=== PATIENT | male | born 1945 | race Caucasian/White ===

== ENCOUNTER 2018-06-29 11:27 | Emergency (ER) | payer MEDICARE, BC ==
[2018-06-29 11:53] VITALS: BP 125/76
[2018-06-29] MEDS ORDERED: methylPREDNISolone Sodium Succinate 125 MG/2 ML SDV IVPUSH ONE (12:10)
[2018-06-29] MEDS ORDERED: Albuterol/Ipratropium 3.0-0.5 MG/3 ML Neb Soln NEB ONE (12:10)
[2018-06-29] MEDS ORDERED: Sodium Chloride 0.9% 10 ML Syringe FLUSH PRN (12:10)
--- NOTE | 2018-06-29 12:11 | EDM.PDOC ---
ED HPI GENERAL MEDICAL PROBLEM - General Chief Complaint: Respiratory Problem Stated Complaint: DIFFICULTY BREATHING Time Seen by Provider: 06/29/18 11:58 Source of Information: Reports: Patient, RN Notes Reviewed - History of Present Illness INITIAL COMMENTS - FREE TEXT/NARRATIVE: 73-year-old male comes in with severe shortness of breath. Have history of COPD. He states he was a heavy smoker for many years, quit about 15 years ago. He does have oxygen at home, uses it as needed but apparently not all the time. He has become much more short of breath than usual the past 4-5 days. He's now he can only walk 5 or 10 feet does get extremely short of breath. He has occasional chronic cough but states it is not any worse than usual. He is not aware of any recent fever or chills although he does have very low-grade fever on arrival to ED. He denies current sore throat. He denies chest or abdominal pain. No nausea or vomiting. - Related Data Allergies Allergy/AdvReac Type Severity Reaction Status Date / Time No Known Allergies Allergy Verified 06/29/18 11:40 Home Meds: Home Meds Albuterol [Proventil HFA] 1 puff INH Q4H PRN 01/11/15 [History] Brinzolamide [Azopt 1% Ophth Susp] 1 drop EYEBOTH BID 01/11/15 [History] Travoprost [Travatan Z 0.004% Ophth Soln] 1 drop EYEBOTH BEDTIME 01/11/15 [ History] Brimonidine Tartrate [Brimonidine Tartrate 0.2% Ophth Soln] 1 drop EYEBOTH BID 09/01/15 [History] Umeclidinium Brm/Vilanterol Tr [Anoro Ellipta 62.5-25 Mcg INH] 1 each IH DAILY 09/01/15 [History] Budesonide/Formoterol [Symbicort 160-4.5 MCG] 2 puff INH BID 06/29/18 [History] Past Medical History HEENT History: Reports: Impaired Vision Other HEENT History: detatched retina to R) eye, wears reading glasses Cardiovascular History: Reports: High Cholesterol Respiratory History: Reports: COPD Other Respiratory History: emphysema - Infectious Disease History Infectious Disease History: Reports: Measles Social & Family History - Tobacco Use Smoking Status *Q: Former Smoker Years of Tobacco use: 62 Used Tobacco, but Quit: No Second Hand Smoke Exposure: No - Caffeine Use Caffeine Use: Reports: Coffee - Alcohol Use Days Per Week of Alcohol Use: 7 Number of Drinks Per Day: 2 Total Drinks Per Week: 14 - Recreational Drug Use Recreational Drug Use: No ED ROS GENERAL - Review of Systems Review Of Systems: See Below Constitutional: Denies: Fever, Chills, Diaphoresis HEENT: Denies: Sinus Problem, Throat Pain Respiratory: Reports: Shortness of Breath, Wheezing (Severe), Cough. Denies: Pleuritic Chest Pain ( worse than usual), Sputum (Scant) Cardiovascular: Reports: Lightheadedness. Denies: Chest Pain GI/Abdominal: Denies: Abdominal Pain, Nausea, Vomiting Musculoskeletal: Denies: Shoulder Pain, Arm Pain Skin: Denies: Rash Neurological: Denies: Numbness, Tingling ED EXAM, GENERAL - Physical Exam Exam: See Below General Appearance: Alert, Moderate Distress Eye Exam: Bilateral Eye: PERRL Nose: Normal Inspection Throat/Mouth: Normal Inspection, Normal Oropharynx Head: Atraumatic. No: Facial Swelling Neck: Supple, Other (No JVD) Respiratory/Chest: Respiratory Distress (Moderate), Wheezing (Moderate), Accessory Muscle Use. No: Rhonchi Cardiovascular: Tachycardia GI/Abdominal: Soft, Non-Tender Back Exam: No: CVA Tenderness (L), CVA Tenderness (R) Extremities: Normal Inspection. No: Pedal Edema, Leg Pain Neurological: Alert, Oriented, No Motor/Sensory Deficits Skin Exam: Warm, Dry, Normal Color EKG INTERPRETATION EKG Date: 06/29/18 Rhythm: Other (Sinus tachycardia) Rate (Beats/Min): 108 [place]: Normal P-Wave: Present QRS: Other (Q waves V2) ST-T: Normal Course - Vital Signs Last Recorded V/S: Last Vital Signs Temp 99.3 F 06/29/18 11:35 Pulse 132 H 06/29/18 11:35 Resp 20 06/29/18 11:35 BP 125/76 06/29/18 11:35 Pulse Ox 96 06/29/18 13:26 - Orders/Labs/Meds Orders: Active Orders 24 hr Category Date Time Status EKG 12 Lead [EKG Documentation Completion] [RC] STAT Care 06/29/18 12:09 Active Oxygen Therapy [RC] ASDIRECTED Care 06/29/18 12:10 Active Peripheral IV Care [RC] . DIRECTED Care 06/29/18 12:10 Active RT Aerosol Therapy [RC] ASDIRECTED Care 06/29/18 12:10 Active RT Aerosol Therapy [RC] ASDIRECTED Care 06/29/18 13:13 Active Chest 1V Frontal [CR] Stat Exams 06/29/18 12:08 Taken Sodium Chloride 0.9% [Saline Flush] Med 06/29/18 12:10 Active 10 ml FLUSH ASDIRECTED PRN Peripheral IV Insertion Pediatric [OM.PC] Routine Oth 06/29/18 12:10 Ordered Medication Orders Sodium Chloride (Saline Flush) 10 ml FLUSH ASDIRECTED PRN PRN Reason: Keep Vein Open Last Admin: 06/29/18 12:20 Dose: 10 ml Labs: Laboratory Tests 06/29/18 06/29/18 06/29/18 Range/Units 12:40 12:40 12:40 WBC 7.37 (4.23-9.07) K/mm3 RBC 5.00 (4.63-6.08) M/mm3 Hgb 15.3 (13.7-17.5) gm/L Hct 46.8 (40.1-51.0) % MCV 93.6 H (79.0-92.2) fl MCH 30.6 (25.7-32.2) pg MCHC 32.7 (32.2-35.5) g/dl RDW Std Deviation 45.7 H (35.1-43.9) fL Plt Count 229 (163-337) K/mm3 MPV 9.6 (9.4-12.3) fl Neutrophils % (Manual) 78 H (40-60) % Band Neutrophils % 0 (0-10) % Lymphocytes % (Manual) 7 L (20-40) % Atypical Lymphs % 0 % Monocytes % (Manual) 10 (2-10) % Eosinophils % (Manual) 5 (0.8-7.0) % Basophils % (Manual) 0 L (0.2-1.2) Platelet Estimate Adequate RBC Morph Comment Normal D-Dimer, Quantitative (0.19-0.50) mg/L Sodium 142 (136-145) mEq/L Potassium 4.7 (3.5-5.1) mEq/L Chloride 103 (98-107) mEq/L Carbon Dioxide 27 (21-32) mEq/L Anion Gap 16.7 H (5-15) BUN 9 (7-18) mg/dL Creatinine 0.9 (0.7-1.3) mg/dL Est Cr Clr Drug Dosing 65.21 mL/min Estimated GFR (MDRD) > 60 (>60) mL/min BUN/Creatinine Ratio 10.0 L (14-18) Glucose 92 (83-115) mg/dL Calcium 9.2 (8.5-10.1) mg/dL Total Bilirubin 0.7 (0.2-1.0) mg/dL AST 30 (15-37) U/L ALT 34 (16-63) U/L Alkaline Phosphatase 76 (46-116) U/L Troponin I 0.202 H* (0.00-0.056) ng/mL C-Reactive Protein 0.7 (<1.0) mg/dL Total Protein 7.0 (6.4-8.2) g/dl Albumin 3.6 (3.4-5.0) g/dl Globulin 3.4 gm/dL Albumin/Globulin Ratio 1.1 (1-2) TSH 3rd Generation (0.358-3.74) uIU/mL 06/29/18 06/29/18 Range/Units 12:40 12:40 WBC (4.23-9.07) K/mm3 RBC (4.63-6.08) M/mm3 Hgb (13.7-17.5) gm/L Hct (40.1-51.0) % MCV (79.0-92.2) fl MCH (25.7-32.2) pg MCHC (32.2-35.5) g/dl RDW Std Deviation (35.1-43.9) fL Plt Count (163-337) K/mm3 MPV (9.4-12.3) fl Neutrophils % (Manual) (40-60) % Band Neutrophils % (0-10) % Lymphocytes % (Manual) (20-40) % Atypical Lymphs % % Monocytes % (Manual) (2-10) % Eosinophils % (Manual) (0.8-7.0) % Basophils % (Manual) (0.2-1.2) Platelet Estimate RBC Morph Comment D-Dimer, Quantitative 0.27 (0.19-0.50) mg/L Sodium (136-145) mEq/L Potassium (3.5-5.1) mEq/L Chloride (98-107) mEq/L Carbon Dioxide (21-32) mEq/L Anion Gap (5-15) BUN (7-18) mg/dL Creatinine (0.7-1.3) mg/dL Est Cr Clr Drug Dosing mL/min Estimated GFR (MDRD) (>60) mL/min BUN/Creatinine Ratio (14-18) Glucose (83-115) mg/dL Calcium (8.5-10.1) mg/dL Total Bilirubin (0.2-1.0) mg/dL AST (15-37) U/L ALT (16-63) U/L Alkaline Phosphatase (46-116) U/L Troponin I (0.00-0.056) ng/mL C-Reactive Protein (<1.0) mg/dL Total Protein (6.4-8.2) g/dl Albumin (3.4-5.0) g/dl Globulin gm/dL Albumin/Globulin Ratio (1-2) TSH 3rd Generation 1.221 (0.358-3.74) uIU/mL Meds: Medications Generic Name Dose Route Start Last Admin Trade Name Freq PRN Reason Stop Dose Admin Sodium Chloride 10 ml 06/29/18 12:10 06/29/18 12:20 Saline Flush FLUSH 10 ml ASDIRECTED PRN Administration Keep Vein Open Discontinued Medications Generic Name Dose Route Start Last Admin Trade Name Freq PRN Reason Stop Dose Admin Albuterol 2.5 mg 06/29/18 13:13 06/29/18 13:24 Proventil Neb Soln NEB 06/29/18 13:14 2.5 mg ONETIME ONE Administration Albuterol/Ipratropium 3 ml 06/29/18 12:10 06/29/18 12:26 Duoneb 3.0-0.5 Mg/3 Ml NEB 06/29/18 12:11 3 ml ONETIME ONE Administration Sodium Chloride 250 mls @ 999 mls/hr 06/29/18 13:59 06/29/18 14:10 Normal Saline IV 06/29/18 14:14 999 mls/hr .BOLUS ONE Administration Methylprednisolone Sodium Succinate 125 mg 06/29/18 12:10 06/29/18 12:20 Solu-Medrol IVPUSH 06/29/18 12:11 125 mg ONETIME ONE Administration - Re-Assessments/Exams Free Text/Narrative Re-Assessment/Exam: 06/29/18 13:52 Chest x-ray shows very marked hyperinflation compatible with advanced COPD, no visible infiltrates no visible pulmonary congestion, effusion or other apparent abnormality other than the extreme hyperinflation. White blood count has come back normal, d-dimer normal. Troponin did come back elevated at 0.2. I suspect this is some demand ischemia, cannot rule out recent OH. He presented with heart rate in the 120s and has continued to run from about 105-115. We did give him a dual neb treatment initially along with Solu-Medrol 125 mg IV. We did follow-up with an albuterol neb treatment about a half hour ago. O2 sats are running about 95% with 2 L nasal cannula. 06/29/18 14:32. I did visit with family about need for admission severe exacerbation COPD and with a troponin elevated. They would prefer that he be transferred to [facility] where higher level of care, Pulmonology, Cardiology would be available if needed. I have discussed this with hospitalist information coordinator Dr. Snider, Hospitalist who does accept patient in transfer. He will be transferred by ground ambulance 06/29/18 15:03 Departure - Departure Time of Disposition: 14:45 Disposition: DC/Tfer to Acute Hospital 02 Condition: Serious Clinical Impression: COPD exacerbation, Elevated troponin - Discharge Information Referrals: Sarahy Grey MD [Primary Care Provider] - Forms: ED Department Discharge - My Orders Last 24 Hours: My Active Orders 06/29/18 12:08 Chest 1V Frontal [CR] Stat 06/29/18 12:09 EKG 12 Lead [EKG Documentation Completion] [RC] STAT 06/29/18 12:10 Oxygen Therapy [RC] ASDIRECTED Peripheral IV Care [RC] . DIRECTED RT Aerosol Therapy [RC] ASDIRECTED Sodium Chloride 0.9% [Saline Flush] 10 ml FLUSH ASDIRECTED PRN Peripheral IV Insertion Pediatric [OM.PC] Routine 06/29/18 13:13 RT Aerosol Therapy [RC] ASDIRECTED - Assessment/Plan Last 24 Hours: My Active Orders 06/29/18 12:08 Chest 1V Frontal [CR] Stat 06/29/18 12:09 EKG 12 Lead [EKG Documentation Completion] [RC] STAT 06/29/18 12:10 Oxygen Therapy [RC] ASDIRECTED Peripheral IV Care [RC] . DIRECTED RT Aerosol Therapy [RC] ASDIRECTED Sodium Chloride 0.9% [Saline Flush] 10 ml FLUSH ASDIRECTED PRN Peripheral IV Insertion Pediatric [OM.PC] Routine 06/29/18 13:13 RT Aerosol Therapy [RC] ASDIRECTED
[2018-06-29] MEDS ORDERED: Albuterol 0.083% 2.5 MG/3 ML Neb Soln NEB ONE (13:13)
[2018-06-29] MEDS ORDERED: Sodium Chloride 0.9% 250 ML IV ONE (13:59)
--- NOTE | 2018-06-30 18:27 | CR ---
Chest: Portable view of the chest was obtained. Comparison: Prior chest x-ray of 01/11/15. Heart size and mediastinum are within normal limits. Parenchymal scarring is noted within both upper lungs. Lungs show no acute parenchymal change. Lungs are hyperinflated. Bony structures are grossly intact. Impression: 1. Emphysematous change. Other chronic findings. 2. Nothing acute is appreciated. Diagnostic code #2
== END 2018-06-29 14:55 ==
LOC: SUPCPDRO 11:27 → JD.ED 11:27
DX: J44.1 Chronic obstructive pulmonary disease with (acute) exacerbation (principal); R79.89 Other specified abnormal findings of blood chemistry; E78.00 Pure hypercholesterolemia, unspecified; Z87.891 Personal history of nicotine dependence; Z79.899 Other long term (current) drug therapy
CPT/HCPCS: 36415; 71045; 80053; 84443; 84484; 85007; 85027; 85379; 86140; 87804; 93005; 94640; 96374; 99285; J2930; J7040; 93010; J7620-GY

== ENCOUNTER 2019-04-26 15:17 | Inpatient (IN) | payer OTHER, MEDICARE, BC ==
[2019-04-26] MEDS ORDERED: Diltiazem 50 MG/10 ML SDV IVPUSH ONE (15:45)
[2019-04-26] MEDS ORDERED: Sodium Chloride 0.9% 1,000 ML IV SCH (15:45)
--- NOTE | 2019-04-26 15:48 | EDM.PDOC ---
ED HPI GENERAL MEDICAL PROBLEM - General Chief Complaint: Respiratory Problem Stated Complaint: DIFFICULTY BREATHING Time Seen by Provider: 04/26/19 15:46 Source of Information: Reports: Patient History Limitations: Reports: No Limitations - History of Present Illness INITIAL COMMENTS - FREE TEXT/NARRATIVE: 73-year-old man with terminal COPD presents to the ED with exacerbation of a narrow he presents in severe respiratory distress. He is in the tripod position leaning over the table to get his air. Mild peripheral cyanosis. Noted complex tachycardia that on the monitor appeared to be represent atrial fibrillation but later on the ECG revealed sinus tachycardia with biatrial hypertrophy pattern after he was slow down with the dose of diltiazem 10 mg IV. Patient is on oxygen at all 4 L/m during the day and usually 2 L by nasal cannula at bedtime. Onset: Gradual (Gradually getting worse over the last 2 days.) Onset Date: 04/24/19 Duration: Day(s):, Getting Worse Location: Reports: Chest (Increased shortness of breath even at rest.) Quality: Reports: Other (Dear dyspnea.) Severity: Severe Improves with: Reports: Rest Worsens with: Reports: Movement (Even at rest he is short of breath but exertion makes it much worse.) Context: Denies: Activity, Exercise, Lifting, Sick Contact, Trauma, Other Associated Symptoms: Reports: Cough, Loss of Appetite, Malaise, Shortness of Breath. Denies: No Other Symptoms, Confusion, Chest Pain, cough w sputum, Diaphoresis, Fever/Chills, Headaches Treatments DOBIE MAN: Reports: Other (see below) (Only his prescribed medications) - Related Data Allergies Allergy/AdvReac Type Severity Reaction Status Date / Time No Known Allergies Allergy Verified 06/29/18 11:40 Home Meds: Home Meds Albuterol [Proventil HFA] 1 puff INH Q4H PRN 01/11/15 [History] Brinzolamide [Azopt 1% Ophth Susp] 1 drop EYEBOTH BID 01/11/15 [History] Travoprost [Travatan Z 0.004% Ophth Soln] 1 drop EYEBOTH BEDTIME 01/11/15 [ History] Brimonidine Tartrate [Brimonidine Tartrate 0.2% Ophth Soln] 1 drop EYEBOTH BID 09/01/15 [History] Umeclidinium Brm/Vilanterol Tr [Anoro Ellipta 62.5-25 Mcg INH] 1 each IH DAILY 09/01/15 [History] Budesonide/Formoterol [Symbicort 160-4.5 MCG] 2 puff INH BID 06/29/18 [History] Past Medical History HEENT History: Reports: Cataract, Glaucoma, Impaired Vision Other HEENT History: detatched retina to R) eye, wears reading glasses.. One of his eye medications or drops were just recently discontinued because of persistent redness of the eye bleeding that he is likely developed an allergy to it. Cardiovascular History: Reports: Afib, High Cholesterol Respiratory History: Reports: COPD Other Respiratory History: emphysema - Infectious Disease History Infectious Disease History: Reports: Measles - Past Surgical History HEENT Surgical History: Reports: Cataract Surgery Other HEENT Surgeries/Procedures: sugery to bilateral eyes. Social & Family History - Tobacco Use Smoking Status *Q: Former Smoker Used Tobacco, but Quit: Yes Month/Year Tobacco Last Used: 2005 - Caffeine Use Caffeine Use: Reports: Coffee - Recreational Drug Use Recreational Drug Use: No - Living Situation & Occupation Living situation: Reports: Occupation: Retired ED ROS GENERAL - Review of Systems Review Of Systems: See Below Constitutional: Reports: Malaise, Weakness, Fatigue, Decreased Appetite, Weight Loss. Denies: Fever, Chills HEENT: Reports: Glasses. Denies: Contact Lenses Respiratory: Reports: Shortness of Breath, Wheezing Cardiovascular: Reports: Dyspnea on Exertion, Lightheadedness. Denies: Chest Pain, Claudication, Edema, Orthopnea Endocrine: Reports: Fatigue GI/Abdominal: Reports: Constipation : Reports: Frequency, Other (Nocturia usually 3.) Musculoskeletal: Reports: Neck Pain, Shoulder Pain, Back Pain, Joint Pain ( Knees and hips at times) Skin: Reports: No Symptoms Neurological: Reports: No Symptoms Psychiatric: Reports: No Symptoms Hematologic/Lymphatic: Reports: No Symptoms Immunologic: Reports: No Symptoms ED EXAM, GENERAL - Physical Exam Exam: See Below Exam Limited By: No Limitations General Appearance: Alert, WD/WN, No Apparent Distress, Anxious, Severe Distress (Respiratory distress) Eye Exam: Right Eye: Conjunctival Injection (Quite marked but apparently a little bit better than it was yesterday. Instructed to stop his eye drops for a week and see if the eye inflammation doesn't settle down. His pressure in the right eye is higher than the left. He had trabecular trabeculectomy on the left eye and is scheduled for trabeculectomy on the right eye due to persistent intraocular hypertension), Bilateral Eye: Vision Changes (Loss of peripheral vision bilaterally.) Throat/Mouth: Other Head: Atraumatic, Normocephalic (Tongue is dry and coated.) Neck: Limited Range of Motion, Other. No: Full Range of Motion, Lymphadenopathy (L), Lymphadenopathy (R) Respiratory/Chest: Respiratory Distress (Severe. In the tripod position due to severe dyspnea.), Decreased Breath Sounds (Decreased breath sounds to the lower 70% of lungs bilaterally. Only air entry that I can hear his to the upper lobes anteriorly.), Wheezing (Old very occasional expiratory wheeze.). No: Lungs Clear, Normal Breath Sounds, Rhonchi Cardiovascular: No Edema, No Gallop, No JVD, Tachycardia (A complex tachycardia initially with the appearance of atrial fibrillation in the 140s. So down with Cardizem I'm 10 mg IV bolus it revealed that this was then packed a sinus tachycardia.), Other (Heart sounds are very difficult to hear over the adventitial sounds and his rapid rate of breathing.). No: Normal Peripheral Pulses Peripheral Pulses: 1+: Posterior Tibial (L), Posterior Tibial (R), Dorsalis Pedis (L), Dorsalis Pedis (R) GI/Abdominal: Soft, Non-Tender, No Organomegaly, Distended (He is distended upper abdomen and tympanitic to percussion compatible with aerophagia.) Back Exam: Decreased Range of Motion, Other. No: CVA Tenderness (L) (Kyphosis thoracic spine. Does have a restrictive lung disease component to his chronic obstructive pulmonary component.), CVA Tenderness (R) Extremities: Normal Inspection, Normal Range of Motion, No Pedal Edema Neurological: Alert, Oriented, CN II-XII Intact, Normal Cognition, Other (Can only talk in one or 2 word sentences due to severe dyspnea.) Psychiatric: Anxious, Other (In severe respiratory distress) Skin Exam: Warm, Dry, Intact, Other EKG INTERPRETATION EKG Date: 04/26/19 Time: 16:00 Rhythm: Other (Sinus tachycardia at 127/m. Note this was after he was given Cardizem 10 mg IV bolus because the right and biatrial hypertrophy appear to look like atrial fibrillation but in fact is sinus tachycardia.) Rate (Beats/Min): 128 Holly: Normal P-Wave: Enlarged (Biatrial hypertrophies) QRS: Other (There are Q waves V1 and V2 and near Q-wave V3 suggesting old anteroseptal myocardial infarction. Decreased voltage in the limb leads. Q waves in leads aVL nonspecific finding) ST-T: Other (T-wave flattening in lead 1.) QT: Prolonged (Mildly prolonged) EKG Interpretation Comments: Abnormal ECG Course - Vital Signs Last Recorded V/S: Last Vital Signs Temp 37.1 C 04/27/19 01:05 Pulse 88 04/27/19 02:00 Resp 12 04/27/19 01:05 BP 89/66 L 04/27/19 02:00 Pulse Ox 97 04/27/19 01:07 - Orders/Labs/Meds Labs: Laboratory Tests 04/26/19 04/26/19 04/26/19 Range/Units 16:35 16:35 16:35 WBC 16.07 H (4.23-9.07) K/mm3 RBC 4.89 (4.63-6.08) M/mm3 Hgb 15.2 (13.7-17.5) gm/dl Hct 45.9 (40.1-51.0) % MCV 93.9 H (79.0-92.2) fl MCH 31.1 (25.7-32.2) pg MCHC 33.1 (32.2-35.5) g/dl RDW Std Deviation 46.4 H (35.1-43.9) fL Plt Count 206 (163-337) K/mm3 MPV 9.8 (9.4-12.3) fl Neutrophils % (Manual) 94 H (40-60) % Band Neutrophils % 1 (0-10) % Lymphocytes % (Manual) 4 L (20-40) % Atypical Lymphs % 0 % Monocytes % (Manual) 1 L (2-10) % Eosinophils % (Manual) 0 L (0.8-7.0) % Basophils % (Manual) 0 L (0.2-1.2) Platelet Estimate Adequate RBC Morph Comment Normal PT (9.7-12.0) SECONDS INR APTT (22-31) SECONDS D-Dimer, Quantitative (0.19-0.50) mg/L Puncture Site ABG pH (7.35-7.45) ABG pCO2 (35.0-45.0) mmHg ABG pO2 (80.0-100.0) mmHg ABG HCO3 (22.0-26.0) meq/L ABG O2 Saturation (96.0-97.0) % ABG Base Excess (-2-2.0) Ramirez Test O2 Delivery Device Oxygen Flow Rate FiO2 (21.00-100.00) % Sodium 137 (136-145) mEq/L Potassium 4.9 (3.5-5.1) mEq/L Chloride 100 (98-107) mEq/L Carbon Dioxide 29 (21-32) mEq/L Anion Gap 12.9 (5-15) BUN 12 (7-18) mg/dL Creatinine 0.8 (0.7-1.3) mg/dL Est Cr Clr Drug Dosing 70.15 mL/min Estimated GFR (MDRD) > 60 (>60) mL/min BUN/Creatinine Ratio 15.0 (14-18) Glucose 100 (83-115) mg/dL Hemoglobin A1c (4.50-6.20) % Lactic Acid (0.4-2.0) mmol/L Calcium 9.4 (8.5-10.1) mg/dL Magnesium 2.0 (1.8-2.4) mg/dl Total Bilirubin 0.5 (0.2-1.0) mg/dL AST 29 (15-37) U/L ALT 33 (16-63) U/L Alkaline Phosphatase 78 (46-116) U/L CK-MB (CK-2) 9.2 H (0-3.6) ng/ml Troponin I 1.338 H* (0.00-0.056) ng/mL C-Reactive Protein < 0.2 (<1.0) mg/dL NT-Pro-B Natriuret Pep 206 H (0-125) pg/mL Total Protein 7.5 (6.4-8.2) g/dl Albumin 4.1 (3.4-5.0) g/dl Globulin 3.4 gm/dL Albumin/Globulin Ratio 1.2 (1-2) Triglycerides (<150) mg/dL Cholesterol (<200) mg/dL LDL Cholesterol Direct (<100) mg/dL HDL Cholesterol (40-59) mg/dL Procalcitonin (<0.10) ng/mL Ethyl Alcohol 0.00 (0.00) gm% Mycoplasma pneumon IgM (NEGATIVE) 04/26/19 04/26/19 04/26/19 Range/Units 16:35 16:35 17:02 WBC (4.23-9.07) K/mm3 RBC (4.63-6.08) M/mm3 Hgb (13.7-17.5) gm/dl Hct (40.1-51.0) % MCV (79.0-92.2) fl MCH (25.7-32.2) pg MCHC (32.2-35.5) g/dl RDW Std Deviation (35.1-43.9) fL Plt Count (163-337) K/mm3 MPV (9.4-12.3) fl Neutrophils % (Manual) (40-60) % Band Neutrophils % (0-10) % Lymphocytes % (Manual) (20-40) % Atypical Lymphs % % Monocytes % (Manual) (2-10) % Eosinophils % (Manual) (0.8-7.0) % Basophils % (Manual) (0.2-1.2) Platelet Estimate RBC Morph Comment PT 10.1 (9.7-12.0) SECONDS INR < 0.93 APTT 24 (22-31) SECONDS D-Dimer, Quantitative 1.64 H (0.19-0.50) mg/L Puncture Site Lt radial ABG pH 7.34 L (7.35-7.45) ABG pCO2 46.2 H (35.0-45.0) mmHg ABG pO2 121.0 H (80.0-100.0) mmHg ABG HCO3 24.4 (22.0-26.0) meq/L ABG O2 Saturation 98.4 H (96.0-97.0) % ABG Base Excess -1.1 (-2-2.0) Ramirez Test Positive O2 Delivery Device Nasal cannula Oxygen Flow Rate 4.0 FiO2 36.00 (21.00-100.00) % Sodium (136-145) mEq/L Potassium (3.5-5.1) mEq/L Chloride (98-107) mEq/L Carbon Dioxide (21-32) mEq/L Anion Gap (5-15) BUN (7-18) mg/dL Creatinine (0.7-1.3) mg/dL Est Cr Clr Drug Dosing mL/min Estimated GFR (MDRD) (>60) mL/min BUN/Creatinine Ratio (14-18) Glucose (83-115) mg/dL Hemoglobin A1c 5.60 (4.50-6.20) % Lactic Acid (0.4-2.0) mmol/L Calcium (8.5-10.1) mg/dL Magnesium (1.8-2.4) mg/dl Total Bilirubin (0.2-1.0) mg/dL AST (15-37) U/L ALT (16-63) U/L Alkaline Phosphatase (46-116) U/L CK-MB (CK-2) (0-3.6) ng/ml Troponin I (0.00-0.056) ng/mL C-Reactive Protein (<1.0) mg/dL NT-Pro-B Natriuret Pep (0-125) pg/mL Total Protein (6.4-8.2) g/dl Albumin (3.4-5.0) g/dl Globulin gm/dL Albumin/Globulin Ratio (1-2) Triglycerides (<150) mg/dL Cholesterol (<200) mg/dL LDL Cholesterol Direct (<100) mg/dL HDL Cholesterol (40-59) mg/dL Procalcitonin (<0.10) ng/mL Ethyl Alcohol (0.00) gm% Mycoplasma pneumon IgM (NEGATIVE) 04/26/19 04/26/19 04/26/19 Range/Units 20:50 20:50 20:50 WBC (4.23-9.07) K/mm3 RBC (4.63-6.08) M/mm3 Hgb (13.7-17.5) gm/dl Hct (40.1-51.0) % MCV (79.0-92.2) fl MCH (25.7-32.2) pg MCHC (32.2-35.5) g/dl RDW Std Deviation (35.1-43.9) fL Plt Count (163-337) K/mm3 MPV (9.4-12.3) fl Neutrophils % (Manual) (40-60) % Band Neutrophils % (0-10) % Lymphocytes % (Manual) (20-40) % Atypical Lymphs % % Monocytes % (Manual) (2-10) % Eosinophils % (Manual) (0.8-7.0) % Basophils % (Manual) (0.2-1.2) Platelet Estimate RBC Morph Comment PT (9.7-12.0) SECONDS INR APTT (22-31) SECONDS D-Dimer, Quantitative (0.19-0.50) mg/L Puncture Site ABG pH (7.35-7.45) ABG pCO2 (35.0-45.0) mmHg ABG pO2 (80.0-100.0) mmHg ABG HCO3 (22.0-26.0) meq/L ABG O2 Saturation (96.0-97.0) % ABG Base Excess (-2-2.0) Ramirez Test O2 Delivery Device Oxygen Flow Rate FiO2 (21.00-100.00) % Sodium (136-145) mEq/L Potassium (3.5-5.1) mEq/L Chloride (98-107) mEq/L Carbon Dioxide (21-32) mEq/L Anion Gap (5-15) BUN (7-18) mg/dL Creatinine (0.7-1.3) mg/dL Est Cr Clr Drug Dosing mL/min Estimated GFR (MDRD) (>60) mL/min BUN/Creatinine Ratio (14-18) Glucose (83-115) mg/dL Hemoglobin A1c (4.50-6.20) % Lactic Acid 2.8 H* (0.4-2.0) mmol/L Calcium (8.5-10.1) mg/dL Magnesium (1.8-2.4) mg/dl Total Bilirubin (0.2-1.0) mg/dL AST (15-37) U/L ALT (16-63) U/L Alkaline Phosphatase (46-116) U/L CK-MB (CK-2) (0-3.6) ng/ml Troponin I 1.908 H* (0.00-0.056) ng/mL C-Reactive Protein (<1.0) mg/dL NT-Pro-B Natriuret Pep (0-125) pg/mL Total Protein (6.4-8.2) g/dl Albumin (3.4-5.0) g/dl Globulin gm/dL Albumin/Globulin Ratio (1-2) Triglycerides (<150) mg/dL Cholesterol (<200) mg/dL LDL Cholesterol Direct (<100) mg/dL HDL Cholesterol (40-59) mg/dL Procalcitonin 0.36 H (<0.10) ng/mL Ethyl Alcohol (0.00) gm% Mycoplasma pneumon IgM Negative (NEGATIVE) 04/26/19 Range/Units 20:50 WBC (4.23-9.07) K/mm3 RBC (4.63-6.08) M/mm3 Hgb (13.7-17.5) gm/dl Hct (40.1-51.0) % MCV (79.0-92.2) fl MCH (25.7-32.2) pg MCHC (32.2-35.5) g/dl RDW Std Deviation (35.1-43.9) fL Plt Count (163-337) K/mm3 MPV (9.4-12.3) fl Neutrophils % (Manual) (40-60) % Band Neutrophils % (0-10) % Lymphocytes % (Manual) (20-40) % Atypical Lymphs % % Monocytes % (Manual) (2-10) % Eosinophils % (Manual) (0.8-7.0) % Basophils % (Manual) (0.2-1.2) Platelet Estimate RBC Morph Comment PT (9.7-12.0) SECONDS INR APTT (22-31) SECONDS D-Dimer, Quantitative (0.19-0.50) mg/L Puncture Site ABG pH (7.35-7.45) ABG pCO2 (35.0-45.0) mmHg ABG pO2 (80.0-100.0) mmHg ABG HCO3 (22.0-26.0) meq/L ABG O2 Saturation (96.0-97.0) % ABG Base Excess (-2-2.0) Ramirez Test O2 Delivery Device Oxygen Flow Rate FiO2 (21.00-100.00) % Sodium (136-145) mEq/L Potassium (3.5-5.1) mEq/L Chloride (98-107) mEq/L Carbon Dioxide (21-32) mEq/L Anion Gap (5-15) BUN (7-18) mg/dL Creatinine (0.7-1.3) mg/dL Est Cr Clr Drug Dosing mL/min Estimated GFR (MDRD) (>60) mL/min BUN/Creatinine Ratio (14-18) Glucose (83-115) mg/dL Hemoglobin A1c (4.50-6.20) % Lactic Acid (0.4-2.0) mmol/L Calcium (8.5-10.1) mg/dL Magnesium (1.8-2.4) mg/dl Total Bilirubin (0.2-1.0) mg/dL AST (15-37) U/L ALT (16-63) U/L Alkaline Phosphatase (46-116) U/L CK-MB (CK-2) (0-3.6) ng/ml Troponin I (0.00-0.056) ng/mL C-Reactive Protein (<1.0) mg/dL NT-Pro-B Natriuret Pep (0-125) pg/mL Total Protein (6.4-8.2) g/dl Albumin (3.4-5.0) g/dl Globulin gm/dL Albumin/Globulin Ratio (1-2) Triglycerides 31 (<150) mg/dL Cholesterol 146 (<200) mg/dL LDL Cholesterol Direct 57 (<100) mg/dL HDL Cholesterol 72.0 H (40-59) mg/dL Procalcitonin (<0.10) ng/mL Ethyl Alcohol (0.00) gm% Mycoplasma pneumon IgM (NEGATIVE) Meds: Medications Discontinued Medications Generic Name Dose Route Start Last Admin Trade Name Freq PRN Reason Stop Dose Admin Albuterol/Ipratropium 3 ml 04/26/19 16:32 04/26/19 16:49 Duoneb 3.0-0.5 Mg/3 Ml NEB 04/26/19 16:33 3 ml ONETIME ONE Administration Albuterol/Ipratropium 3 ml 04/26/19 17:10 04/26/19 17:16 Duoneb 3.0-0.5 Mg/3 Ml NEB 04/26/19 17:11 3 ml ONETIME ONE Administration Aspirin 81 mg 04/27/19 09:00 Aspirin PO DAILY ALKA Aspirin 325 mg 04/27/19 03:00 04/27/19 02:21 Ecotrin PO 04/27/19 03:01 325 mg ONETIME ONE Administration Benzonatate 100 mg 04/27/19 09:00 Tessalon Perles PO TID [facility] Budesonide 0.5 mg 04/27/19 06:00 Pulmicort NEB BIDRT [facility] Clopidogrel Bisulfate 75 mg 04/27/19 09:00 Plavix PO DAILY [facility] Clopidogrel Bisulfate 300 mg 04/27/19 03:00 04/27/19 02:32 Plavix PO 04/27/19 03:01 300 mg ONETIME ONE Administration Diltiazem HCl 10 mg 04/26/19 15:45 04/26/19 16:18 Cardizem IVPUSH 04/26/19 15:46 10 mg ONETIME ONE Administration Esmolol HCl 12 mg 04/26/19 19:37 04/26/19 19:51 Esmolol IVPUSH 04/26/19 19:38 12 mg ONETIME ONE Administration Fentanyl 25 mcg 04/26/19 18:45 04/26/19 19:12 Sublimaze IVPUSH 04/26/19 18:46 25 mcg ONETIME ONE Administration Guaifenesin 600 mg 04/27/19 09:00 Mucinex PO BID [facility] Heparin Sodium (Porcine) 3,600 units 04/26/19 18:41 04/26/19 19:12 Heparin Sodium IVPUSH 04/26/19 18:42 3,600 units .BOLUS ONE Administration Diltiazem HCl 125 mg/ Sodium 125 mls @ 10 mls/hr 04/26/19 16:00 04/26/19 16: 22 Chloride IV 10 mg/hr TITRATE ALKA 10 mls/hr Administration 10 MG/HR Sodium Chloride 1,000 mls @ 100 mls/hr 04/26/19 15:45 04/26/19 16:20 Normal Saline IV 100 mls/hr ASDIRECTED ALKA Administration Heparin Sodium/Dextrose 25,000 units in 500 mls @ 18 mls/hr 04/26/19 18:45 19:13 Heparin 25,000 Units In D5w 500 Ml IV 900 units/hr TITRATE ALKA 18 mls/hr Administration 900 UNITS/HR Esmolol HCl 2.5 gm in 250 mls @ 17.826 mls/hr 04/26/19 19:45 Brevibloc In Ns Premix IV TITRATE ALKA 50 MCG/KG/MIN Esmolol HCl Confirm 04/26/19 19:46 04/26/19 19:51 Esmolol Hcl In Sterile Water 2,500 Mg/250 Ml Administered 04/26/19 19:47 Not Given Dose 250 mls @ as directed .ROUTE .STK-MED ONE Esmolol HCl 250 mls @ 17.826 mls/hr 04/26/19 20:00 04/26/19 19:51 Esmolol Hcl In Sterile Water 2,500 Mg/250 Ml IV 50 mcg/kg/min TITRATE ALKA 17.826 mls/hr Administration 50 MCG/KG/MIN Sodium Chloride 100 mls @ 5 mls/sec 04/26/19 20:15 04/26/19 20:36 Normal Saline IV 5 mls/sec ASDIRECTED ALKA Administration Azithromycin 500 mg/ Sodium 250 mls @ 250 mls/hr 04/27/19 00:00 04/27/19 01: 34 Chloride IV 250 mls/hr Q24H ALKA Administration Lactated Ringer's 1,000 mls @ 75 mls/hr 04/26/19 23:45 04/27/19 01:32 Ringers, Lactated IV 75 mls/hr ASDIRECTED ALKA Administration Iopamidol 100 ml 04/26/19 20:05 04/26/19 20:36 Isovue-370 (76%) IVPUSH 04/26/19 20:06 100 ml ONETIME ONE Administration Iopamidol 40 ml 04/26/19 20:05 04/26/19 20:36 Isovue-370 (76%) IVPUSH 04/26/19 20:06 40 ml ONETIME ONE Administration Ipratropium [place] 0.5 mg 04/27/19 06:00 Atrovent NEB Q8HRRT [facility] Methylprednisolone 4 mg 04/27/19 09:00 Medrol PO DAILY [facility] Methylprednisolone Sodium Succinate 125 mg 04/26/19 16:34 04/26/19 16:43 Solu-Medrol IVPUSH 04/26/19 16:35 125 mg ONETIME ONE Administration Nitroglycerin 0.4 mg 04/26/19 22:35 Nitrostat SL Q5M PRN Chest Pain Ondansetron HCl 4 mg 04/26/19 21:21 Zofran IV Q6H PRN Nausea/Vomiting Rosuvastatin Calcium 40 mg 04/27/19 21:00 Crestor PO BEDTIME [facility] - Radiology Interpretation Free Text/Narrative:: 73-year-old male presents to the ED in severe respiratory distress. He can talk only in one or 2 word sentences and is in the tripod position because of severe dyspnea. He states it gradually became worse since yesterday. He was down in the basement working on a compressor and perhaps some Freon gas alexys have gotten into the air he was breathing about 0830this am. which he feels may have exacerbated his symptoms. He denies much in the way of sputum production. He is on oxygen 4 L/m of all times at 2 L at bedtime. He presents with a tachycardia cardia which appeared initially to be atrial fibrillation at 147/m. However after he was given 10 mg of Cardizem the rate improved and it proved to be sinus tachycardia at 128/m. Placed on oxygen at 5 L/m by nasal cannula. Plan will be to do ABGs routine labs including a septic workup. One view chest x -ray portable. Solu-Medrol 125 mg IV. - Re-Assessments/Exams Free Text/Narrative Re-Assessment/Exam: 04/26/19 16:53 Chest x-ray done portably reveals hyperinflated lung ho bilaterally with no pneumothorax or infiltrates to suggest pneumonia. There is scarring in both bases compatible with perhaps mild pulmonary fibrosis component to his illness. 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 04/26/19 18:30 Labs reveal an elevated white count at 16.07. Pharyngeal shows 94 % neutrophils and 1% band cells. Hemoglobin is 15.2 with hematocrit of 45.9. Platelet count 206,000. PT is 10.1 with an INR of less than 0.93. PTT is 24. D- dimer is elevated at 1.64. His reveal a pH of 7.34. PCO2 is 46.2. PO2 is 121. Bicarbonate is 24 base excess is -1.1. This was carried out on nasal cannula at 4 L/m. Sodium 137 with potassium of 4.9. Chloride is 100 with bicarbonate of 29. Anion gap is 12.9. BUN is 12 with a creatinine of 0.8. GFR is greater than 60. Glucose is 100 with a calcium of 9.4. Magnesium is 2.0. Liver function is normal. CK-MB fraction is elevated at 9.2. Troponin is elevated at 1.338. C- reactive protein is less than 0.2. BNP is 26. Blood alcohol is 0.00. Total protein 7.5 with an albumin fraction of 4.1. Influenza screen is negative. Therefore patient has or is having a myocardial infarction. On further history taking when he is not so short of breath no he indicates that he is indeed having central chest pressure discomfort which he describes as a heaviness. He states this started around 0830 hrs. this morning while he was working on the compressor downstairs but he thought it was due to the Freon gas causing this discomfort. She still has the central chest pressure discomfort. He has been told that he had a myocardial infarction in the past and was sent to [place] but he doesn't remember if he had an angiogram and certainly doesn't believe he ever had any stents placed. His ECG does indeed show evidence of an old anteroseptal myocardial infarction but it does not show any signs of ST segment elevation or depression. His blood pressures only 105 systolic or he will not tolerate a nitroglycerin drip. He will be heparinized with a bolus of 60 units per kilogram which will work up to about 3600 units IV bolus and then started on a heparin drip at 15 units per kilogram per hour which will work out to 900 units an hour. Will give him fentanyl 25 g IV for pain relief. The weather is bad at present due to blowing snow and icy roads and there is no travel advised and ambulances are not transferring patients to [place] and the airport is completely closed . We have no way of transporting him to cardiac care. He understands this. Intensive care is already full because of inability transfer patients out and therefore he will be kept in the ED overnight for monitoring purposes. I will monitor is blood pressure to see if he can tolerate low-dose beta destiny. This would help reduce his heart rate which remains sinus tachycardia and reduce the workload on his heart. 04/26/19 19:10 blood pressure is 112/80. Therefore going to give him Lopressor 5 mg IV. He remains sinus tachycardia at 113. Mildly contraindicated and COPD. repeat ECG is essentially unchanged from the first one is tachycardic 113/m. There are Q waves V1 and V2 and near Q-wave in V3 consistent with an old anteroseptal myocardial infarction. He has biatrial hypertrophy. Decreased voltage limb leads . Borderline mild right axis deviation of 90 . He does show some multifocal PVCs at this time. QTC is minimally prolonged at 467. Decision made to place the patient on an Esmolol drip.Will give 200mcg/kg bolus the drip at 50mcg/kg/min. patient will be remaining in the emergency room tentatively overnight for care since the intensive care unit is full at this point time. Our resources are maximized elsewhere. The plan will be to transfer him to [place] tomorrow for definitive cardiology management and treatment. 04/26/19 21:01 blood pressure is down to 98/73. Heart rate is 99 and sinus. His had his CT pulmonary angiogram on my assessment has no evidence of pulmonary embolism. 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 Patient has been seen and assessed and is currently under the care of hospitalist Dr. Lawrence and will be monitored in the ED by Dr. Greene overnight. The plan will be to transfer him to [place] as soon as possible tomorrow per cardiology consultation and management of non-STEMI. Free Text/Narrative Re-Assessment/Exam: 04/29/19 08:14 due to weather conditions the patient was transferred out at about 1525 hrs. on April 28 by air balance I believe to [place]. His enzymes continue to elevate while he was in the ED. Departure - Departure Time of Disposition: 03:20 Disposition: DC/Tfer to Acute Hospital 02 Condition: Serious Clinical Impression: COPD exacerbation Acute myocardial infarction Qualifiers: Myocardial infarction type: non-ST elevation myocardial infarction Qualified Code(s): I21.4 - Non-ST elevation (NSTEMI) myocardial infarction - Discharge Information *PRESCRIPTION DRUG MONITORING PROGRAM REVIEWED*: Not Applicable *COPY OF PRESCRIPTION DRUG MONITORING REPORT IN PATIENT DARCIE: Not Applicable
[2019-04-26] MEDS ORDERED: Diltiazem 125 MG in Sodium Chloride 0.9% 100 ML IV SCH (16:00)
[2019-04-26] MEDS ORDERED: Albuterol/Ipratropium 3.0-0.5 MG/3 ML Neb Soln NEB ONE ×2 (16:32→17:10)
[2019-04-26] MEDS ORDERED: methylPREDNISolone Sodium Succinate 125 MG/2 ML SDV IVPUSH ONE (16:34)
[2019-04-26] MEDS ORDERED: Heparin Sodium 5,000 Units/ML Vial IVPUSH ONE (18:41)
[2019-04-26] MEDS ORDERED: Heparin Sodium/D5W 25,000 UNITS/500 ML BAG IV SCH (18:45)
[2019-04-26] MEDS ORDERED: fentaNYL 100 MCG/2 ML SDV IVPUSH ONE (18:45)
[2019-04-26] MEDS ORDERED: Esmolol 100 MG/10 ML SDV IVPUSH ONE (19:37)
[2019-04-26] MEDS ORDERED: Esmolol/Normal Saline 2.5 GM/250 ML BAG IV SCH (19:45)
[2019-04-26] MEDS ORDERED: Iopamidol 755 Mg/ML 100 ML Bottle IVPUSH ONE (20:05)
[2019-04-26] MEDS ORDERED: Iopamidol 755 MG/ML 50 ML Bottle IVPUSH ONE (20:05)
[2019-04-26] MEDS ORDERED: Sodium Chloride 0.9% 100 ML IV SCH (20:15)
[2019-04-26] MEDS ORDERED: Ondansetron 4 MG/2 ML SDV IV PRN (21:21)
--- NOTE | 2019-04-26 21:45 | PCM.HP.2 ---
H&P History of Present Illness - General Date of Service: 04/26/19 - History of Present Illness Initial Comments - Free Text/Narative: This is a 73 year old male with past medical history of chronic hypoxemic respiratory failure and advanced COPD who comes to the ED complaining of worsening shortness of breath for the past couple of days. As per patient last night he started having shortness of breath when he was in the basement, this resolved mildly when he sat down so he went to bed around 9PM , he slept ok. This morning, he woke up at 7:30 and he was very fatigued, it took him double the time he normally takes to get dressed. He called some friends over to help him change a compressor in his basement, while doing this he started having worsening shortness of breath and was unable to catch his breath. He went to the restroom and had a small BM, after which it took him almost 2 hours to be able to get up from the restroom, when friends brought over a wheelchair to get him in the car and bring him to the ED. He does state he has been requiring more rescue inhaler use than usual. He denies any fevers, chills, changes in sputum production, chest pain, palpitations, edema, PND, orthopnea. - Related Data Allergies/Adverse Reactions: Allergies Allergy/AdvReac Type Severity Reaction Status Date / Time No Known Allergies Allergy Verified 06/29/18 11:40 Home Medications: Home Meds Albuterol [Proventil HFA] 1 puff INH Q4H PRN 01/11/15 [History] Brinzolamide [Azopt 1% Ophth Susp] 1 drop EYEBOTH BID 01/11/15 [History] Travoprost [Travatan Z 0.004% Ophth Soln] 1 drop EYEBOTH BEDTIME 01/11/15 [ History] Brimonidine Tartrate [Brimonidine Tartrate 0.2% Ophth Soln] 1 drop EYEBOTH BID 09/01/15 [History] Umeclidinium Brm/Vilanterol Tr [Anoro Ellipta 62.5-25 Mcg INH] 1 each IH DAILY 09/01/15 [History] Budesonide/Formoterol [Symbicort 160-4.5 MCG] 2 puff INH BID 06/29/18 [History] Past Medical History HEENT History: Reports: Cataract, Glaucoma, Impaired Vision Other HEENT History: detatched retina to R) eye, wears reading glasses.. One of his eye medications or drops were just recently discontinued because of persistent redness of the eye bleeding that he is likely developed an allergy to it. Cardiovascular History: Reports: Afib, High Cholesterol Respiratory History: Reports: COPD Other Respiratory History: emphysema - Infectious Disease History Infectious Disease History: Reports: Measles - Past Surgical History HEENT Surgical History: Reports: Cataract Surgery Other HEENT Surgeries/Procedures: sugery to bilateral eyes. Social & Family History - Tobacco Use Smoking Status *Q: Former Smoker Used Tobacco, but Quit: Yes Month/Year Tobacco Last Used: 2005 - Caffeine Use Caffeine Use: Reports: Coffee - Recreational Drug Use Recreational Drug Use: No - Living Situation & Occupation Living situation: Reports: Occupation: Retired H&P Review of Systems - Review of Systems: Review Of Systems: See Below General: Reports: Malaise, Weakness, Fatigue, Weight Gain. Denies: Fever, Chills, Night Sweats, Diaphoresis, Decreased Appetite, Weight Loss HEENT: Denies: Headaches, Hearing Changes, Rhinitis, Post Nasal Drip, Sinus Congestion, Sore Throat, Vertigo, Visual Changes Pulmonary: Reports: Shortness of Breath, Cough, Sputum. Denies: Wheezing, Pleuritic Chest Pain, Hemoptysis Cardiovascular: Reports: Dyspnea on Exertion. Denies: Chest Pain, Palpitations , Orthopnea, PND, Edema, Lightheadedness, Syncope Gastrointestinal: Denies: Abdominal Pain, Anorexia, Constipation, Diarrhea, Decreased Appetite, Difficulty Swallowing, Distension, Flatus, Nausea, Vomiting Genitourinary: Reports: Incontinence (nocturia x 2, chronic). Denies: Dysuria, Frequency, Burning, Pain, Urgency Musculoskeletal: Denies: Joint Pain, Joint Swelling, Muscle Pain, Muscle Stiffness Skin: Denies: Cyanosis, Jaundice, Mottled, Pallor, Diaphoresis Psychiatric: Denies: Confusion, Depression, Mood Lability, Anxiety, Agitation Neurological: Denies: Confusion, Dizziness, Headache, Numbness Hematologic/Lymphatic: Denies: Anemia, Easy Bleeding, Easy Bruising Exam - Exam Exam: See Below - Vital Signs Vital Signs: Last Vital Signs Temp 97.5 F 04/26/19 15:30 Pulse 100 04/26/19 20:45 Resp 16 04/26/19 20:45 BP 103/79 04/26/19 20:45 Pulse Ox 100 04/26/19 20:45 Weight: 59.421 kg - Exam Quality Assessment: Supplemental Oxygen. No: Central Line/PICC, Urinary Catheter General: Alert, Oriented, Cooperative, Moderate Distress HEENT: Conjunctiva Clear, EACs Clear, Hearing Intact, Mucosa Moist & [place], Nares Patent, Normal Nasal Septum, Other (Bi-temporal wasting) Neck: Supple, Trachea Midline. No: +2 Carotid Pulse wo Bruit, Full Range of Motion, Lymphadenopathy, Carotid Bruit Lungs: Decreased Breath Sounds. No: Crackles, Rales, Rhonchi, Wheezing Cardiovascular: Regular Rhythm, Tachycardia. No: Systolic Murmur, Diastolic Murmur, Rubs, Gallop/S3, Gallop/S4 GI/Abdominal Exam: Normal Bowel Sounds, Soft, Non-Tender, No Distention, No Mass. No: Guarding, Rigid, Rebound Back Exam: Normal Inspection Extremities: Normal Inspection, Non-Tender, No Pedal Edema, Other (significant muscle wasting) Neuro Extensive - Mental Status: Alert Psychiatric: Alert - Patient Data Result Diagrams: 04/26/19 16:35 04/26/19 16:35 - Problem List (1) Non-ST elevation (NSTEMI) myocardial infarction SNOMED Code(s): 40939831 ICD Code: I21.4 - NON-ST ELEVATION (NSTEMI) MYOCARDIAL INFARCTION Status: Acute Current Visit: No (2) Tachycardia SNOMED Code(s): 3502791 ICD Code: R00.0 - TACHYCARDIA, UNSPECIFIED Status: Acute Current Visit: Yes (3) COPD (chronic obstructive pulmonary disease) SNOMED Code(s): 29774641 ICD Code: J44.9 - CHRONIC OBSTRUCTIVE PULMONARY DISEASE, UNSPECIFIED Status : Acute Current Visit: Yes (4) COPD exacerbation SNOMED Code(s): 703417082 ICD Code: J44.1 - CHRONIC OBSTRUCTIVE PULMONARY DISEASE W (ACUTE) EXACERBATION Status: Acute Current Visit: Yes (5) Acute on chronic respiratory failure with hypoxia SNOMED Code(s): 24273091, 753709759 ICD Code: J96.21 - ACUTE AND CHRONIC RESPIRATORY FAILURE WITH HYPOXIA Status: Acute Current Visit: Yes (6) Ex-smoker SNOMED Code(s): 3836727 ICD Code: Z87.891 - PERSONAL HISTORY OF NICOTINE DEPENDENCE Status: Acute Current Visit: Yes (7) Alcohol drinking problem SNOMED Code(s): 526594515 ICD Code: Z72.89 - OTHER PROBLEMS RELATED TO LIFESTYLE Status: Acute Current Visit: Yes (8) Leukocytosis SNOMED Code(s): 369478514, 765441898 ICD Code: D72.829 - ELEVATED WHITE BLOOD CELL COUNT, UNSPECIFIED Status: Acute Current Visit: Yes (9) Urinary incontinence SNOMED Code(s): 698102875 ICD Code: R32 - UNSPECIFIED URINARY INCONTINENCE Status: Acute Current Visit: Yes (10) Acute myocardial infarction SNOMED Code(s): 44224690 ICD Code: I21.9 - ACUTE MYOCARDIAL INFARCTION, UNSPECIFIED Status: Acute Current Visit: Yes Qualifiers: Myocardial infarction type: non-ST elevation myocardial infarction Qualified Code(s): I21.4 - Non-ST elevation (NSTEMI) myocardial infarction (11) Elevated troponin SNOMED Code(s): 337385323, 141754266, 301142404 ICD Code: R74.8 - ABNORMAL LEVELS OF OTHER SERUM ENZYMES Status: Acute Current Visit: No (12) Severe malnutrition SNOMED Code(s): 07688879 ICD Code: E43 - UNSPECIFIED SEVERE PROTEIN-CALORIE MALNUTRITION Status: Acute Current Visit: Yes (13) Cachectic SNOMED Code(s): 715967169 ICD Code: R64 - CACHEXIA Status: Acute Current Visit: Yes Problem List Initiated/Reviewed/Updated: Yes Assessment/Plan Comment:: Non-ST elevation (NSTEMI) myocardial infarction Denies previous atherosclerotic history Elevated troponin + CKMB on admission --> suggestive of new ischemic process No changes on repeat EKG Likely type II MN due to hypoxemia ELVER 3, 5% 2 week risk of PLAN - Full dose heparin - Trend troponin q 4h - Telemetry - Lipid panel - PRN NTG - Aspirin + Clopidogrel loading dose and daily dose - Rosuvastatin 40mg QD - HbA1c - Repeat EKG in AM - Lever of care needs to be escalated for angiogram Tachycardia Acute worsening shortness of breath Tachycardic on admission to the ED, 128x' Given diltiazem with minimal change Concern for PE due to sudden onset SOB + tachycardia PLAN - Esmolol load and drip - CTA chest COPD exacerbation COPD, unknown stage Acute on chronic hypoxemic 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 pneumoniae serology - Start Azithromycin x 5 days - PRN BiPAP Alcohol drinking problem Drinks 1-6 beers every day since age 11 Last drink was 4 beers on , approx. 48 hours ago LFTs normal Negative ethanol level in ED PLAN - Thiamine - Folic acid - CIWA protocol Ex-smoker Smoked 2-4ppd from age 11 to 61y/o Quit 12 years ago No outpatient screening has been done No need for Nicotine patch PLAN - Will recommend PCP to perform abdominal US for AAA screen as well as HRCT chest Urinary incontinence No previous work up PLAN - Will recommend PCP to f/u as an outpatient Moderate to Severe malnutrition Pulmonary cachexia BMI 18 Has been hungrier and gaining weight as per patient Albumin normal PLAN - Dietary consult - Nutritional supplements with every meal once PO PROPHYLAXIS DVT- Heparin drip GI- not indicated CODE STATUS: FULL CODE DISPOSITION: Patient will be admitted to ICU for Esmolol drip as well as respiratory monitorization, he will need to be transferred as soon as possible to [place] for Coronary angiogram. Lives alone in house, no pets. Has a family friend come over and help him once a week ( Lety Shipman), and now will be coming more often. Signed up for meals on wheels this week. - Mortality Measure Prognosis:: Poor (baseline performance is very poor)
[2019-04-26] MEDS ORDERED: Azithromycin 500 MG in Sodium Chloride 0.9% 250 ML IV SCH (22:00)
[2019-04-26] MEDS ORDERED: Nitroglycerin 0.4 MG Tab.SL SL PRN (22:35)
[2019-04-26] MEDS ORDERED: Clopidogrel 75 MG Tab PO ONE (22:35)
[2019-04-26] MEDS ORDERED: Aspirin 325 MG Tab.EC PO STA (22:35)
[2019-04-26 22:55] LABS: HEMOGLOBIN A1C 5.6 % (4.50-6.20)
[2019-04-26] MEDS ORDERED: Lactated Ringers 1,000 ML IV SCH (23:45)
[2019-04-27] MEDS ORDERED: Azithromycin 500 MG in Sodium Chloride 0.9% 250 ML IV SCH ×2
[2019-04-27 02:46] VITALS: BP 89/66; PULSE 88
[2019-04-27] MEDS ORDERED: Clopidogrel 75 MG Tab PO ONE (03:00)
[2019-04-27] MEDS ORDERED: Aspirin 325 MG Tab.EC PO ONE (03:00)
[2019-04-27] MEDS ORDERED: Ipratropium 0.02% 0.5 MG/2.5 ML Neb Soln NEB SCH (06:00)
[2019-04-27] MEDS ORDERED: Budesonide 0.5 MG/2 ML Neb Susp NEB SCH (06:00)
[2019-04-27] MEDS ORDERED: Benzonatate 100 MG Cap PO SCH (09:00)
[2019-04-27] MEDS ORDERED: Clopidogrel 75 MG Tab PO SCH (09:00)
[2019-04-27] MEDS ORDERED: guaiFENesin 600 MG Tab.ER PO SCH (09:00)
[2019-04-27] MEDS ORDERED: Aspirin 81 MG Tab.Chew PO SCH (09:00)
[2019-04-27] MEDS ORDERED: Rosuvastatin 10 MG Tab PO SCH (21:00)
--- NOTE | 2019-04-28 09:12 | CR ---
Chest: Portable view of the chest was obtained. Comparison: Prior chest x-ray of 12/17/18. Heart size is normal. Tortuous thoracic aorta is seen. Mild scarring is noted within the right upper chest. Lungs are diffusely hyperinflated compatible with emphysematous change. No acute bony abnormality is seen. Impression: 1. Severe emphysematous change with mild right upper lobe scarring which is stable. 2. Nothing acute is appreciated. Diagnostic code #2 This report was dictated in [place] Standard Time
--- NOTE | 2019-04-28 09:12 | CT ---
CT chest Technique: Multiple axial sections were obtained from above the lung apices inferiorly through the lung bases. Intravenous contrast was utilized. Study has been performed as a pulmonary angiogram protocol. Comparison: Previous chest x-ray performed earlier on the same day. Findings: Pulmonary arteries are well opacified. No filling defects are seen to indicate pulmonary embolism. Aorta shows atherosclerotic calcifications without aneurysm. Mediastinal and hilar regions show no adenopathy or mass. Coronary artery calcification is noted. No pericardial thickening is seen. Diffuse emphysematous change is noted within both lungs. No acute parenchymal change is seen. Slight parenchymal scarring is noted within the right upper lung. No discrete nodule is seen. Slight disc space narrowing is noted within the spine. Minimal anterior wedging is seen within the midthoracic spine which is likely old. Scattered endplate osteophytes are seen within the spine. Impression: 1. Emphysematous change. 2. No findings of pulmonary embolism. 3. Nothing acute is identified. Diagnostic code #3 This report was dictated in [place] Standard Time I agree with preliminary report issued by [facility] ([facility] report finalized on 04/26/19, 9:46 PM Central Time)
--- NOTE | 2019-04-30 09:08 | PCM.DCSUM1 ---
Discharge Summary - Hospital Course HPI Initial Comments: This is a 73 year old male with past medical history of chronic hypoxemic respiratory failure and advanced COPD who comes to the ED complaining of worsening shortness of breath for the past couple of days. As per patient last night he started having shortness of breath when he was in the basement, this resolved mildly when he sat down so he went to bed around 9PM , he slept ok. This morning, he woke up at 7:30 and he was very fatigued, it took him double the time he normally takes to get dressed. He called some friends over to help him change a compressor in his basement, while doing this he started having worsening shortness of breath and was unable to catch his breath. He went to the restroom and had a small BM, after which it took him almost 2 hours to be able to get up from the restroom, when friends brought over a wheelchair to get him in the car and bring him to the ED. He does state he has been requiring more rescue inhaler use than usual. He denies any fevers, chills, changes in sputum production, chest pain, palpitations, edema, PND, orthopnea. - Discharge Data Discharge Date: 04/27/19 Discharge Disposition: DC/Tfer to Acute Hospital 02 Condition: Stable - Referral to Home Health Primary Care Physician: Sarahy Grey MD - Discharge Diagnosis/Problem(s) (1) Non-ST elevation (NSTEMI) myocardial infarction SNOMED Code(s): 07594975 ICD Code: I21.4 - NON-ST ELEVATION (NSTEMI) MYOCARDIAL INFARCTION Status: Acute (2) Tachycardia SNOMED Code(s): 1345022 ICD Code: R00.0 - TACHYCARDIA, UNSPECIFIED Status: Acute (3) COPD (chronic obstructive pulmonary disease) SNOMED Code(s): 50156192 ICD Code: J44.9 - CHRONIC OBSTRUCTIVE PULMONARY DISEASE, UNSPECIFIED Status : Acute (4) COPD exacerbation SNOMED Code(s): 824338807 ICD Code: J44.1 - CHRONIC OBSTRUCTIVE PULMONARY DISEASE W (ACUTE) EXACERBATION Status: Acute (5) Acute on chronic respiratory failure with hypoxia SNOMED Code(s): 03814977, 348897370 ICD Code: J96.21 - ACUTE AND CHRONIC RESPIRATORY FAILURE WITH HYPOXIA Status: Acute (6) Ex-smoker SNOMED Code(s): 7308239 ICD Code: Z87.891 - PERSONAL HISTORY OF NICOTINE DEPENDENCE Status: Acute (7) Alcohol drinking problem SNOMED Code(s): 140107009 ICD Code: Z72.89 - OTHER PROBLEMS RELATED TO LIFESTYLE Status: Acute (8) Leukocytosis SNOMED Code(s): 608804560, 284271858 ICD Code: D72.829 - ELEVATED WHITE BLOOD CELL COUNT, UNSPECIFIED Status: Acute (9) Urinary incontinence SNOMED Code(s): 822945174 ICD Code: R32 - UNSPECIFIED URINARY INCONTINENCE Status: Acute (10) Acute myocardial infarction SNOMED Code(s): 08212489 ICD Code: I21.9 - ACUTE MYOCARDIAL INFARCTION, UNSPECIFIED Status: Acute Qualifiers: Myocardial infarction type: non-ST elevation myocardial infarction Qualified Code(s): I21.4 - Non-ST elevation (NSTEMI) myocardial infarction (11) Elevated troponin SNOMED Code(s): 716412035, 412364486, 024225721 ICD Code: R74.8 - ABNORMAL LEVELS OF OTHER SERUM ENZYMES Status: Acute (12) Severe malnutrition SNOMED Code(s): 59024454 ICD Code: E43 - UNSPECIFIED SEVERE PROTEIN-CALORIE MALNUTRITION Status: Acute (13) Cachectic SNOMED Code(s): 574554583 ICD Code: R64 - CACHEXIA Status: Acute - Discharge Plan *PRESCRIPTION DRUG MONITORING PROGRAM REVIEWED*: Not Applicable *COPY OF PRESCRIPTION DRUG MONITORING REPORT IN PATIENT DARCIE: Not Applicable Home Medications: Home Meds Albuterol [Proventil HFA] 1 puff INH Q4H PRN 01/11/15 [History] Brinzolamide [Azopt 1% Ophth Susp] 1 drop EYEBOTH BID 01/11/15 [History] Travoprost [Travatan Z 0.004% Ophth Soln] 1 drop EYEBOTH BEDTIME 01/11/15 [ History] Brimonidine Tartrate [Brimonidine Tartrate 0.2% Ophth Soln] 1 drop EYEBOTH BID 09/01/15 [History] Umeclidinium Brm/Vilanterol Tr [Anoro Ellipta 62.5-25 Mcg INH] 1 each IH DAILY 09/01/15 [History] Budesonide/Formoterol [Symbicort 160-4.5 MCG] 2 puff INH BID 06/29/18 [History] Forms: ED Department Discharge Referrals: PCP,Unknown [Ordering Only Provider] - - Discharge Summary/Plan Comment DC Time >30 min.: Yes (Coordination of care transfer to [place]) - General Info Date of Service: 04/27/19 Subjective Update: No pain SOB improved - Patient Data Vitals - Most Recent: Last Vital Signs Temp 98.7 F 04/27/19 01:05 Pulse 88 04/27/19 02:00 Resp 12 04/27/19 01:05 BP 89/66 L 04/27/19 02:00 Pulse Ox 97 04/27/19 01:07 Weight - Most Recent: 59.421 kg - Exam Physical Findings Comments:: General: Alert, Oriented, Cooperative, Moderate Distress HEENT: Conjunctiva Clear, EACs Clear, Hearing Intact, Mucosa Moist & [place], Nares Patent, Normal Nasal Septum, Other (Bi-temporal wasting) Neck: Supple, Trachea Midline. No: +2 Carotid Pulse wo Bruit, Full Range of Motion, Lymphadenopathy, Carotid Bruit Lungs: Decreased Breath Sounds. No: Crackles, Rales, Rhonchi, Wheezing Cardiovascular: Regular Rhythm, Tachycardia. No: Systolic Murmur, Diastolic Murmur, Rubs, Gallop/S3, Gallop/S4 GI/Abdominal Exam: Normal Bowel Sounds, Soft, Non-Tender, No Distention, No Mass. No: Guarding, Rigid, Rebound Back Exam: Normal Inspection Extremities: Normal Inspection, Non-Tender, No Pedal Edema, Other (significant muscle wasting) Neuro Extensive - Mental Status: Alert Psychiatric: Alert
== END 2019-04-27 03:40 | DRG 280 ==
LOC: JD.ED 15:17 → JD.ICU 21:21
PROVIDERS: ADMIT Internal Medicine; ATTEND Internal Medicine
DX: I21.4 Non-ST elevation (NSTEMI) myocardial infarction (principal); J43.9 Emphysema, unspecified; J96.21 Acute and chronic respiratory failure with hypoxia; E43 Unspecified severe protein-calorie malnutrition; J44.1 Chronic obstructive pulmonary disease with (acute) exacerbation; Z68.1 Body mass index [BMI] 19.9 or less, adult; H54.7 Unspecified visual loss; H40.9 Unspecified glaucoma; I48.91 Unspecified atrial fibrillation; E78.00 Pure hypercholesterolemia, unspecified; D72.829 Elevated white blood cell count, unspecified; R32 Unspecified urinary incontinence; R79.89 Other specified abnormal findings of blood chemistry; Z79.51 Long term (current) use of inhaled steroids; Z79.899 Other long term (current) drug therapy; Z98.49 Cataract extraction status, unspecified eye; Z87.891 Personal history of nicotine dependence; Z99.81 Dependence on supplemental oxygen
CPT/HCPCS: 36415; 36600; 71045; 71275; 80053; 80061; 80320; 82553; 82803; 83036; 83605; 83735; 83880; 84145; 84484 ×2; 85007; 85027; 85379; 85610; 85730; 86140; 86738; 87804 ×4; 93005 ×2; 94640 ×2; J1644 ×2; J2930; J3010; J3490 ×4; J7030 ×2; J7040; Q9967 ×2; 93010; 94660; 96361; 96365; 96366; 96367; 96375; 96376; 99285; 99285-25; A9270-GY; G0480; J0456; J7050; J7120; J7620-GY

== ENCOUNTER 2019-08-03 00:58 | Inpatient (IN) | payer OTHER, MEDICARE, BC ==
[2019-08-03] MEDS ORDERED: methylPREDNISolone Sodium Succinate 125 MG/2 ML SDV IVPUSH ONE (01:41)
[2019-08-03] MEDS ORDERED: Albuterol/Ipratropium 3.0-0.5 MG/3 ML Neb Soln NEB ONE ×2 (01:42→07:05)
[2019-08-03] MEDS ORDERED: Sodium Chloride 0.9% 1,000 ML IV SCH (01:45)
--- NOTE | 2019-08-03 01:59 | EDM.PDOC ---
ED HPI GENERAL MEDICAL PROBLEM - General Chief Complaint: Respiratory Problem Stated Complaint: SOB Time Seen by Provider: 08/03/19 01:19 Source of Information: Reports: Patient History Limitations: Reports: No Limitations - History of Present Illness INITIAL COMMENTS - FREE TEXT/NARRATIVE: This is a 74-year-old male. He has a history of severe COPD and is O2 dependent. He says on he started having a worsening shortness of breath and difficulty in breathing and he had increase his oxygen to 3 L/min during the day instead of 2 to feel like he was getting enough oxygen. Then yesterday he increased it to 4 L/min in the evening but he still does not feel like he is getting enough air. The patient does not drink fluids and he knows he needs to drink more water and he is very thirsty. He comes to the ER because he is short of breath with a little more effort in breathing and his pulse ox is not as high as it normally is. He denies any cough he denies any congestion. He has had no fever no chills and no nausea or vomiting. - Related Data Allergies Allergy/AdvReac Type Severity Reaction Status Date / Time No Known Allergies Allergy Verified 08/03/19 01:13 Home Meds: Home Meds Albuterol [Proventil HFA] 1 puff INH Q4H PRN 01/11/15 [History] Brinzolamide [Azopt 1% Ophth Susp] 1 drop EYEBOTH BID 01/11/15 [History] Travoprost [Travatan Z 0.004% Ophth Soln] 1 drop EYEBOTH BEDTIME 01/11/15 [ History] Brimonidine Tartrate [Brimonidine Tartrate 0.2% Ophth Soln] 1 drop EYEBOTH BID 09/01/15 [History] Umeclidinium Brm/Vilanterol Tr [Anoro Ellipta 62.5-25 Mcg INH] 1 each IH DAILY 09/01/15 [History] Budesonide/Formoterol [Symbicort 160-4.5 MCG] 2 puff INH BID 06/29/18 [History] Tiotropium Br/Olodaterol HCl [Stiolto Respimat Inhal [place]] 2 spray INH DAILY [History] atorvaSTATin Calcium [Atorvastatin Calcium] 20 mg PO BEDTIME 08/03/19 [History] predniSONE 40 mg PO WITHBREAKFAST #5 tab 08/03/19 [Rx] Past Medical History HEENT History: Reports: Cataract, Glaucoma, Impaired Vision Other HEENT History: detatched retina to R) eye, wears reading glasses.. One of his eye medications or drops were just recently discontinued because of persistent redness of the eye bleeding that he is likely developed an allergy to it. Cardiovascular History: Reports: Afib, High Cholesterol Respiratory History: Reports: COPD Other Respiratory History: emphysema Gastrointestinal History: Reports: Other (See Below) Other Gastrointestinal History: mass on testicle removed - Infectious Disease History Infectious Disease History: Reports: Measles - Past Surgical History HEENT Surgical History: Reports: Cataract Surgery Other HEENT Surgeries/Procedures: sugery to bilateral eyes. Social & Family History - Family History Family Medical History: Noncontributory - Tobacco Use Smoking Status *Q: Former Smoker Used Tobacco, but Quit: Yes Month/Year Tobacco Last Used: 30 years - Caffeine Use Caffeine Use: Reports: None - Recreational Drug Use Recreational Drug Use: Yes - Living Situation & Occupation Living situation: Reports: Occupation: Retired ED ROS GENERAL - Review of Systems Review Of Systems: See Below Constitutional: Denies: Fever, Chills HEENT: Reports: No Symptoms Respiratory: Reports: Shortness of Breath, Other (Severe COPD). Denies: Wheezing, Cough Cardiovascular: Reports: No Symptoms Endocrine: Reports: No Symptoms GI/Abdominal: Reports: No Symptoms : Reports: No Symptoms Musculoskeletal: Reports: Other (The patient is cachectic) Skin: Reports: Other (Very poor skin turgor) Neurological: Reports: No Symptoms Psychiatric: Reports: No Symptoms Hematologic/Lymphatic: Reports: No Symptoms ED EXAM, GENERAL - Physical Exam Exam: See Below Exam Limited By: No Limitations General Appearance: Alert, WD/WN, Anxious, Cachetic Eye Exam: Bilateral Eye: Normal Inspection Ears: Normal External Exam Nose: Normal Inspection Throat/Mouth: Normal Voice, No Airway Compromise, Other (His lips are very dry and scaling, his mucous membranes are tacky) Head: Normocephalic Neck: Supple Respiratory/Chest: Decreased Breath Sounds, Accessory Muscle Use, Prolonged Expiration, Other (Is moving very little air and he has a large barrel chest though he is cachectic, he is a not in acute respiratory distress but he is working at breathing.) Cardiovascular: Regular Rate, Rhythm, No Murmur, Tachycardia GI/Abdominal: Soft Back Exam: Decreased Range of Motion Extremities: Normal Inspection, Normal Range of Motion Neurological: Alert, Oriented Psychiatric: Normal Affect, Normal Mood Skin Exam: Warm, Dry, Other (Poor skin turgor) Course - Vital Signs Last Recorded V/S: Last Vital Signs Temp 97.1 F 08/03/19 01:06 Pulse 116 H 08/03/19 01:06 Resp 19 08/03/19 01:06 BP 144/80 H 08/03/19 01:06 Pulse Ox 94 L 08/03/19 07:17 - Orders/Labs/Meds Orders: Active Orders 24 hr Category Date Time Status Patient Status [ADT] Routine ADT 08/03/19 07:32 Active RT Aerosol Therapy [RC] ASDIRECTED Care 08/03/19 01:42 Active RT Aerosol Therapy [RC] ASDIRECTED Care 08/03/19 07:06 Active CXR [Chest 1V Frontal] [CR] Stat Exams 08/03/19 03:20 Taken Sodium Chloride 0.9% [Normal Saline] 1,000 ml Med 08/03/19 01:45 Active IV ASDIRECTED Medication Orders Sodium Chloride (Normal Saline) 1,000 mls @ 1,000 mls/hr IV ASDIRECTED ALKA Last Admin: 08/03/19 01:49 Dose: 1,000 mls/hr Labs: Laboratory Tests 08/03/19 08/03/19 Range/Units 03:03 03:03 WBC 12.09 H (4.23-9.07) K/mm3 RBC 5.17 (4.63-6.08) M/mm3 Hgb 16.1 (13.7-17.5) gm/dl Hct 46.9 (40.1-51.0) % MCV 90.7 D (79.0-92.2) fl MCH 31.1 (25.7-32.2) pg MCHC 34.3 (32.2-35.5) g/dl RDW Std Deviation 43.8 (35.1-43.9) fL Plt Count 210 (163-337) K/mm3 MPV 10.2 (9.4-12.3) fl Neut % (Auto) 83.2 H (34.0-67.9) % Lymph % (Auto) 7.9 L (21.8-53.1) % [place] % (Auto) 8.6 (5.3-12.2) % Eos % (Auto) 0.2 L (0.8-7.0) Baso % (Auto) 0.1 (0.1-1.2) % Neut # (Auto) 10.07 H (1.78-5.38) K/mm3 Lymph # (Auto) 0.95 L (1.32-3.57) K/mm3 [place] # (Auto) 1.04 H (0.30-0.82) K/mm3 Eos # (Auto) 0.02 L (0.04-0.54) K/mm3 Baso # (Auto) 0.01 (0.01-0.08) K/mm3 Manual Slide Review Normal smear Sodium 144 (136-145) mEq/L Potassium 5.5 H (3.5-5.1) mEq/L Chloride 103 (98-107) mEq/L Carbon Dioxide 28 (21-32) mEq/L Anion Gap 18.5 H (5-15) BUN 22 H (7-18) mg/dL Creatinine 1.1 (0.7-1.3) mg/dL Est Cr Clr Drug Dosing TNP Estimated GFR (MDRD) > 60 (>60) mL/min BUN/Creatinine Ratio 20.0 H (14-18) Glucose 114 (83-115) mg/dL Calcium 9.6 (8.5-10.1) mg/dL Total Bilirubin 0.5 (0.2-1.0) mg/dL AST 71 H (15-37) U/L ALT 49 (16-63) U/L Alkaline Phosphatase 75 (46-116) U/L Total Protein 7.4 (6.4-8.2) g/dl Albumin 3.9 (3.4-5.0) g/dl Globulin 3.5 gm/dL Albumin/Globulin Ratio 1.1 (1-2) Meds: Medications Generic Name Dose Route Start Last Admin Trade Name Freq PRN Reason Stop Dose Admin Sodium Chloride 1,000 mls @ 1,000 mls/hr 08/03/19 01:45 08/03/19 01:49 Normal Saline IV 1,000 mls/hr ASDIRECTED ALKA Administration Discontinued Medications Generic Name Dose Route Start Last Admin Trade Name [place] PRN Reason Stop Dose Admin Albuterol/Ipratropium 3 ml 08/03/19 01:42 08/03/19 03:02 Duoneb 3.0-0.5 Mg/3 Ml NEB 08/03/19 01:43 3 ml ONETIME ONE Administration Albuterol/Ipratropium 3 ml 08/03/19 07:05 08/03/19 07:17 Duoneb 3.0-0.5 Mg/3 Ml NEB 08/03/19 07:06 3 ml ONETIME ONE Administration Sodium Chloride 1,000 mls @ 1,000 mls/hr 08/03/19 04:12 08/03/19 04:27 Normal Saline IV 08/03/19 05:11 1,000 mls/hr ONETIME ONE Administration Methylprednisolone Sodium Succinate 125 mg 08/03/19 01:41 08/03/19 01:49 Solu-Medrol IVPUSH 08/03/19 01:42 125 mg ONETIME ONE Administration - Radiology Interpretation Free Text/Narrative:: Chest x-ray shows severe COPD changes but no acute infiltrates - Re-Assessments/Exams Free Text/Narrative Re-Assessment/Exam: 08/03/19 06:45 After the 2 L of fluids the patient states he is feeling a much better. His oxygen was able to be cut down to 3 L/min and his pulse ox on his ear showed 98% . He is wanting to go home. He does need to follow-up with his doctor this week for recheck and I have encouraged him to continue to drink lots of fluids. 08/03/19 07:09 When we attempted to get the patient up and dressed he became extremely short of breath and had to sit on the edge of the bed in tripod position in order to breathe appropriately his pulse ox dipped as well and I do not believe he is going to be able to go home. We do have a single bed that he can occupy. I will speak to Dr. Lawrence regarding the patient and his admission. Departure - Departure Time of Disposition: 06:45 Disposition: Refer to Observation Condition: Poor Clinical Impression: Acute exacerbation of chronic obstructive pulmonary disease (COPD), Dehydration , Hypoxemia - Discharge Information *PRESCRIPTION DRUG MONITORING PROGRAM REVIEWED*: Not Applicable *COPY OF PRESCRIPTION DRUG MONITORING REPORT IN PATIENT DARCIE: Not Applicable Sepsis Event Note - Evaluation Sepsis Screening Result: No Definite Risk - Focused Exam Vital Signs: Vital Signs Temp Pulse Resp BP Pulse Ox Pulse Ox 08/03/19 07:17 94 L 08/03/19 03:02 100 08/03/19 01:06 97.1 F 116 H 19 144/80 H 96 Date Exam was Performed: 08/03/19 Time Exam was Performed: 08:09 ED Communication - ED Communication Date/Time Date: 08/03/19 Time Called: 07:35 - Discussed Case With (1) Discussed Case With (1): Admitting Provider Person/s Notified (1): Amanda Hernandez (She agrees to admit the patient for further evaluation and treatment) - My Orders Last 24 Hours: My Active Orders 08/03/19 01:42 RT Aerosol Therapy [RC] ASDIRECTED 08/03/19 01:45 Sodium Chloride 0.9% [Normal Saline] 1,000 ml IV ASDIRECTED 08/03/19 03:20 CXR [Chest 1V Frontal] [CR] Stat 08/03/19 07:06 RT Aerosol Therapy [RC] ASDIRECTED 08/03/19 07:32 Patient Status [ADT] Routine - Assessment/Plan Last 24 Hours: My Active Orders 08/03/19 01:42 RT Aerosol Therapy [RC] ASDIRECTED 08/03/19 01:45 Sodium Chloride 0.9% [Normal Saline] 1,000 ml IV ASDIRECTED 08/03/19 03:20 CXR [Chest 1V Frontal] [CR] Stat 08/03/19 07:06 RT Aerosol Therapy [RC] ASDIRECTED 08/03/19 07:32 Patient Status [ADT] Routine
[2019-08-03] MEDS ORDERED: Sodium Chloride 0.9% 1,000 ML IV ONE (04:12)
[2019-08-03] MEDS ORDERED: Acetaminophen 325 MG Tab PO PRN (08:43)
[2019-08-03] MEDS ORDERED: Ondansetron 4 MG/2 ML SDV IV PRN (08:43)
[2019-08-03] MEDS ORDERED: Ondansetron 4 MG Tab.DIS PO PRN (08:43)
--- NOTE | 2019-08-03 08:50 | PCM.HP.2 ---
H&P History of Present Illness - General Date of Service: 08/03/19 Admit Problem/Dx: Admission Diagnosis/Problem Admission Diagnosis/Problem Chronic obstructive pulmonary disease with acute exacerbation - History of Present Illness Initial Comments - Free Text/Narative: This is a 74 year old male with past medical history of severe COPD who comes to the ED complaining of worsening shortness of breath for 4 days but significantly worsened in the past 2 days. As per patient he gauges his disease activity with how long it takes him to get dressed, normally its 20 minutes and recently has needed up to 1-1:30 hours He states he has needed to increase his home O2 from 2L at rest to 4L Denies any worsening cough, sputum , fever, chills, chest pain, pleuritic chest pain, palpitations, near syncope Endorses 4lb weight loss in the past couple of days due to decreased appetite Once he noticed he wasn't getting better and yesterday was unable to even get out of bed he decided to come in for further evaluation Of note patient states that he checks his O2 sats frequently at home which normally ranges 95-96% however during the night he drops to 82-84% - Related Data Allergies/Adverse Reactions: Allergies Allergy/AdvReac Type Severity Reaction Status Date / Time No Known Allergies Allergy Verified 08/03/19 01:13 Home Medications: Home Meds Albuterol [Proventil HFA] 1 puff INH Q4H PRN 01/11/15 [History] Brimonidine Tartrate [Brimonidine Tartrate 0.2% Ophth Soln] 1 drop EYERT BID 11/10 [History] Budesonide/Formoterol [Symbicort 160-4.5 MCG] 2 puff INH BID 06/29/18 [History] Aspirin [Adult Low Dose Aspirin EC] 1 tab PO BEDTIME 08/03/19 [History] Cholecalciferol (Vitamin D3) [Vitamin D3] 1 cap PO DAILY 08/03/19 [History] Dorzolamide HCl/Pf [Dorzolamide 2% Eye Drop] 1 drop EYERT BID 08/03/19 [History] Latanoprost/Pf [Latanoprost 0.005% Eye Drop] 1 drop EYERT BEDTIME 08/03/19 [ History] Thiamine HCl [Vitamin B-1] 1 tab PO DAILY 08/03/19 [History] Tiotropium Br/Olodaterol HCl [Stiolto Respimat Inhal [place]] 2 spray INH DAILY [History] atorvaSTATin Calcium [Atorvastatin Calcium] 20 mg PO BEDTIME 08/03/19 [History] predniSONE 40 mg PO WITHBREAKFAST #5 tab 08/03/19 [Rx] Past Medical History HEENT History: Reports: Cataract, Glaucoma, Impaired Vision Other HEENT History: detatched retina to R) eye, wears reading glasses.. One of his eye medications or drops were just recently discontinued because of persistent redness of the eye bleeding that he is likely developed an allergy to it. Cardiovascular History: Reports: High Cholesterol Respiratory History: Reports: COPD Other Respiratory History: emphysema Gastrointestinal History: Reports: Other (See Below) Other Gastrointestinal History: mass on testicle removed - Infectious Disease History Infectious Disease History: Reports: Measles - Past Surgical History HEENT Surgical History: Reports: Cataract Surgery Other HEENT Surgeries/Procedures: sugery to bilateral eyes. Social & Family History - Family History Family Medical History: Noncontributory - Tobacco Use Smoking Status *Q: Former Smoker Used Tobacco, but Quit: Yes Month/Year Tobacco Last Used: 30 years - Caffeine Use Caffeine Use: Reports: None - Recreational Drug Use Recreational Drug Use: Yes - Living Situation & Occupation Living situation: Reports: Occupation: Retired H&P Review of Systems - Review of Systems: Review Of Systems: See Below General: Reports: Malaise, Weakness, Fatigue, Decreased Appetite, Weight Loss. Denies: Fever, Chills, Night Sweats, Diaphoresis, Weight Gain HEENT: Reports: Glasses. Denies: Ear Pain, Eye Pain, Headaches, Hearing Changes , Rhinitis, Post Nasal Drip, Sinus Congestion, Sore Throat Pulmonary: Reports: Shortness of Breath, Wheezing, Cough, Sputum. Denies: Pleuritic Chest Pain, Hemoptysis Cardiovascular: Reports: Dyspnea on Exertion, Syncope, Claudication. Denies: Chest Pain, Palpitations, Orthopnea, PND, Edema, Lightheadedness Gastrointestinal: Reports: Anorexia, Decreased Appetite. Denies: Abdominal Pain , Black Stool, Bloody Stool, Constipation, Diarrhea, Nausea, Vomiting Genitourinary: Denies: Dysuria, Frequency, Burning, Pain, Urgency, Incontinence Musculoskeletal: Denies: Joint Pain, Joint Swelling, Muscle Pain, Muscle Stiffness Skin: Reports: Dryness. Denies: Cyanosis, Jaundice, Mottled, Pallor, Diaphoresis Psychiatric: Denies: Confusion, Depression, Mood Lability, Anxiety Neurological: Denies: Confusion, Dizziness, Headache, Numbness, Paresthesia Exam - Exam Exam: See Below - Vital Signs Vital Signs: Last Vital Signs Temp 97.1 F 08/03/19 01:06 Pulse 116 H 08/03/19 01:06 Resp 19 08/03/19 01:06 BP 144/80 H 08/03/19 01:06 Pulse Ox 94 L 08/03/19 07:17 Weight: 59.874 kg - Exam Quality Assessment: Supplemental Oxygen General: Alert, Oriented, Cooperative, Moderate Distress HEENT: Conjunctiva Clear, EACs Clear, Hearing Intact, Nares Patent, Normal Nasal Septum. No: Mucosa Moist & [place] Neck: Supple, Trachea Midline, Full Range of Motion. No: Lymphadenopathy Lungs: Decreased Breath Sounds. No: Crackles, Rales, Rhonchi, Rub, Stridor, Wheezing Cardiovascular: Regular Rate, Regular Rhythm. No: Systolic Murmur, Diastolic Murmur, Rubs, Gallop/S3, Gallop/S4 GI/Abdominal Exam: Normal Bowel Sounds, Soft, No Organomegaly. No: Distended, Guarding, Rigid, Rebound, Tender Back Exam: Normal Inspection. No: CVA Tenderness (L), CVA Tenderness (R), Paraspinal Tenderness, Vertebral Tenderness Extremities: Normal Inspection Skin: Dry, Cool Neuro Extensive - Mental Status: Alert, Oriented x3 Psychiatric: Normal Affect, Normal Mood - Patient Data Result Diagrams: 08/03/19 03:03 08/03/19 03:03 Sepsis Event Note - Evaluation Sepsis Screening Result: No Definite Risk Current Stage of Sepsis: Sepsis Possible Source of Sepsis: Pulmonary - Focused Exam Sepsis Event Note Statement: Focused Sepsis Exam Completed Vital Signs: Vital Signs Temp Pulse Resp BP Pulse Ox Pulse Ox 08/03/19 07:17 94 L 08/03/19 03:02 100 08/03/19 01:06 97.1 F 116 H 19 144/80 H 96 Respiratory Effort Without Exertion: Dyspneic, Hyperpnea, Labored Heart Sounds: Distant Capillary Refill, Detail: Greater than (>) 2 Seconds Pulse Description: 1+ [place] Peripheral Pulse Location: Radial Skin Exam (Focused Sepsis): Pale Date Exam was Performed: 08/03/19 Time Exam was Performed: 09:59 (time of code sepsis- 9:58) - Bedside Monitoring Fluid Bolus Goal: [place] body weight ([place]) = 74.8 Bolus = 2,244 Date Bedside Monitoring was Performed: 08/03/19 Time Bedside Monitoring was Performed: 09:59 - Problem List (1) COPD exacerbation SNOMED Code(s): 807065438 ICD Code: J44.1 - CHRONIC OBSTRUCTIVE PULMONARY DISEASE W (ACUTE) EXACERBATION Status: Acute Current Visit: Yes (2) Pulmonary cachexia due to chronic obstructive pulmonary disease SNOMED Code(s): 003297878 ICD Code: J44.9 - CHRONIC OBSTRUCTIVE PULMONARY DISEASE, UNSPECIFIED; R64 - CACHEXIA Status: Acute Current Visit: Yes (3) Daily consumption of alcohol SNOMED Code(s): 629379762 ICD Code: Z78.9 - OTHER SPECIFIED HEALTH STATUS Status: Acute Current Visit: Yes (4) Volume depletion SNOMED Code(s): 83260494 ICD Code: E86.9 - VOLUME DEPLETION, UNSPECIFIED Status: Acute Current Visit: Yes (5) Hyperkalemia SNOMED Code(s): 54942916 ICD Code: E87.5 - HYPERKALEMIA Status: Acute Current Visit: Yes (6) Ex-smoker SNOMED Code(s): 7367281 ICD Code: Z87.891 - PERSONAL HISTORY OF NICOTINE DEPENDENCE Status: Acute Current Visit: No (7) Leukocytosis SNOMED Code(s): 672230032, 825531369 ICD Code: D72.829 - ELEVATED WHITE BLOOD CELL COUNT, UNSPECIFIED Status: Acute Current Visit: No (8) Severe malnutrition SNOMED Code(s): 94081294 ICD Code: E43 - UNSPECIFIED SEVERE PROTEIN-CALORIE MALNUTRITION Status: Acute Current Visit: No (9) Advanced COPD SNOMED Code(s): 83608436 ICD Code: J44.9 - CHRONIC OBSTRUCTIVE PULMONARY DISEASE, UNSPECIFIED Status : Acute Current Visit: Yes (10) Acute on chronic respiratory failure with hypoxemia SNOMED Code(s): 30254297767095205 ICD Code: J96.21 - ACUTE AND CHRONIC RESPIRATORY FAILURE WITH HYPOXIA Status: Acute Current Visit: Yes Problem List Initiated/Reviewed/Updated: Yes Assessment/Plan Comment:: COPD exacerbation in the setting of advanced COPD Acute on chronic respiratory failure with hypoxemia Pulmonary cachexia due to chronic obstructive pulmonary disease Leukocytosis, neutrophilia Ex-smoker Worsening shortness of breath in the past 2 days Attempted increasing his nasal cannula rate and nebulizations, which he was doing at least twice a day with minimal change Lost 4 lbs since he started feeling sick States he is too weak to ambulate, yesterday was unable to get out of bed Received flu and pneumonia shot x 2 Used to smoke 2-4ppd since age 11 until 16 yrs ago On Symbicort, Anoro Ellipta and Stiolto + as needed albuterol at home PLAN - Solumedrol 60 mg IV BID - DuoNebs Q2h for today - Budesonide BID - Daily Azithromycin - Scheduled guaifenesin and codeine syrup - Nasal cannula to keep O2say >88% - RT assess and treat - Hold home inhalers Daily consumption of alcohol Drinks at least 1 beer/day, but sometimes up to 5 Last drink was 2 days ago PLAN - Alcohol cessation counseling - Monitor closely for withdrawal Volume depletion Hyperkalemia BP on admission 144/80 with HR 116 K 5.5 PLAN - EKG - Orthostatic VS Severe malnutrition Obvious muscle wasting BMI, 17.9 Albumin 3.9 PLAN - Dietary consult - Prealbumin level - B12 level - Vitamin D level - Folic acid level PROPHYLAXIS DVT- Lovenox GI- not indicated CODE STATUS: DNR/DNI DISPOSITION: Patient will be admitted for scheduled nebulizations and O2 supplementation as well as IV steroids and azithromycin. LOS 2-3 days SOCIAL ISSUES: Is a Lives alone in a house in [place] Has 2 friends come in and help him out at home with some ADLs at least 4/week Has a nebulizer at home as well as O2 - Mortality Measure Prognosis:: Poor (Poor performance status + cachexia)
[2019-08-03] MEDS: Lactated Ringers 1,000 ML IV SCH ×2 (09:10→19:02)
[2019-08-03] MEDS ORDERED: Azithromycin 500 MG in Sodium Chloride 0.9% 250 ML IV SCH (10:00)
[2019-08-03] MEDS: guaiFENesin 600 MG Tab.ER PO SCH ×2 (10:03→20:45)
[2019-08-03] MEDS: Enoxaparin 40 MG/0.4 ML Syringe SUBCUT SCH (10:03)
[2019-08-03] MEDS: methylPREDNISolone Sodium Succinate 40 MG/1 ML SDV IV SCH ×2 (10:03→20:45)
[2019-08-03] MEDS: Codeine/guaiFENesin 10-100 MG/5 ML Syrup 5 ML Cup PO SCH ×3 (10:03→20:44)
[2019-08-03] MEDS: Benzonatate 100 MG Cap PO SCH ×3 (10:03→20:45)
[2019-08-03] MEDS: Levofloxacin/Dextrose 5%-Water 750 MG in Premix Bag 1 BAG IV SCH (11:20)
[2019-08-03] MEDS: Albuterol/Ipratropium 3.0-0.5 MG/3 ML Neb Soln NEB SCH ×6 (11:38→21:42)
[2019-08-03] MEDS ORDERED: Albuterol/Ipratropium 3.0-0.5 MG/3 ML Neb Soln ONE (11:44)
[2019-08-03] MEDS ORDERED: Piperacillin/Tazobactam 4.5 GM in Sodium Chloride 0.9% 100 ML IV ONE (12:00)
[2019-08-03] MEDS ORDERED: Calcium Gluconate 10% 1 GM/10 ML SDV IVPUSH ONE (12:03)
[2019-08-03] MEDS ORDERED: 50% Dextrose in Water 50 ML Syringe IVPUSH ONE (12:03)
[2019-08-03] MEDS ORDERED: Calcium Gluconate 1 GM in Sodium Chloride 0.9% 100 ML IV ONE (13:45)
--- NOTE | 2019-08-03 13:51 | CR ---
Chest: Portable view of the chest was obtained. Comparison: Prior chest x-ray of 04/26/19. Heart size is normal. Mild tortuosity of the thoracic aorta is seen. Lungs show no acute parenchymal change. Lungs are hyperinflated compatible with emphysematous change. Minimal scoliosis is noted within the spine. No acute osseous finding is appreciated. Impression: 1. Emphysematous change. 2. Nothing acute is appreciated on portable chest x-ray. Diagnostic code #2 This report was dictated in [place] Standard Time
[2019-08-03] MEDS ORDERED: Insulin Lispro 100 Units/ML 3 ML Vial ONE (14:26)
[2019-08-03] MEDS ORDERED: Insulin Lispro 100 Units/ML 3 ML Vial SCH (16:00)
[2019-08-03] MEDS ORDERED: Albuterol 0.083% 2.5 MG/3 ML Neb Soln NEB PRN (19:01)
[2019-08-03] MEDS ORDERED: Lactated Ringers 1,000 ML IV ONE (19:35)
[2019-08-03] MEDS ORDERED: Lactated Ringers 1,000 ML IV SCH ×3 (19:45→22:45)
[2019-08-03] MEDS: Piperacillin/Tazobactam 4.5 GM in Sodium Chloride 0.9% 100 ML IV SCH (20:42)
[2019-08-03] MEDS: DORZOLAMIDE 2% EYERT SCH (20:46)
[2019-08-03] MEDS: LATANOPROST 0.005% EYERT SCH (20:49)
[2019-08-03] MEDS ORDERED: Aspirin 81 MG Tab.EC**OWN MED PO SCH (21:00)
[2019-08-03] MEDS ORDERED: ATORVASTATIN CALCIUM 40 MG PO SCH (21:00)
[2019-08-03] MEDS: Budesonide 0.5 MG/2 ML Neb Susp NEB SCH (21:42)
[2019-08-04] MEDS: Codeine/guaiFENesin 10-100 MG/5 ML Syrup 5 ML Cup PO SCH ×4 (02:19→20:18)
[2019-08-04] MEDS: Albuterol/Ipratropium 3.0-0.5 MG/3 ML Neb Soln NEB SCH ×5 (03:04→17:07)
[2019-08-04] MEDS: Piperacillin/Tazobactam 4.5 GM in Sodium Chloride 0.9% 100 ML IV SCH ×3 (03:17→20:16)
[2019-08-04] MEDS: Budesonide 0.5 MG/2 ML Neb Susp NEB SCH ×2 (06:30→21:21)
[2019-08-04] MEDS: Enoxaparin 40 MG/0.4 ML Syringe SUBCUT SCH (09:27)
[2019-08-04] MEDS: methylPREDNISolone Sodium Succinate 40 MG/1 ML SDV IV SCH (09:27)
[2019-08-04] MEDS: Thiamine 100 MG Tab PO SCH (09:29)
[2019-08-04] MEDS: Benzonatate 100 MG Cap PO SCH ×3 (09:29→20:18)
[2019-08-04] MEDS: guaiFENesin 600 MG Tab.ER PO SCH ×2 (09:29→20:18)
[2019-08-04] MEDS: DORZOLAMIDE 2% EYERT SCH ×2 (09:29→20:18)
[2019-08-04] MEDS: Levofloxacin/Dextrose 5%-Water 750 MG in Premix Bag 1 BAG IV SCH (09:43)
[2019-08-04] MEDS ORDERED: Lactated Ringers 1,000 ML IV SCH (10:00)
[2019-08-04] MEDS: Brimonidine 0.2% Ophth Soln 15 ML Bottle EYERT SCH ×2 (10:48→20:18)
[2019-08-04] MEDS: Lactated Ringers 1,000 ML IV SCH ×2 (13:44→20:16)
--- NOTE | 2019-08-04 14:06 | PCM.PN ---
- General Info Date of Service: 08/04/19 Subjective Update: BM 08/01 Tolerating diet Slept OK - Patient Data Vitals - Most Recent: Last Vital Signs Temp 97.5 F 08/04/19 08:29 Pulse 119 H 08/04/19 11:07 Resp 16 08/04/19 08:29 BP 110/61 08/04/19 08:29 Pulse Ox 91 L 08/04/19 13:37 Weight - Most Recent: 58.967 kg - Exam Quality Assessment: Supplemental Oxygen General: Alert, Oriented, Moderate Distress HEENT: Pupils Equal, Pupils Reactive, EOMI, Mucous Membr. Moist/[place] Ne[place]: Supple, Trachea Midline, No Thyromegaly, +2 Carotid Pulse wo Bruit, Lymphadenopathy Lungs: Decreased Breath Sounds, Crackles, Wheezing. No: Rales, Rhonchi, Rub Cardiovascular: Tachycardia. No: Murmurs, Gallops, Rubs GI/Abdominal Exam: Normal Bowel Sounds, Soft. No: Distended, Guarding, Rigid, Rebound, Tender Back Exam: Normal Inspection. No: CVA Tenderness (L), CVA Tenderness (R), Paraspinal Tenderness, Vertebral Tenderness Extremities: Normal Inspection, Normal Range of Motion, No Pedal Edema, Slow Capillary Refill Neurological: No New Focal Deficit Sepsis Event Note - Evaluation Sepsis Screening Result: Sepsis Risk - Focused Exam Vital Signs: Vital Signs Temp Pulse Resp BP Pulse Ox Pulse Ox Pulse Ox 08/04/19 13:37 91 L 08/04/19 12:00 98 08/04/19 11:07 119 H 98 08/04/19 09:10 98 08/04/19 08:29 97.5 F 114 H 16 110/61 99 08/04/19 08:00 99 08/04/19 06:30 93 L 08/04/19 06:07 140 H 93 L 08/04/19 05:33 151 H 86 L 08/04/19 04:55 108 H 20 108/55 L 100 08/04/19 03:05 100 08/04/19 02:17 114 H 20 100 Date Exam was Performed: 08/10/19 Time Exam was Performed: 16:22 - Problem List & Annotations (1) COPD exacerbation SNOMED Code(s): 692854193 Code(s): J44.1 - CHRONIC OBSTRUCTIVE PULMONARY DISEASE W (ACUTE) EXACERBATION Status: Acute Current Visit: Yes (2) Pulmonary cachexia due to chronic obstructive pulmonary disease SNOMED Code(s): 917005086 Code(s): J44.9 - CHRONIC OBSTRUCTIVE PULMONARY DISEASE, UNSPECIFIED; R64 - [place] Status: Acute Current Visit: Yes (3) Daily consumption of alcohol SNOMED Code(s): 183519087 Code(s): Z78.9 - OTHER SPECIFIED HEALTH STATUS Status: Acute Current Visit: Yes (4) Volume depletion SNOMED Code(s): 27757331 Code(s): E86.9 - VOLUME DEPLETION, UNSPECIFIED Status: Acute Current Visit: Yes (5) Hyperkalemia SNOMED Code(s): 69950354 Code(s): E87.5 - HYPERKALEMIA Status: Acute Current Visit: Yes (6) Ex-smoker SNOMED Code(s): 4981297 Code(s): Z87.891 - PERSONAL HISTORY OF NICOTINE DEPENDENCE Status: Acute Current Visit: No (7) Leukocytosis SNOMED Code(s): 912163966, 542114717 Code(s): D72.829 - ELEVATED WHITE BLOOD CELL COUNT, UNSPECIFIED Status: Acute Current Visit: No (8) Severe malnutrition SNOMED Code(s): 23298080 Code(s): E43 - UNSPECIFIED SEVERE PROTEIN-CALORIE MALNUTRITION Status: Acute Current Visit: No (9) Advanced COPD SNOMED Code(s): 08926425 Code(s): J44.9 - CHRONIC OBSTRUCTIVE PULMONARY DISEASE, UNSPECIFIED Status : Acute Current Visit: Yes (10) Acute on chronic respiratory failure with hypoxemia SNOMED Code(s): 61974275189967394 Code(s): J96.21 - ACUTE AND CHRONIC RESPIRATORY FAILURE WITH HYPOXIA Status : Acute Current Visit: Yes (11) Pneumonia SNOMED Code(s): 794491998 Code(s): J18.9 - PNEUMONIA, UNSPECIFIED ORGANISM Status: Acute Current Visit: Yes - Problem List Review Problem List Initiated/Reviewed/Updated: Yes - Plan Plan:: ASSESSMENT DOA - Worsening SOB x 2 days - Attempted increasing NC rate and nebulization frequency - Unable to ambulate - Admitted on Solumedrol 60mg IV BID, DuoNebs q2h, Budesonide BID, guaifenesin and codeine and Azithromycin - Lactic acid trended up for approximately 10 hours and responded to fluid boluses - Code sepsis code, started on Zosyn, Vancomycin and Levaquin - Hyperkalemia, 5.5, with peak T waves - Insulin, D50 and DuoNeb Day 1 - PaO2 up from 75 to 90 - Peak T waves resolved and K down to 4.2 - Flu swab negative - MRSA negative --> Vancomycin discontinued - Placed on BiPAP in AM - Changed to inpatient - Increased Solumedrol to 60 TID - BP trend 106-140/69-95 - HR trend 108-129 - Tmax 98.2 Pneumonia COPD exacerbation in the setting of advanced COPD Acute on chronic respiratory failure with hypoxemia Pulmonary cachexia due to chronic obstructive pulmonary disease Leukocytosis, neutrophilia Ex-smoker PLAN - Solumedrol 60 mg IV TID - DuoNebs Q4h - Budesonide BID - Levaquin and Zosyn day 2 - Discontinue Vancomycin - Scheduled guaifenesin and codeine syrup and Tessalon Perles - Nasal cannula to keep O2say >88% - RT assess and treat - Hold home inhalers Daily consumption of alcohol Drinks at least 1 beer/day, but sometimes up to 5 Last drink was 2 days ago PLAN - Alcohol cessation counseling - Monitor closely for withdrawal Severe malnutrition Obvious muscle wasting BMI, 17.9 Albumin 3.9 PLAN - Dietary consult - Prealbumin level - B12 level - Vitamin D level - Folic acid level Volume depletion, resolved Hyperkalemia, resolved PROPHYLAXIS DVT- Lovenox GI- not indicated CODE STATUS: DNR/DNI DISPOSITION: Patient will remain admitted, transitioned to inpatient. SOCIAL ISSUES: Is a Lives alone in a house in [place] Has 2 friends come in and help him out at home with some ADLs at least 4/week Has a nebulizer at home as well as O2
[2019-08-04] MEDS: methylPREDNISolone Sodium Succinate 40 MG/1 ML SDV IVPUSH SCH ×2 (16:10→20:19)
[2019-08-04] MEDS ORDERED: Labetalol 100 MG/20 ML MDV IVPUSH PRN (20:07)
--- NOTE | 2019-08-04 20:09 | CT ---
Head CT Technique: Multiple axial sections through the brain were obtained. Intravenous contrast was not utilized. Comparison: No prior intracranial imaging is available. Findings: Motion artifact is seen. This somewhat limits details of the exam. Ventricles along with basal cisterns and sulci over the convexities are mildly prominent. No abnormal parenchymal densities are appreciated. No evidence of intracranial hemorrhage. No midline shift or mass-effect is seen. Bone window settings were reviewed. Retention cyst is noted within the right maxillary sinus measuring about 1.6 cm. Focal soft tissue density is seen posteriorly within the nasal cavity possibly due to polyps. Mild mucosal thickening is noted within the ethmoid sinuses. No air-fluid level seen within the paranasal sinuses. No acute calvarial abnormality is appreciated. Mastoid sinus on the right side shows minimal mucosal thickening. Impression: 1. Retention cyst with the right maxillary sinus as well as possible nasal polyps. Other sinus findings believed to be incidental. 2. Motion artifact limiting details. Within this limitation, nothing acute is appreciated on noncontrast head CT exam. Diagnostic code #2 This report was dictated in [place] Standard Time
--- NOTE | 2019-08-04 20:15 | PCM.SN ---
- Free Text/Narrative Note: Rapid Response - Upon arrival to patient's room he was face down on the bathroom floor with some blood next to his face - He was turned around and was visibly cyanotic and appeared not to be breathing - Pulse was checked and present - There was a erythematous lesion over left maxillary surface - Patient was placed on bed sheet and lifted onto bed and placed on BiPAP - EKG was performed and showed sinus tachycardia - Cardiac enzymes, BMP, magnesium and phosphate as well as ABGs were drawn - Ordered for fluids to be run wide open - Patient's hands were shaking but he appeared to be listening to what I was saying with small nods in response - BP was checked and he was found to be hypertensive for which IVF rate was dropped back down - A laceration was also found on medial surface of left arm - Pupils were dilated for which CT head war ordered - Patient was taken to CT and transferred to ICU - Wound in arm was cleaned and bleeding was stopped with Dermabond Please refer to nursing notes for specific times and further interventions
[2019-08-04] MEDS: Simvastatin 20 MG Tab PO SCH (20:18)
[2019-08-04] MEDS: Aspirin 81 MG Tab.EC PO SCH (20:18)
[2019-08-04] MEDS: LATANOPROST 0.005% EYERT SCH (20:19)
[2019-08-04] MEDS ORDERED: Levalbuterol HCl 1.25 MG/3 ML Neb NEB PRN (20:25)
[2019-08-04] MEDS ORDERED: Sodium Chloride 0.9% 10 ML Syringe FLUSH PRN (20:37)
[2019-08-04] MEDS ORDERED: Iopamidol 612 MG/ML 100 ML Bottle IVPUSH ONE (20:37)
[2019-08-04] MEDS ORDERED: Sodium Chloride 0.9% 45 ML IV SCH (20:45)
[2019-08-04] MEDS: Levalbuterol HCl 1.25 MG/3 ML Neb NEB SCH (21:28)
[2019-08-05] MEDS: Codeine/guaiFENesin 10-100 MG/5 ML Syrup 5 ML Cup PO SCH ×4 (02:14→20:07)
[2019-08-05] MEDS: Levalbuterol HCl 1.25 MG/3 ML Neb NEB SCH ×6 (02:28→21:12)
[2019-08-05] MEDS: Piperacillin/Tazobactam 4.5 GM in Sodium Chloride 0.9% 100 ML IV SCH ×3 (03:58→20:06)
[2019-08-05 04:46] LABS: BORDETELLA PARAPERT IS1001 Not Detected (Not Detected)
--- NOTE | 2019-08-05 04:58 | CT ---
CT chest Technique: Multiple axial sections through the chest were obtained. Intravenous contrast was utilized. Study performed as pulmonary angiogram protocol. Findings: Pulmonary arteries are well opacified. No filling defects are seen to indicate pulmonary embolism. Aorta shows atherosclerotic calcification with no aneurysm. Small mediastinal lymph nodes are seen believed to be within normal limits. Coronary artery calcification is seen. Diffuse and severe emphysematous changes seen throughout both lungs. No acute parenchymal change is appreciated within either lung. No discrete nodule is seen. No pleural effusions are noted. Bone window settings were reviewed which shows degenerative change within the spine. No acute osseous finding is appreciated. Impression: 1. No findings of pulmonary embolism. 2. Diffuse and severe emphysematous change. 3. Nothing acute is definitely appreciated on CT study of the chest. Diagnostic code #3 This report was dictated in [place] Standard Time MTDD
[2019-08-05] MEDS: Budesonide 0.5 MG/2 ML Neb Susp NEB SCH ×2 (05:46→21:12)
[2019-08-05] MEDS: Benzonatate 100 MG Cap PO SCH ×3 (08:11→20:07)
[2019-08-05] MEDS: Thiamine 100 MG Tab PO SCH (08:12)
[2019-08-05] MEDS: guaiFENesin 600 MG Tab.ER PO SCH ×2 (08:12→20:07)
[2019-08-05] MEDS: methylPREDNISolone Sodium Succinate 40 MG/1 ML SDV IVPUSH SCH (08:14)
[2019-08-05] MEDS: amLODIPine 5 MG Tab PO SCH (08:22)
[2019-08-05] MEDS: Brimonidine 0.2% Ophth Soln 15 ML Bottle EYERT SCH ×2 (08:42→20:07)
[2019-08-05] MEDS: DORZOLAMIDE 2% EYERT SCH ×2 (08:42→20:07)
[2019-08-05] MEDS: Enoxaparin 40 MG/0.4 ML Syringe SUBCUT SCH (08:47)
[2019-08-05] MEDS: Levofloxacin/Dextrose 5%-Water 750 MG in Premix Bag 1 BAG IV SCH (10:49)
[2019-08-05] MEDS ORDERED: methylPREDNISolone Sodium Succinate 125 MG/2 ML SDV IVPUSH SCH (11:07)
[2019-08-05] MEDS ORDERED: Hydrochlorothiazide 12.5 MG Cap PO ONE (12:00)
[2019-08-05] MEDS: methylPREDNISolone Sodium Succinate 125 MG/2 ML SDV IVPUSH SCH ×2 (15:29→20:07)
[2019-08-05] MEDS: Lactated Ringers 1,000 ML IV SCH (16:30)
[2019-08-05] MEDS: Simvastatin 20 MG Tab PO SCH (20:07)
[2019-08-05] MEDS: LATANOPROST 0.005% EYERT SCH (20:07)
[2019-08-05] MEDS: Aspirin 81 MG Tab.EC PO SCH (20:07)
[2019-08-06] MEDS: Levalbuterol HCl 1.25 MG/3 ML Neb NEB SCH ×6 (02:49→21:01)
[2019-08-06] MEDS: Codeine/guaiFENesin 10-100 MG/5 ML Syrup 5 ML Cup PO SCH ×4 (03:10→20:11)
[2019-08-06] MEDS: Piperacillin/Tazobactam 4.5 GM in Sodium Chloride 0.9% 100 ML IV SCH ×3 (04:04→20:11)
[2019-08-06] MEDS: Budesonide 0.5 MG/2 ML Neb Susp NEB SCH ×2 (06:37→21:01)
[2019-08-06] MEDS: DORZOLAMIDE 2% EYERT SCH ×2 (08:33→17:41)
[2019-08-06] MEDS: Brimonidine 0.2% Ophth Soln 15 ML Bottle EYERT SCH ×2 (08:34→17:39)
--- NOTE | 2019-08-06 09:29 | PCM.PN ---
- General Info Date of Service: 08/05/19 Subjective Update: No BM since prior to admission Still with significant SOB Decreased responsiveness On BiPAP overnight - Patient Data Vitals - Most Recent: Last Vital Signs Temp 98.9 F 08/06/19 08:00 Pulse 117 H 08/05/19 12:00 Resp 20 08/06/19 08:00 BP 127/81 08/06/19 08:00 Pulse Ox 92 L 08/06/19 09:21 Weight - Most Recent: 59.2 kg - Exam Quality Assessment: Supplemental Oxygen, Urine Catheter, DVT Prophylaxis, Skin Breakdown General: Moderate Distress, Lethargic HEENT: Pupils Equal, Pupils Reactive, Mucous Membr. Moist/[place], Other ( ecchymosis on right maxillary, no active bleeding ) Neck: Supple, Trachea Midline, No JVD Lungs: Decreased Breath Sounds (minimal air movement, rib retractions, breathing with extension and flexion of shoulders). No: Crackles, Rales, Rhonchi, Rub, Stridor, Wheezing Cardiovascular: Tachycardia. No: Murmurs, Gallops, Rubs GI/Abdominal Exam: Soft, Non-Tender. No: Distended, Guarding, Rigid, Rebound Back Exam: Other (unable to inspect fully since any movement worsens respiratory status) Extremities: Mottled, Other (laceration on lateral left arm, not actively bleeding) Skin: Dry, Cool Wound/Incisions: Healing Well Neurological: No New Focal Deficit Sepsis Event Note - Evaluation Sepsis Screening Result: Sepsis Risk - Focused Exam Vital Signs: Vital Signs Temp Resp BP BP Pulse Ox Pulse Ox Pulse Ox 08/06/19 09:21 92 L 08/06/19 08:00 98.9 F 20 127/81 96 08/06/19 06:38 93 L 08/06/19 04:06 97 08/06/19 04:00 99.1 F 19 155/87 H 97 08/06/19 02:50 97 08/06/19 00:00 99.1 F 28 H 170/102 H 91 L 08/05/19 23:50 90 L Date Exam was Performed: 08/10/19 Time Exam was Performed: 17:39 - Problem List & Annotations (1) COPD exacerbation SNOMED Code(s): 646599090 Code(s): J44.1 - CHRONIC OBSTRUCTIVE PULMONARY DISEASE W (ACUTE) EXACERBATION Status: Acute Current Visit: Yes (2) Pulmonary cachexia due to chronic obstructive pulmonary disease SNOMED Code(s): 328682209 Code(s): J44.9 - CHRONIC OBSTRUCTIVE PULMONARY DISEASE, UNSPECIFIED; R64 - [place] Status: Acute Current Visit: Yes (3) Daily consumption of alcohol SNOMED Code(s): 871670197 Code(s): Z78.9 - OTHER SPECIFIED HEALTH STATUS Status: Acute Current Visit: Yes (4) Volume depletion SNOMED Code(s): 84858086 Code(s): E86.9 - VOLUME DEPLETION, UNSPECIFIED Status: Acute Current Visit: Yes (5) Hyperkalemia SNOMED Code(s): 53323187 Code(s): E87.5 - HYPERKALEMIA Status: Acute Current Visit: Yes (6) Ex-smoker SNOMED Code(s): 6310191 Code(s): Z87.891 - PERSONAL HISTORY OF NICOTINE DEPENDENCE Status: Acute Current Visit: No (7) Leukocytosis SNOMED Code(s): 888215365, 917093432 Code(s): D72.829 - ELEVATED WHITE BLOOD CELL COUNT, UNSPECIFIED Status: Acute Current Visit: No (8) Severe malnutrition SNOMED Code(s): 68646809 Code(s): E43 - UNSPECIFIED SEVERE PROTEIN-CALORIE MALNUTRITION Status: Acute Current Visit: No (9) Advanced COPD SNOMED Code(s): 21514094 Code(s): J44.9 - CHRONIC OBSTRUCTIVE PULMONARY DISEASE, UNSPECIFIED Status : Acute Current Visit: Yes (10) Acute on chronic respiratory failure with hypoxemia SNOMED Code(s): 89338276886869252 Code(s): J96.21 - ACUTE AND CHRONIC RESPIRATORY FAILURE WITH HYPOXIA Status : Acute Current Visit: Yes (11) Hypercapnic respiratory failure SNOMED Code(s): 278493958 Code(s): J96.92 - RESPIRATORY FAILURE, UNSPECIFIED WITH HYPERCAPNIA Status : Acute Current Visit: Yes (12) Hyperphosphatemia SNOMED Code(s): 73129600 Code(s): E83.39 - OTHER DISORDERS OF PHOSPHORUS METABOLISM Status: Acute Current Visit: Yes (13) Metabolic alkalosis with respiratory acidosis SNOMED Code(s): 741761873 Code(s): E87.4 - MIXED DISORDER OF ACID-BASE BALANCE Status: Acute Current Visit: Yes (14) Glaucoma SNOMED Code(s): 00930069 Code(s): H40.9 - UNSPECIFIED GLAUCOMA Status: Acute Current Visit: Yes - Problem List Review Problem List Initiated/Reviewed/Updated: Yes - Plan Plan:: ASSESSMENT DOA - Worsening SOB x 2 days - Attempted increasing NC rate and nebulization frequency - Unable to ambulate - Admitted on Solumedrol 60mg IV BID, DuoNebs q2h, Budesonide BID, guaifenesin and codeine and Azithromycin - Lactic acid trended up for approximately 10 hours and responded to fluid boluses - Code sepsis code, started on Zosyn, Vancomycin and Levaquin - Hyperkalemia, 5.5, with peak T waves - Insulin, D50 and DuoNeb Day 1 - PaO2 up from 75 to 90 - Peak T waves resolved and K down to 4.2 - Flu swab negative - MRSA negative --> Vancomycin discontinued - Placed on BiPAP in AM - Changed to inpatient - Increased Solumedrol to 60 TID - BP trend 106-140/69-95 - HR trend 108-129 - Tmax 98.2 Day 2 - Rapid response called last night - Patient fell in restroom and hit his head - Immediately after patient was visibly cyanotic, placed on BiPAP - CT head negative - Significantly tachycardic - PE ruled out with CTA chest - Transferred to ICU - Day 3 Zosyn and Levaquin - Increased Solumedrol to 125 TID - Air entry heard only in apex of both lungs - PCO2 >80, BiPAP settings changed - Cherry catheter placed due to patients poor tolernce to movement without decompensating respiratory bender Pneumonia COPD exacerbation in the setting of advanced COPD Acute on chronic respiratory failure with hypoxemia Pulmonary cachexia due to chronic obstructive pulmonary disease Leukocytosis, neutrophilia Ex-smoker PLAN - Solumedrol 125 mg IV TID - Xopenex Q4h - Budesonide BID - Levaquin and Zosyn day 3 - Scheduled guaifenesin and codeine syrup and Tessalon Perles - Nasal cannula to keep O2sat >88% - BiPAP as needed - RT assess and treat - Hold home inhalers Daily consumption of alcohol Drinks at least 1 beer/day, but sometimes up to 5 Last drink was 2 days ago PLAN - Alcohol cessation counseling - Monitor closely for withdrawal Severe malnutrition PLAN - Dietary consult - Magic cup and high protein ensure - Prealbumin level - B12 level - Vitamin D level - Folic acid level Volume depletion, resolved Hyperkalemia, resolved PROPHYLAXIS DVT- Lovenox GI- not indicated CODE STATUS: DNR/DNI DISPOSITION: Patient will remain admitted in ICU for BIPAP support and IV antibiotics. SOCIAL ISSUES: Is a Lives alone in a house in [place] Has 2 friends come in and help him out at home with some ADLs at least 4/week Has a nebulizer at home as well as O2
[2019-08-06] MEDS: Levofloxacin/Dextrose 5%-Water 750 MG in Premix Bag 1 BAG IV SCH (09:42)
[2019-08-06] MEDS: methylPREDNISolone Sodium Succinate 125 MG/2 ML SDV IVPUSH SCH ×3 (09:47→20:12)
[2019-08-06] MEDS: Enoxaparin 40 MG/0.4 ML Syringe SUBCUT SCH (09:49)
[2019-08-06] MEDS: amLODIPine 5 MG Tab PO SCH (09:50)
[2019-08-06] MEDS: Benzonatate 100 MG Cap PO SCH ×3 (09:50→20:11)
[2019-08-06] MEDS: Thiamine 100 MG Tab PO SCH (09:50)
[2019-08-06] MEDS: guaiFENesin 600 MG Tab.ER PO SCH ×2 (09:50→20:11)
[2019-08-06] MEDS: Lactated Ringers 1,000 ML IV SCH (12:11)
--- NOTE | 2019-08-06 14:44 | PCM.PN ---
- General Info Date of Service: 08/06/19 Subjective Update: BM 08/01 Refusing to eat Decreased urine output Balance +[id number] Refusing BiPAP - Patient Data Vitals - Most Recent: Last Vital Signs Temp 98.7 F 08/06/19 12:00 Pulse 117 H 08/05/19 12:00 Resp 14 08/06/19 12:45 BP 125/71 08/06/19 12:00 Pulse Ox 96 08/06/19 13:07 Weight - Most Recent: 59.2 kg - Exam Quality Assessment: Supplemental Oxygen, Urine Catheter, DVT Prophylaxis General: Alert, Oriented, Moderate Distress (obvious pursed lip expiration, intercostal retractions, flexing and extending shoulders constantly) HEENT: Pupils Equal, Pupils Reactive (sunken eyes), EOMI. No: Mucous Membr. Moist/[place] (dry) Neck: Supple, Trachea Midline, +2 Carotid Pulse wo Bruit. No: Lymphadenopathy Lungs: Decreased Breath Sounds, Wheezing. No: Crackles, Rales, Rhonchi, Rub, Stridor Cardiovascular: Tachycardia. No: Murmurs, Gallops, Rubs GI/Abdominal Exam: Soft, Non-Tender. No: Distended, Guarding, Rigid, Rebound Extremities: No Pedal Edema, Slow Capillary Refill, Mottled Skin: Dry, Cool Psy/Mental Status: Alert Sepsis Event Note - Evaluation Sepsis Screening Result: Sepsis Risk - Focused Exam Vital Signs: Vital Signs Temp Resp BP BP BP Pulse Ox Pulse Ox 08/06/19 13:07 96 08/06/19 12:45 14 95 08/06/19 12:30 14 08/06/19 12:15 15 95 08/06/19 12:00 98.7 F 16 125/71 96 08/06/19 11:45 15 08/06/19 11:30 23 H 08/06/19 11:17 94 L 08/06/19 11:15 23 H 08/06/19 11:00 22 H 08/06/19 10:45 16 90 L 08/06/19 10:30 22 H 08/06/19 10:00 23 H 89 L 08/06/19 09:50 127/81 08/06/19 09:45 26 H 92 L 08/06/19 09:30 24 H 90 L 08/06/19 09:21 92 L 08/06/19 09:15 23 H 92 L 08/06/19 09:00 21 H 91 L 08/06/19 08:45 20 88 L 08/06/19 08:30 22 H 08/06/19 08:15 18 95 08/06/19 08:00 98.9 F 20 127/81 96 08/06/19 06:38 93 L 08/06/19 04:06 97 08/06/19 04:00 99.1 F 19 155/87 H 97 08/06/19 02:50 97 Date Exam was Performed: 08/10/19 Time Exam was Performed: 17:57 - Problem List & Annotations (1) COPD exacerbation SNOMED Code(s): 114650121 Code(s): J44.1 - CHRONIC OBSTRUCTIVE PULMONARY DISEASE W (ACUTE) EXACERBATION Status: Acute Current Visit: Yes (2) Pulmonary cachexia due to chronic obstructive pulmonary disease SNOMED Code(s): 541881024 Code(s): J44.9 - CHRONIC OBSTRUCTIVE PULMONARY DISEASE, UNSPECIFIED; R64 - [place] Status: Acute Current Visit: Yes (3) Daily consumption of alcohol SNOMED Code(s): 946869935 Code(s): Z78.9 - OTHER SPECIFIED HEALTH STATUS Status: Acute Current Visit: Yes (4) Volume depletion SNOMED Code(s): 71389562 Code(s): E86.9 - VOLUME DEPLETION, UNSPECIFIED Status: Acute Current Visit: Yes (5) Hyperkalemia SNOMED Code(s): 55711009 Code(s): E87.5 - HYPERKALEMIA Status: Acute Current Visit: Yes (6) Ex-smoker SNOMED Code(s): 4635021 Code(s): Z87.891 - PERSONAL HISTORY OF NICOTINE DEPENDENCE Status: Acute Current Visit: No (7) Leukocytosis SNOMED Code(s): 504559408, 696319587 Code(s): D72.829 - ELEVATED WHITE BLOOD CELL COUNT, UNSPECIFIED Status: Acute Current Visit: No (8) Severe malnutrition SNOMED Code(s): 57896241 Code(s): E43 - UNSPECIFIED SEVERE PROTEIN-CALORIE MALNUTRITION Status: Acute Current Visit: No (9) Advanced COPD SNOMED Code(s): 64524192 Code(s): J44.9 - CHRONIC OBSTRUCTIVE PULMONARY DISEASE, UNSPECIFIED Status : Acute Current Visit: Yes (10) Acute on chronic respiratory failure with hypoxemia SNOMED Code(s): 83533874193078980 Code(s): J96.21 - ACUTE AND CHRONIC RESPIRATORY FAILURE WITH HYPOXIA Status : Acute Current Visit: Yes (11) Hypernatremia SNOMED Code(s): 141032153 Code(s): E87.0 - HYPEROSMOLALITY AND HYPERNATREMIA Status: Acute Current Visit: Yes (12) Hyperchloremia SNOMED Code(s): 24510561 Code(s): E87.8 - OTH DISORDERS OF ELECTROLYTE AND FLUID BALANCE, NEC Status : Acute Current Visit: Yes (13) Hypokalemia SNOMED Code(s): 18423353 Code(s): E87.6 - HYPOKALEMIA Status: Acute Current Visit: Yes (14) Cachectic SNOMED Code(s): 395725853 Code(s): R64 - [place] Status: Acute Current Visit: No (15) Hypercapnic respiratory failure SNOMED Code(s): 749215980 Code(s): J96.92 - RESPIRATORY FAILURE, UNSPECIFIED WITH HYPERCAPNIA Status : Acute Current Visit: Yes (16) Hyperphosphatemia SNOMED Code(s): 55272748 Code(s): E83.39 - OTHER DISORDERS OF PHOSPHORUS METABOLISM Status: Acute Current Visit: Yes (17) Metabolic alkalosis with respiratory acidosis SNOMED Code(s): 171101321 Code(s): E87.4 - MIXED DISORDER OF ACID-BASE BALANCE Status: Acute Current Visit: Yes (18) Tachycardia SNOMED Code(s): 0939129 Code(s): R00.0 - TACHYCARDIA, UNSPECIFIED Status: Acute Current Visit: No - Problem List Review Problem List Initiated/Reviewed/Updated: Yes - Plan Plan:: ASSESSMENT DOA - Worsening SOB x 2 days - Attempted increasing NC rate and nebulization frequency - Unable to ambulate - Admitted on Solumedrol 60mg IV BID, DuoNebs q2h, Budesonide BID, guaifenesin and codeine and Azithromycin - Lactic acid trended up for approximately 10 hours and responded to fluid boluses - Code sepsis code, started on Zosyn, Vancomycin and Levaquin - Hyperkalemia, 5.5, with peak T waves - Insulin, D50 and DuoNeb Day 1 - PaO2 up from 75 to 90 - Peak T waves resolved and K down to 4.2 - Flu swab negative - MRSA negative --> Vancomycin discontinued - Placed on BiPAP in AM - Changed to inpatient - Increased Solumedrol to 60 TID - BP trend 106-140/69-95 - HR trend 108-129 - Tmax 98.2 Day 2 - Rapid response called last night - Patient fell in restroom and hit his head - Immediately after patient was visibly cyanotic, placed on BiPAP - CT head negative - Significantly tachycardic - PE ruled out with CTA chest - Transferred to ICU - Day 3 Zosyn and Levaquin - Increased Solumedrol to 125 TID - Air entry heard only in apex of both lungs - PCO2 >80, BiPAP settings changed - Cherry catheter placed due to patients poor tolerance to movement without decompensating respiratory bender Day 3 - Refusing BiPAP - Leukocytosis resolved, 16.25 to 10.34 - Hypernatremia and hyperchloremia improved with volume repletion - Hyperphosphatemia resolved - Sat > 89% on NC at 2.5L - Tmax 99.1 - Continues to be tachycardic, trend 105-122 Pneumonia COPD exacerbation in the setting of advanced COPD Acute on chronic respiratory failure with hypoxemia Pulmonary cachexia due to chronic obstructive pulmonary disease Leukocytosis, neutrophilia Ex-smoker PLAN - Solumedrol 125 mg IV TID - Xopenex Q4h - Budesonide BID - Levaquin and Zosyn day 3 - Scheduled guaifenesin and codeine syrup and Tessalon Perles - Nasal cannula to keep O2sat >88% - BiPAP as needed Daily consumption of alcohol Drinks at least 1 beer/day, but sometimes up to 5 Last drink was 2 days ago PLAN - Alcohol cessation counseling - Monitor closely for withdrawal Severe malnutrition PLAN - Dietary consult - Magic cup and high protein ensure - Prealbumin level - B12 level - Vitamin D level - Folic acid level Volume depletion, resolved Hyperkalemia, resolved PROPHYLAXIS DVT- Lovenox GI- not indicated CODE STATUS: DNR/DNI DISPOSITION: Patient will remain admitted in ICU for close monitorization, O2 supplementation and IV antibiotics. SOCIAL ISSUES: Is a Lives alone in a house in [place] Has 2 friends come in and help him out at home with some ADLs at least 4/week Has a nebulizer at home as well as O2
[2019-08-06] MEDS: LATANOPROST 0.005% EYERT SCH (20:11)
[2019-08-06] MEDS: Simvastatin 20 MG Tab PO SCH (20:11)
[2019-08-06] MEDS: Aspirin 81 MG Tab.EC PO SCH (20:11)
[2019-08-07] MEDS: Levalbuterol HCl 1.25 MG/3 ML Neb NEB SCH ×6 (01:29→21:42)
[2019-08-07] MEDS: Codeine/guaiFENesin 10-100 MG/5 ML Syrup 5 ML Cup PO SCH ×4 (02:20→20:05)
[2019-08-07] MEDS: Piperacillin/Tazobactam 4.5 GM in Sodium Chloride 0.9% 100 ML IV SCH (04:20)
[2019-08-07] MEDS: Budesonide 0.5 MG/2 ML Neb Susp NEB SCH ×2 (05:26→21:42)
[2019-08-07] MEDS: Enoxaparin 40 MG/0.4 ML Syringe SUBCUT SCH (08:10)
[2019-08-07] MEDS: Lactated Ringers 1,000 ML IV SCH (08:11)
[2019-08-07] MEDS: guaiFENesin 600 MG Tab.ER PO SCH ×2 (08:12→20:06)
[2019-08-07] MEDS: methylPREDNISolone Sodium Succinate 125 MG/2 ML SDV IVPUSH SCH (08:12)
[2019-08-07] MEDS: Benzonatate 100 MG Cap PO SCH ×3 (08:12→20:06)
[2019-08-07] MEDS: amLODIPine 5 MG Tab PO SCH (08:12)
[2019-08-07] MEDS: Thiamine 100 MG Tab PO SCH (08:12)
[2019-08-07] MEDS: Brimonidine 0.2% Ophth Soln 15 ML Bottle EYERT SCH ×2 (08:13→17:25)
[2019-08-07] MEDS: DORZOLAMIDE 2% EYERT SCH ×2 (08:16→17:28)
[2019-08-07] MEDS: Levofloxacin/Dextrose 5%-Water 750 MG in Premix Bag 1 BAG IV SCH (09:35)
[2019-08-07] MEDS: Potassium Chloride 10 MEQ in Premix Bag 1 BAG IV SCH ×4 (11:09→15:04)
[2019-08-07] MEDS: Amoxicillin/Clavulanate K 875-125 MG Tab PO SCH ×2 (11:09→20:05)
[2019-08-07] MEDS: methylPREDNISolone Sodium Succinate 40 MG/1 ML SDV IVPUSH SCH ×2 (14:18→20:07)
[2019-08-07] MEDS: Aspirin 81 MG Tab.EC PO SCH (20:05)
[2019-08-07] MEDS: Simvastatin 20 MG Tab PO SCH (20:06)
[2019-08-07] MEDS: LATANOPROST 0.005% EYERT SCH (21:00)
[2019-08-08] MEDS: Levalbuterol HCl 1.25 MG/3 ML Neb NEB SCH ×6 (01:08→21:25)
[2019-08-08] MEDS: Lactated Ringers 1,000 ML IV SCH ×2 (03:48→20:32)
[2019-08-08] MEDS: Codeine/guaiFENesin 10-100 MG/5 ML Syrup 5 ML Cup PO SCH ×4 (03:48→20:31)
[2019-08-08] MEDS: Budesonide 0.5 MG/2 ML Neb Susp NEB SCH ×2 (05:09→21:25)
[2019-08-08] MEDS: Amoxicillin/Clavulanate K 875-125 MG Tab PO SCH ×2 (08:54→20:30)
[2019-08-08] MEDS: guaiFENesin 600 MG Tab.ER PO SCH ×2 (08:56→20:31)
[2019-08-08] MEDS: amLODIPine 5 MG Tab PO SCH (08:57)
[2019-08-08] MEDS: Benzonatate 100 MG Cap PO SCH ×3 (08:57→20:31)
[2019-08-08] MEDS: Thiamine 100 MG Tab PO SCH (08:57)
[2019-08-08] MEDS: methylPREDNISolone Sodium Succinate 40 MG/1 ML SDV IVPUSH SCH ×3 (08:58→20:30)
[2019-08-08] MEDS: Enoxaparin 40 MG/0.4 ML Syringe SUBCUT SCH (09:00)
[2019-08-08] MEDS: Brimonidine 0.2% Ophth Soln 15 ML Bottle EYERT SCH ×2 (09:04→17:55)
[2019-08-08] MEDS: DORZOLAMIDE 2% EYERT SCH ×2 (09:04→17:55)
[2019-08-08] MEDS: Aspirin 81 MG Tab.EC PO SCH (09:05)
[2019-08-08] MEDS: Levofloxacin 750 MG Tab PO SCH (10:14)
[2019-08-08] MEDS ORDERED: Codeine/guaiFENesin 10-100 MG/5 ML Syrup 5 ML Cup PO ONE (15:39)
--- NOTE | 2019-08-08 16:28 | PCM.PN ---
- General Info Date of Service: 08/08/19 Subjective Update: BM today Refusing to eat, work with PT or move out of bed - Patient Data Vitals - Most Recent: Last Vital Signs Temp 97.3 F 08/08/19 08:00 Pulse 116 H 08/08/19 08:00 Resp 22 H 08/08/19 08:00 BP 124/94 H 08/08/19 09:21 Pulse Ox 92 L 08/08/19 16:15 Weight - Most Recent: 63.866 kg - Exam Quality Assessment: Supplemental Oxygen, Urine Catheter, Skin Breakdown. No: DVT Prophylaxis General: Alert, Oriented, Cooperative, Moderate Distress HEENT: Pupils Equal, Pupils Reactive, EOMI, Mucous Membr. Moist/[place] Neck: Supple, Trachea Midline, No JVD, No Thyromegaly, +2 Carotid Pulse wo Bruit. No: Lymphadenopathy Lungs: Decreased Breath Sounds, Crackles. No: Rales, Rhonchi, Rub, Stridor, Wheezing Cardiovascular: Regular Rate, Regular Rhythm. No: Murmurs, Gallops, Rubs GI/Abdominal Exam: Normal Bowel Sounds, Soft, Non-Tender, No Organomegaly. No: Distended, Guarding, Rigid, Rebound Back Exam: Other (muscle wasting). No: Paraspinal Tenderness, Vertebral Tenderness Extremities: Slow Capillary Refill, Mottled. No: Pedal Edema Wound/Incisions: Healing Well Neurological: No New Focal Deficit Sepsis Event Note - Evaluation Sepsis Screening Result: Sepsis Risk - Problem List & Annotations (1) COPD exacerbation SNOMED Code(s): 368318076 Code(s): J44.1 - CHRONIC OBSTRUCTIVE PULMONARY DISEASE W (ACUTE) EXACERBATION Status: Acute Current Visit: Yes (2) Pulmonary cachexia due to chronic obstructive pulmonary disease SNOMED Code(s): 656054950 Code(s): J44.9 - CHRONIC OBSTRUCTIVE PULMONARY DISEASE, UNSPECIFIED; R64 - CACHEXIA Status: Acute Current Visit: Yes (3) Daily consumption of alcohol SNOMED Code(s): 583571530 Code(s): Z78.9 - OTHER SPECIFIED HEALTH STATUS Status: Acute Current Visit: Yes (4) Volume depletion SNOMED Code(s): 47781217 Code(s): E86.9 - VOLUME DEPLETION, UNSPECIFIED Status: Acute Current Visit: Yes (5) Hyperkalemia SNOMED Code(s): 23815789 Code(s): E87.5 - HYPERKALEMIA Status: Acute Current Visit: Yes (6) Ex-smoker SNOMED Code(s): 5559861 Code(s): Z87.891 - PERSONAL HISTORY OF NICOTINE DEPENDENCE Status: Acute Current Visit: No (7) Leukocytosis SNOMED Code(s): 693212134, 304248231 Code(s): D72.829 - ELEVATED WHITE BLOOD CELL COUNT, UNSPECIFIED Status: Acute Current Visit: No (8) Severe malnutrition SNOMED Code(s): 12238620 Code(s): E43 - UNSPECIFIED SEVERE PROTEIN-CALORIE MALNUTRITION Status: Acute Current Visit: No (9) Advanced COPD SNOMED Code(s): 35914300 Code(s): J44.9 - CHRONIC OBSTRUCTIVE PULMONARY DISEASE, UNSPECIFIED Status : Acute Current Visit: Yes (10) Acute on chronic respiratory failure with hypoxemia SNOMED Code(s): 37590799128142233 Code(s): J96.21 - ACUTE AND CHRONIC RESPIRATORY FAILURE WITH HYPOXIA Status : Acute Current Visit: Yes (11) Cachectic SNOMED Code(s): 033826063 Code(s): R64 - [place]HEXIA Status: Acute Current Visit: No (12) Glaucoma SNOMED Code(s): 41795773 Code(s): H40.9 - UNSPECIFIED GLAUCOMA Status: Acute Current Visit: Yes (13) Hypercapnic respiratory failure SNOMED Code(s): 484600975 Code(s): J96.92 - RESPIRATORY FAILURE, UNSPECIFIED WITH HYPERCAPNIA Status : Acute Current Visit: Yes (14) Hyperchloremia SNOMED Code(s): 74885054 Code(s): E87.8 - OTH DISORDERS OF ELECTROLYTE AND FLUID BALANCE, NEC Status : Acute Current Visit: Yes (15) Hypernatremia SNOMED Code(s): 961903271 Code(s): E87.0 - HYPEROSMOLALITY AND HYPERNATREMIA Status: Acute Current Visit: Yes (16) Hyperphosphatemia SNOMED Code(s): 84254739 Code(s): E83.39 - OTHER DISORDERS OF PHOSPHORUS METABOLISM Status: Acute Current Visit: Yes (17) Hypokalemia SNOMED Code(s): 36874818 Code(s): E87.6 - HYPOKALEMIA Status: Acute Current Visit: Yes (18) Hypoxemia SNOMED Code(s): 077978652 Code(s): R09.02 - HYPOXEMIA Status: Acute Current Visit: Yes (19) Metabolic alkalosis with respiratory acidosis SNOMED Code(s): 271043315 Code(s): E87.4 - MIXED DISORDER OF ACID-BASE BALANCE Status: Acute Current Visit: Yes (20) Pneumonia SNOMED Code(s): 261435397 Code(s): J18.9 - PNEUMONIA, UNSPECIFIED ORGANISM Status: Acute Current Visit: Yes (21) Tachycardia SNOMED Code(s): 2029340 Code(s): R00.0 - TACHYCARDIA, UNSPECIFIED Status: Acute Current Visit: No (22) Demoralization & apathy SNOMED Code(s): 387892763, 39807159, 464069445 Code(s): R45.3 - DEMORALIZATION AND APATHY Status: Acute Current Visit: Yes - Problem List Review Problem List Initiated/Reviewed/Updated: Yes - Plan Plan:: ASSESSMENT DOA - Worsening SOB x 2 days - Attempted increasing NC rate and nebulization frequency - Unable to ambulate - Admitted on Solumedrol 60mg IV BID, DuoNebs q2h, Budesonide BID, guaifenesin and codeine and Azithromycin - Lactic acid trended up for approximately 10 hours and responded to fluid boluses - Code sepsis code, started on Zosyn, Vancomycin and Levaquin - Hyperkalemia, 5.5, with peak T waves - Insulin, D50 and DuoNeb Day 1 - PaO2 up from 75 to 90 - Peak T waves resolved and K down to 4.2 - Flu swab negative - MRSA negative --> Vancomycin discontinued - Placed on BiPAP in AM - Changed to inpatient - Increased Solumedrol to 60 TID - BP trend 106-140/69-95 - HR trend 108-129 - Tmax 98.2 Day 2 - Rapid response called last night - Patient fell in restroom and hit his head - Immediately after patient was visibly cyanotic, placed on BiPAP - CT head negative - Significantly tachycardic - PE ruled out with CTA chest - Transferred to ICU - Day 3 Zosyn and Levaquin - Increased Solumedrol to 125 TID - Air entry heard only in apex of both lungs - PCO2 >80, BiPAP settings changed - Cherry catheter placed due to patients poor tolerance to movement without decompensating respiratory bender Day 3 - Refusing BiPAP - Leukocytosis resolved, 16.25 to 10.34 - Hypernatremia and hyperchloremia improved with volume repletion - Hyperphosphatemia resolved - Sat > 89% on NC at 2.5L - Tmax 99.1 - Continues to be tachycardic, trend 105-122 Day 4 - Transition antibiotics to PO, Levaquin and Augmentin, day 5 - Decrease Solumedrol to 80mg TID - Accepted at [facility] for placement - UO 2275, 94ml/hr - Tmax 99.1 - BP trend 127-140/71-87 - HR trend 103-114 - Leukocytosis resolved form 10.34 to 9.03 - K down from 4.1 to 3.3 Day 5 - Patient has been refusing more and more services each day - Discussed options of level and goals of care and he still wishes to remain DNR /DNI status - States he is not ready to focus on comfort care yet - BP trend 104-126/65-88 - HR controlled, rate trend 98-101 - Tmax 99.1 - Sat > 92% on 3L NC Pneumonia COPD exacerbation in the setting of advanced COPD Acute on chronic respiratory failure with hypoxemia Pulmonary cachexia due to chronic obstructive pulmonary disease Leukocytosis, neutrophilia Ex-smoker PLAN - Solumedrol 80 mg IV TID - Xopenex Q4h - Budesonide BID - Levaquin and Augmentin day 6 - Scheduled guaifenesin and codeine syrup and Tessalon Perles - Nasal cannula to keep O2sat >88% Daily consumption of alcohol Drinks at least 1 beer/day, but sometimes up to 5 Last drink was 2 days ago PLAN - Alcohol cessation counseling - Monitor closely for withdrawal Severe malnutrition PLAN - Dietary consult - Magic cup and high protein ensure - Prealbumin level - B12 level - Vitamin D level - Folic acid level Volume depletion, resolved Hyperkalemia, resolved PROPHYLAXIS DVT- Lovenox GI- not indicated CODE STATUS: DNR/DNI DISPOSITION: Patient will remain admitted in ICU for close monitorization, O2 supplementation and antibiotics SOCIAL ISSUES: Is a Lives alone in a house in [place] Has 2 friends come in and help him out at home with some ADLs at least 4/week Has a nebulizer at home as well as O2
--- NOTE | 2019-08-08 16:28 | PCM.PN ---
- General Info Date of Service: 08/07/19 Subjective Update: Still refusing to eat and to use BiPAP No BM yet In and out of sleep all day - Patient Data Vitals - Most Recent: Last Vital Signs Temp 97.3 F 08/08/19 08:00 Pulse 116 H 08/08/19 08:00 Resp 22 H 08/08/19 08:00 BP 124/94 H 08/08/19 09:21 Pulse Ox 92 L 08/08/19 16:15 Weight - Most Recent: 63.866 kg - Exam Quality Assessment: Supplemental Oxygen, Urine Catheter, DVT Prophylaxis General: Alert, Oriented, Cooperative, Moderate Distress HEENT: Pupils Equal, Pupils Reactive, EOMI, Mucous Membr. Moist/[place] Neck: Supple, Trachea Midline, No JVD, No Thyromegaly, +2 Carotid Pulse wo Bruit. No: Lymphadenopathy Lungs: Decreased Breath Sounds, Wheezing. No: Normal Respiratory Effort, Crackles, Rales, Rhonchi, Rub Cardiovascular: Regular Rhythm, Tachycardia. No: Murmurs, Gallops, Rubs GI/Abdominal Exam: Normal Bowel Sounds, Soft, Non-Tender, No Organomegaly, No Distention. No: Guarding, Rigid, Rebound Extremities: No Pedal Edema, Slow Capillary Refill, Mottled Skin: Dry, Cool Neurological: No New Focal Deficit Sepsis Event Note - Evaluation Sepsis Screening Result: Sepsis Risk - Problem List & Annotations (1) COPD exacerbation SNOMED Code(s): 447356732 Code(s): J44.1 - CHRONIC OBSTRUCTIVE PULMONARY DISEASE W (ACUTE) EXACERBATION Status: Acute Current Visit: Yes (2) Pulmonary cachexia due to chronic obstructive pulmonary disease SNOMED Code(s): 133143354 Code(s): J44.9 - CHRONIC OBSTRUCTIVE PULMONARY DISEASE, UNSPECIFIED; R64 - [place]HEXIA Status: Acute Current Visit: Yes (3) Daily consumption of alcohol SNOMED Code(s): 993025689 Code(s): Z78.9 - OTHER SPECIFIED HEALTH STATUS Status: Acute Current Visit: Yes (4) Volume depletion SNOMED Code(s): 60390184 Code(s): E86.9 - VOLUME DEPLETION, UNSPECIFIED Status: Acute Current Visit: Yes (5) Hyperkalemia SNOMED Code(s): 98231235 Code(s): E87.5 - HYPERKALEMIA Status: Acute Current Visit: Yes (6) Ex-smoker SNOMED Code(s): 9845677 Code(s): Z87.891 - PERSONAL HISTORY OF NICOTINE DEPENDENCE Status: Acute Current Visit: No (7) Leukocytosis SNOMED Code(s): 794943332, 180548238 Code(s): D72.829 - ELEVATED WHITE BLOOD CELL COUNT, UNSPECIFIED Status: Acute Current Visit: No (8) Severe malnutrition SNOMED Code(s): 95888764 Code(s): E43 - UNSPECIFIED SEVERE PROTEIN-CALORIE MALNUTRITION Status: Acute Current Visit: No (9) Advanced COPD SNOMED Code(s): 81854466 Code(s): J44.9 - CHRONIC OBSTRUCTIVE PULMONARY DISEASE, UNSPECIFIED Status : Acute Current Visit: Yes (10) Acute on chronic respiratory failure with hypoxemia SNOMED Code(s): 02561432483096315 Code(s): J96.21 - ACUTE AND CHRONIC RESPIRATORY FAILURE WITH HYPOXIA Status : Acute Current Visit: Yes (11) Hypercapnic respiratory failure SNOMED Code(s): 425901747 Code(s): J96.92 - RESPIRATORY FAILURE, UNSPECIFIED WITH HYPERCAPNIA Status : Acute Current Visit: Yes (12) Hyperchloremia SNOMED Code(s): 61642676 Code(s): E87.8 - OTH DISORDERS OF ELECTROLYTE AND FLUID BALANCE, NEC Status : Acute Current Visit: Yes (13) Hypernatremia SNOMED Code(s): 921597305 Code(s): E87.0 - HYPEROSMOLALITY AND HYPERNATREMIA Status: Acute Current Visit: Yes (14) Hyperphosphatemia SNOMED Code(s): 70212543 Code(s): E83.39 - OTHER DISORDERS OF PHOSPHORUS METABOLISM Status: Acute Current Visit: Yes (15) Hypokalemia SNOMED Code(s): 53312628 Code(s): E87.6 - HYPOKALEMIA Status: Acute Current Visit: Yes (16) Metabolic alkalosis with respiratory acidosis SNOMED Code(s): 184624357 Code(s): E87.4 - MIXED DISORDER OF ACID-BASE BALANCE Status: Acute Current Visit: Yes (17) Pneumonia SNOMED Code(s): 353077920 Code(s): J18.9 - PNEUMONIA, UNSPECIFIED ORGANISM Status: Acute Current Visit: Yes (18) Tachycardia SNOMED Code(s): 0905329 Code(s): R00.0 - TACHYCARDIA, UNSPECIFIED Status: Acute Current Visit: No (19) Glaucoma SNOMED Code(s): 92214266 Code(s): H40.9 - UNSPECIFIED GLAUCOMA Status: Acute Current Visit: Yes - Problem List Review Problem List Initiated/Reviewed/Updated: Yes - Plan Plan:: ASSESSMENT DOA - Worsening SOB x 2 days - Attempted increasing NC rate and nebulization frequency - Unable to ambulate - Admitted on Solumedrol 60mg IV BID, DuoNebs q2h, Budesonide BID, guaifenesin and codeine and Azithromycin - Lactic acid trended up for approximately 10 hours and responded to fluid boluses - Code sepsis code, started on Zosyn, Vancomycin and Levaquin - Hyperkalemia, 5.5, with peak T waves - Insulin, D50 and DuoNeb Day 1 - PaO2 up from 75 to 90 - Peak T waves resolved and K down to 4.2 - Flu swab negative - MRSA negative --> Vancomycin discontinued - Placed on BiPAP in AM - Changed to inpatient - Increased Solumedrol to 60 TID - BP trend 106-140/69-95 - HR trend 108-129 - Tmax 98.2 Day 2 - Rapid response called last night - Patient fell in restroom and hit his head - Immediately after patient was visibly cyanotic, placed on BiPAP - CT head negative - Significantly tachycardic - PE ruled out with CTA chest - Transferred to ICU - Day 3 Zosyn and Levaquin - Increased Solumedrol to 125 TID - Air entry heard only in apex of both lungs - PCO2 >80, BiPAP settings changed - Cherry catheter placed due to patients poor tolerance to movement without decompensating respiratory bender Day 3 - Refusing BiPAP - Leukocytosis resolved, 16.25 to 10.34 - Hypernatremia and hyperchloremia improved with volume repletion - Hyperphosphatemia resolved - Sat > 89% on NC at 2.5L - Tmax 99.1 - Continues to be tachycardic, trend 105-122 Day 4 - Transition antibiotics to PO, Levaquin and Augmentin, day 5 - Decrease Solumedrol to 80mg TID - Accepted at [facility] for placement - UO 2275, 94ml/hr - Tmax 99.1 - BP trend 127-140/71-87 - HR trend 103-114 - Leukocytosis resolved form 10.34 to 9.03 - K down from 4.1 to 3.3 Pneumonia COPD exacerbation in the setting of advanced COPD Acute on chronic respiratory failure with hypoxemia Pulmonary cachexia due to chronic obstructive pulmonary disease Leukocytosis, neutrophilia Ex-smoker PLAN - Solumedrol 80 mg IV TID - Xopenex Q4h - Budesonide BID - Levaquin and Augmentin day 5 - Scheduled guaifenesin and codeine syrup and Tessalon Perles - Nasal cannula to keep O2sat >88% Daily consumption of alcohol Drinks at least 1 beer/day, but sometimes up to 5 Last drink was 2 days ago PLAN - Alcohol cessation counseling - Monitor closely for withdrawal Severe malnutrition PLAN - Dietary consult - Magic cup and high protein ensure - Prealbumin level - B12 level - Vitamin D level - Folic acid level Volume depletion, resolved Hyperkalemia, resolved PROPHYLAXIS DVT- Lovenox GI- not indicated CODE STATUS: DNR/DNI DISPOSITION: Patient will remain admitted in ICU for close monitorization, O2 supplementation and antibiotics SOCIAL ISSUES: Is a Lives alone in a house in [place] Has 2 friends come in and help him out at home with some ADLs at least 4/week Has a nebulizer at home as well as O2
[2019-08-08] MEDS: Simvastatin 20 MG Tab PO SCH (20:31)
[2019-08-08] MEDS: LATANOPROST 0.005% EYERT SCH (20:32)
[2019-08-08] MEDS ORDERED: LORazepam 1 MG Tab PO ONE (21:24)
[2019-08-09] MEDS: Levalbuterol HCl 1.25 MG/3 ML Neb NEB SCH ×6 (02:34→21:51)
[2019-08-09] MEDS: Codeine/guaiFENesin 10-100 MG/5 ML Syrup 5 ML Cup PO SCH ×4 (04:16→20:31)
[2019-08-09] MEDS: Budesonide 0.5 MG/2 ML Neb Susp NEB SCH ×2 (06:42→21:50)
--- NOTE | 2019-08-09 09:11 | PCM.PN ---
- General Info Date of Service: 08/09/19 Subjective Update: Eating more Drank 50% of supplements Slept through the night Passive range of motion with PT - Patient Data Vitals - Most Recent: Last Vital Signs Temp 98.4 F 08/09/19 04:00 Pulse 99 08/09/19 04:00 Resp 23 H 08/09/19 04:00 BP 110/73 08/09/19 04:00 Pulse Ox 98 08/09/19 06:44 Weight - Most Recent: 62.188 kg - Exam Quality Assessment: Supplemental Oxygen, Urine Catheter, DVT Prophylaxis, Skin Breakdown. No: Central Line/PICC General: Alert, Oriented, Cooperative, Mild Distress, Moderate Distress HEENT: Pupils Equal, Pupils Reactive, EOMI, Mucous Membr. Moist/[place] Neck: Supple, Trachea Midline, No JVD, No Thyromegaly, +2 Carotid Pulse wo Bruit. No: Lymphadenopathy Lungs: Decreased Breath Sounds, Crackles, Wheezing. No: Rales, Rhonchi, Rub, Stridor Cardiovascular: Regular Rate, Regular Rhythm. No: Murmurs, Gallops, Rubs GI/Abdominal Exam: Normal Bowel Sounds, Soft, Non-Tender, No Organomegaly, No Mass. No: Distended, Guarding, Rigid, Rebound Back Exam: Other (severe muscle wasting). No: CVA Tenderness (L), CVA Tenderness (R), Paraspinal Tenderness, Vertebral Tenderness Extremities: No Pedal Edema, Slow Capillary Refill, Mottled Skin: Dry, Cool Wound/Incisions: Healing Well Neurological: No New Focal Deficit Psy/Mental Status: Alert Sepsis Event Note - Evaluation Sepsis Screening Result: Sepsis Risk - Problem List & Annotations (1) COPD exacerbation SNOMED Code(s): 028008369 Code(s): J44.1 - CHRONIC OBSTRUCTIVE PULMONARY DISEASE W (ACUTE) EXACERBATION Status: Acute Current Visit: Yes (2) Pulmonary cachexia due to chronic obstructive pulmonary disease SNOMED Code(s): 480800386 Code(s): J44.9 - CHRONIC OBSTRUCTIVE PULMONARY DISEASE, UNSPECIFIED; R64 - [place]HE[place]IA Status: Acute Current Visit: Yes (3) Daily consumption of alcohol SNOMED Code(s): 303099689 Code(s): Z78.9 - OTHER SPECIFIED HEALTH STATUS Status: Acute Current Visit: Yes (4) Volume depletion SNOMED Code(s): 55527858 Code(s): E86.9 - VOLUME DEPLETION, UNSPECIFIED Status: Acute Current Visit: Yes (5) Hyperkalemia SNOMED Code(s): 26356832 Code(s): E87.5 - HYPERKALEMIA Status: Acute Current Visit: Yes (6) Ex-smoker SNOMED Code(s): 3320351 Code(s): Z87.891 - PERSONAL HISTORY OF NICOTINE DEPENDENCE Status: Acute Current Visit: No (7) Leukocytosis SNOMED Code(s): 663820543, 026886309 Code(s): D72.829 - ELEVATED WHITE BLOOD CELL COUNT, UNSPECIFIED Status: Acute Current Visit: No (8) Severe malnutrition SNOMED Code(s): 23779876 Code(s): E43 - UNSPECIFIED SEVERE PROTEIN-CALORIE MALNUTRITION Status: Acute Current Visit: No (9) Advanced COPD SNOMED Code(s): 89941994 Code(s): J44.9 - CHRONIC OBSTRUCTIVE PULMONARY DISEASE, UNSPECIFIED Status : Acute Current Visit: Yes (10) Acute on chronic respiratory failure with hypoxemia SNOMED Code(s): 97401844475503339 Code(s): J96.21 - ACUTE AND CHRONIC RESPIRATORY FAILURE WITH HYPOXIA Status : Acute Current Visit: Yes (11) Acute on chronic respiratory failure with hypoxia SNOMED Code(s): 27408938, 323815743 Code(s): J96.21 - ACUTE AND CHRONIC RESPIRATORY FAILURE WITH HYPOXIA Status : Acute Current Visit: No (12) Cachectic SNOMED Code(s): 649473641 Code(s): R64 - [place] Status: Acute Current Visit: No (13) Demoralization & apathy SNOMED Code(s): 978410220, 79762562, 654823705 Code(s): R45.3 - DEMORALIZATION AND APATHY Status: Acute Current Visit: Yes (14) Glaucoma SNOMED Code(s): 47671354 Code(s): H40.9 - UNSPECIFIED GLAUCOMA Status: Acute Current Visit: Yes (15) Hypercapnic respiratory failure SNOMED Code(s): 600172560 Code(s): J96.92 - RESPIRATORY FAILURE, UNSPECIFIED WITH HYPERCAPNIA Status : Acute Current Visit: Yes (16) Hyperchloremia SNOMED Code(s): 34508953 Code(s): E87.8 - OTH DISORDERS OF ELECTROLYTE AND FLUID BALANCE, NEC Status : Acute Current Visit: Yes (17) Hyperphosphatemia SNOMED Code(s): 77614868 Code(s): E83.39 - OTHER DISORDERS OF PHOSPHORUS METABOLISM Status: Acute Current Visit: Yes (18) Hypokalemia SNOMED Code(s): 34726537 Code(s): E87.6 - HYPOKALEMIA Status: Acute Current Visit: Yes (19) Hypoxemia SNOMED Code(s): 608920109 Code(s): R09.02 - HYPOXEMIA Status: Acute Current Visit: Yes (20) Metabolic alkalosis with respiratory acidosis SNOMED Code(s): 988884480 Code(s): E87.4 - MIXED DISORDER OF ACID-BASE BALANCE Status: Acute Current Visit: Yes (21) Pneumonia SNOMED Code(s): 037837313 Code(s): J18.9 - PNEUMONIA, UNSPECIFIED ORGANISM Status: Acute Current Visit: Yes (22) Tachycardia SNOMED Code(s): 2026668 Code(s): R00.0 - TACHYCARDIA, UNSPECIFIED Status: Acute Current Visit: No (23) Oral candidiasis SNOMED Code(s): 14079038 Code(s): B37.0 - CANDIDAL STOMATITIS Status: Acute Current Visit: Yes - Problem List Review Problem List Initiated/Reviewed/Updated: Yes - Plan Plan:: ASSESSMENT DOA - Worsening SOB x 2 days - Attempted increasing NC rate and nebulization frequency - Unable to ambulate - Admitted on Solumedrol 60mg IV BID, DuoNebs q2h, Budesonide BID, guaifenesin and codeine and Azithromycin - Lactic acid trended up for approximately 10 hours and responded to fluid boluses - Code sepsis code, started on Zosyn, Vancomycin and Levaquin - Hyperkalemia, 5.5, with peak T waves - Insulin, D50 and DuoNeb Day 1 - PaO2 up from 75 to 90 - Peak T waves resolved and K down to 4.2 - Flu swab negative - MRSA negative --> Vancomycin discontinued - Placed on BiPAP in AM - Changed to inpatient - Increased Solumedrol to 60 TID - BP trend 106-140/69-95 - HR trend 108-129 - Tmax 98.2 Day 2 - Rapid response called last night - Patient fell in restroom and hit his head - Immediately after patient was visibly cyanotic, placed on BiPAP - CT head negative - Significantly tachycardic - PE ruled out with CTA chest - Transferred to ICU - Day 3 Zosyn and Levaquin - Increased Solumedrol to 125 TID - Air entry heard only in apex of both lungs - PCO2 >80, BiPAP settings changed - Cherry catheter placed due to patients poor tolerance to movement without decompensating respiratory bender Day 3 - Refusing BiPAP - Leukocytosis resolved, 16.25 to 10.34 - Hypernatremia and hyperchloremia improved with volume repletion - Hyperphosphatemia resolved - Sat > 89% on NC at 2.5L - Tmax 99.1 - Continues to be tachycardic, trend 105-122 Day 4 - Transition antibiotics to PO, Levaquin and Augmentin, day 5 - Decrease Solumedrol to 80mg TID - Accepted at [facility] for placement - UO 2275, 94ml/hr - Tmax 99.1 - BP trend 127-140/71-87 - HR trend 103-114 - Leukocytosis resolved form 10.34 to 9.03 - K down from 4.1 to 3.3 Day 5 - Patient has been refusing more and more services each day - Discussed options of level and goals of care and he still wishes to remain DNR /DNI status - States he is not ready to focus on comfort care yet - BP trend 104-126/65-88 - HR controlled, rate trend 98-101 - Tmax 99.1 - Sat > 92% on 3L NC Day 6 - Still having tachycardia on and off, sinus, trend 94-116 - Labetalol PRN - Amlodipine daily - Started on Nystatin TID - Hypokalemia resolved - GFR stable - Continue antibiotics Pneumonia COPD exacerbation in the setting of advanced COPD Acute on chronic respiratory failure with hypoxemia Pulmonary cachexia due to chronic obstructive pulmonary disease Leukocytosis, neutrophilia Ex-smoker PLAN - Solumedrol 80 mg IV TID - Xopenex Q4h - Budesonide BID - Levaquin and Augmentin day 7 - Scheduled guaifenesin and codeine syrup and Tessalon Perles - Nasal cannula to keep O2sat >88% Oral candidiasis - Start Nystatin Glaucoma - Continue home medications Hypertension - Continue amlodipine Tachycardia - PRN labetalol Daily consumption of alcohol Drinks at least 1 beer/day, but sometimes up to 5 Last drink was 2 days ago PLAN - Alcohol cessation counseling - Monitor closely for withdrawal Severe malnutrition PLAN - Dietary consult - Magic cup and high protein ensure - Prealbumin level - B12 level - Vitamin D level - Folic acid level Volume depletion, resolved Hyperkalemia, resolved PROPHYLAXIS DVT- Lovenox GI- not indicated CODE STATUS: DNR/DNI DISPOSITION: Patient will remain admitted ok to transition to medical floor to continue antibiotics and O2 supplementation SOCIAL ISSUES: Is a Lives alone in a house in [place] Has 2 friends come in and help him out at home with some ADLs at least 4/week Has a nebulizer at home as well as O2
[2019-08-09] MEDS: Aspirin 81 MG Tab.EC PO SCH (09:20)
[2019-08-09] MEDS: guaiFENesin 600 MG Tab.ER PO SCH ×2 (09:20→20:33)
[2019-08-09] MEDS: Amoxicillin/Clavulanate K 875-125 MG Tab PO SCH ×2 (09:20→20:32)
[2019-08-09] MEDS: Benzonatate 100 MG Cap PO SCH ×3 (09:20→20:33)
[2019-08-09] MEDS: Thiamine 100 MG Tab PO SCH (09:20)
[2019-08-09] MEDS: Enoxaparin 40 MG/0.4 ML Syringe SUBCUT SCH (09:20)
[2019-08-09] MEDS: methylPREDNISolone Sodium Succinate 40 MG/1 ML SDV IVPUSH SCH ×3 (09:20→20:31)
[2019-08-09] MEDS: amLODIPine 5 MG Tab PO SCH (09:20)
[2019-08-09] MEDS: DORZOLAMIDE 2% EYERT SCH ×2 (09:21→16:19)
[2019-08-09] MEDS: Brimonidine 0.2% Ophth Soln 15 ML Bottle EYERT SCH ×2 (09:21→16:18)
[2019-08-09] MEDS: Nystatin Susp 100,000 Unit/ML 5 ML Oral Syringe PO SCH ×3 (09:21→20:33)
[2019-08-09] MEDS: Levofloxacin 750 MG Tab PO SCH (09:40)
[2019-08-09] MEDS: Lactated Ringers 1,000 ML IV SCH (16:18)
[2019-08-09] MEDS ORDERED: LORazepam 1 MG Tab PO PRN (19:44)
[2019-08-09] MEDS: LATANOPROST 0.005% EYERT SCH (20:33)
[2019-08-09] MEDS: Simvastatin 20 MG Tab PO SCH (20:33)
[2019-08-10] MEDS: Levalbuterol HCl 1.25 MG/3 ML Neb NEB SCH ×5 (02:02→20:11)
[2019-08-10] MEDS: Codeine/guaiFENesin 10-100 MG/5 ML Syrup 5 ML Cup PO SCH ×4 (02:33→21:32)
[2019-08-10] MEDS: Budesonide 0.5 MG/2 ML Neb Susp NEB SCH ×2 (06:48→20:11)
[2019-08-10] MEDS: Amoxicillin/Clavulanate K 875-125 MG Tab PO SCH (10:00)
[2019-08-10] MEDS: Aspirin 81 MG Tab.EC PO SCH (10:00)
[2019-08-10] MEDS: Thiamine 100 MG Tab PO SCH (10:00)
[2019-08-10] MEDS: amLODIPine 5 MG Tab PO SCH (10:00)
[2019-08-10] MEDS: methylPREDNISolone Sodium Succinate 40 MG/1 ML SDV IVPUSH SCH ×3 (10:00→21:32)
[2019-08-10] MEDS: guaiFENesin 600 MG Tab.ER PO SCH ×2 (10:00→21:31)
[2019-08-10] MEDS: Benzonatate 100 MG Cap PO SCH ×3 (10:00→21:31)
[2019-08-10] MEDS: Levofloxacin 750 MG Tab PO SCH (10:16)
[2019-08-10] MEDS: Nystatin Susp 100,000 Unit/ML 5 ML Oral Syringe PO SCH ×3 (10:18→21:32)
[2019-08-10] MEDS: Enoxaparin 40 MG/0.4 ML Syringe SUBCUT SCH (10:18)
[2019-08-10] MEDS: DORZOLAMIDE 2% EYERT SCH ×2 (10:19→17:47)
[2019-08-10] MEDS: Brimonidine 0.2% Ophth Soln 15 ML Bottle EYERT SCH ×2 (10:19→17:47)
--- NOTE | 2019-08-10 11:06 | PCM.PN ---
- General Info Date of Service: 08/10/19 Subjective Update: Slept Ok No complaints - Patient Data Vitals - Most Recent: Last Vital Signs Temp 97.2 F 08/10/19 07:45 Pulse 93 08/10/19 07:45 Resp 16 08/10/19 07:45 BP 123/78 08/10/19 10:00 Pulse Ox 90 L 08/10/19 09:29 Weight - Most Recent: 60.691 kg - Exam General: Alert, Oriented, Cooperative, Mild Distress HEENT: Pupils Equal, Pupils Reactive, EOMI, Mucous Membr. Moist/[place] Neck: Supple, Trachea Midline, No JVD, No Thyromegaly, +2 Carotid Pulse wo Bruit. No: Lymphadenopathy Lungs: Decreased Breath Sounds, Crackles, Wheezing. No: Rales, Rhonchi, Rub, Stridor Cardiovascular: Regular Rhythm, Tachycardia. No: Murmurs, Gallops, Rubs GI/Abdominal Exam: Normal Bowel Sounds, Soft, Non-Tender, No Organomegaly. No: Distended, Guarding, Rigid, Rebound Back Exam: No: Paraspinal Tenderness, Vertebral Tenderness Extremities: No Pedal Edema, Slow Capillary Refill, Mottled Skin: Dry, Cool Neurological: No New Focal Deficit Psy/Mental Status: Alert Sepsis Event Note - Evaluation Sepsis Screening Result: Sepsis Risk - Problem List & Annotations (1) COPD exacerbation SNOMED Code(s): 838512363 Code(s): J44.1 - CHRONIC OBSTRUCTIVE PULMONARY DISEASE W (ACUTE) EXACERBATION Status: Acute Current Visit: Yes (2) Pulmonary cachexia due to chronic obstructive pulmonary disease SNOMED Code(s): 650196175 Code(s): J44.9 - CHRONIC OBSTRUCTIVE PULMONARY DISEASE, UNSPECIFIED; R64 - CACHEXIA Status: Acute Current Visit: Yes (3) Daily consumption of alcohol SNOMED Code(s): 013346563 Code(s): Z78.9 - OTHER SPECIFIED HEALTH STATUS Status: Acute Current Visit: Yes (4) Volume depletion SNOMED Code(s): 22733067 Code(s): E86.9 - VOLUME DEPLETION, UNSPECIFIED Status: Acute Current Visit: Yes (5) Hyperkalemia SNOMED Code(s): 27542600 Code(s): E87.5 - HYPERKALEMIA Status: Acute Current Visit: Yes (6) Ex-smoker SNOMED Code(s): 3191377 Code(s): Z87.891 - PERSONAL HISTORY OF NICOTINE DEPENDENCE Status: Acute Current Visit: No (7) Leukocytosis SNOMED Code(s): 191095578, 502873539 Code(s): D72.829 - ELEVATED WHITE BLOOD CELL COUNT, UNSPECIFIED Status: Acute Current Visit: No (8) Severe malnutrition SNOMED Code(s): 85624764 Code(s): E43 - UNSPECIFIED SEVERE PROTEIN-CALORIE MALNUTRITION Status: Acute Current Visit: No (9) Advanced COPD SNOMED Code(s): 44322096 Code(s): J44.9 - CHRONIC OBSTRUCTIVE PULMONARY DISEASE, UNSPECIFIED Status : Acute Current Visit: Yes (10) Acute on chronic respiratory failure with hypoxemia SNOMED Code(s): 96247218295587088 Code(s): J96.21 - ACUTE AND CHRONIC RESPIRATORY FAILURE WITH HYPOXIA Status : Acute Current Visit: Yes (11) Cachectic SNOMED Code(s): 517328478 Code(s): R64 - [place]XIA Status: Acute Current Visit: No (12) Glaucoma SNOMED Code(s): 55468962 Code(s): H40.9 - UNSPECIFIED GLAUCOMA Status: Acute Current Visit: Yes (13) Hypercapnic respiratory failure SNOMED Code(s): 651540025 Code(s): J96.92 - RESPIRATORY FAILURE, UNSPECIFIED WITH HYPERCAPNIA Status : Acute Current Visit: Yes (14) Hyperchloremia SNOMED Code(s): 97405573 Code(s): E87.8 - OTH DISORDERS OF ELECTROLYTE AND FLUID BALANCE, NEC Status : Acute Current Visit: Yes (15) Hypernatremia SNOMED Code(s): 527129852 Code(s): E87.0 - HYPEROSMOLALITY AND HYPERNATREMIA Status: Acute Current Visit: Yes (16) Hyperphosphatemia SNOMED Code(s): 71730739 Code(s): E83.39 - OTHER DISORDERS OF PHOSPHORUS METABOLISM Status: Acute Current Visit: Yes (17) Hypokalemia SNOMED Code(s): 34681629 Code(s): E87.6 - HYPOKALEMIA Status: Acute Current Visit: Yes (18) Hypoxemia SNOMED Code(s): 980019138 Code(s): R09.02 - HYPOXEMIA Status: Acute Current Visit: Yes (19) Metabolic alkalosis with respiratory acidosis SNOMED Code(s): 936721197 Code(s): E87.4 - MIXED DISORDER OF ACID-BASE BALANCE Status: Acute Current Visit: Yes (20) Oral candidiasis SNOMED Code(s): 14900042 Code(s): B37.0 - CANDIDAL STOMATITIS Status: Acute Current Visit: Yes (21) Pneumonia SNOMED Code(s): 846846026 Code(s): J18.9 - PNEUMONIA, UNSPECIFIED ORGANISM Status: Acute Current Visit: Yes (22) Tachycardia SNOMED Code(s): 8647543 Code(s): R00.0 - TACHYCARDIA, UNSPECIFIED Status: Acute Current Visit: No (23) Poor tolerance for activity SNOMED Code(s): 532420115 Code(s): Z78.9 - OTHER SPECIFIED HEALTH STATUS Status: Acute Current Visit: Yes - Problem List Review Problem List Initiated/Reviewed/Updated: Yes - Plan Plan:: ASSESSMENT DOA - Worsening SOB x 2 days - Attempted increasing NC rate and nebulization frequency - Unable to ambulate - Admitted on Solumedrol 60mg IV BID, DuoNebs q2h, Budesonide BID, guaifenesin and codeine and Azithromycin - Lactic acid trended up for approximately 10 hours and responded to fluid boluses - Code sepsis code, started on Zosyn, Vancomycin and Levaquin - Hyperkalemia, 5.5, with peak T waves - Insulin, D50 and DuoNeb Day 1 - PaO2 up from 75 to 90 - Peak T waves resolved and K down to 4.2 - Flu swab negative - MRSA negative --> Vancomycin discontinued - Placed on BiPAP in AM - Changed to inpatient - Increased Solumedrol to 60 TID - BP trend 106-140/69-95 - HR trend 108-129 - Tmax 98.2 Day 2 - Rapid response called last night - Patient fell in restroom and hit his head - Immediately after patient was visibly cyanotic, placed on BiPAP - CT head negative - Significantly tachycardic - PE ruled out with CTA chest - Transferred to ICU - Day 3 Zosyn and Levaquin - Increased Solumedrol to 125 TID - Air entry heard only in apex of both lungs - PCO2 >80, BiPAP settings changed - Cherry catheter placed due to patients poor tolerance to movement without decompensating respiratory bender Day 3 - Refusing BiPAP - Leukocytosis resolved, 16.25 to 10.34 - Hypernatremia and hyperchloremia improved with volume repletion - Hyperphosphatemia resolved - Sat > 89% on NC at 2.5L - Tmax 99.1 - Continues to be tachycardic, trend 105-122 Day 4 - Transition antibiotics to PO, Levaquin and Augmentin, day 5 - Decrease Solumedrol to 80mg TID - Accepted at [facility] for placement - UO 2275, 94ml/hr - Tmax 99.1 - BP trend 127-140/71-87 - HR trend 103-114 - Leukocytosis resolved form 10.34 to 9.03 - K down from 4.1 to 3.3 Day 5 - Patient has been refusing more and more services each day - Discussed options of level and goals of care and he still wishes to remain DNR /DNI status - States he is not ready to focus on comfort care yet - BP trend 104-126/65-88 - HR controlled, rate trend 98-101 - Tmax 99.1 - Sat > 92% on 3L NC Day 6 - Still having tachycardia on and off, sinus, trend 94-116 - Labetalol PRN - Amlodipine daily - Started on Nystatin TID - Hypokalemia resolved - GFR stable - Continue antibiotics Day 7 - Significantly improved oxygenation - Clinically audible breath sounds on R lung apex - BP trend 110-137/65-93 - FR trend 95-102 - SatO2 > 92% on 28% FiO2 - Repeat procalcitonin negative - Completed antibiotic regimen Pneumonia COPD exacerbation in the setting of advanced COPD Acute on chronic respiratory failure with hypoxemia Pulmonary cachexia due to chronic obstructive pulmonary disease Leukocytosis, neutrophilia Ex-smoker PLAN - Solumedrol 80 mg IV TID - Decrease frequency of Xopenex - Budesonide BID - Levaquin and Augmentin completed treatment - Scheduled guaifenesin and codeine syrup and Tessalon Perles - Nasal cannula to keep O2sat >88% Oral candidiasis - Continue Nystatin Glaucoma - Continue home medications Hypertension - Continue amlodipine Tachycardia - PRN labetalol Daily consumption of alcohol Drinks at least 1 beer/day, but sometimes up to 5 Last drink was 2 days ago PLAN - Alcohol cessation counseling - Monitor closely for withdrawal Severe malnutrition PLAN - [facility] and high protein ensure - Prealbumin level - B12 level - Vitamin D level - Folic acid level Volume depletion, resolved Hyperkalemia, resolved PROPHYLAXIS DVT- Lovenox GI- not indicated CODE STATUS: DNR/DNI DISPOSITION: Patient will remain admitted to medical floor to continue antibiotics and O2 supplementation SOCIAL ISSUES: Is a Lives alone in a house in [place] Has 2 friends come in and help him out at home with some ADLs at least 4/week Has a nebulizer at home as well as O2
[2019-08-10] MEDS: Lactated Ringers 1,000 ML IV SCH (11:29)
[2019-08-10] MEDS: Simvastatin 20 MG Tab PO SCH (21:31)
[2019-08-10] MEDS: LATANOPROST 0.005% EYERT SCH (21:44)
[2019-08-11] MEDS: Codeine/guaiFENesin 10-100 MG/5 ML Syrup 5 ML Cup PO SCH ×4 (03:51→20:20)
[2019-08-11] MEDS: Levalbuterol HCl 1.25 MG/3 ML Neb NEB SCH ×4 (05:31→21:07)
[2019-08-11] MEDS: Budesonide 0.5 MG/2 ML Neb Susp NEB SCH ×2 (05:31→21:07)
[2019-08-11] MEDS: Lactated Ringers 1,000 ML IV SCH (07:43)
[2019-08-11] MEDS: guaiFENesin 600 MG Tab.ER PO SCH ×2 (08:16→20:19)
[2019-08-11] MEDS: amLODIPine 5 MG Tab PO SCH (08:17)
[2019-08-11] MEDS: Benzonatate 100 MG Cap PO SCH ×3 (08:17→20:19)
[2019-08-11] MEDS: Aspirin 81 MG Tab.EC PO SCH (08:17)
[2019-08-11] MEDS: Enoxaparin 40 MG/0.4 ML Syringe SUBCUT SCH (08:17)
[2019-08-11] MEDS: Thiamine 100 MG Tab PO SCH (08:17)
[2019-08-11] MEDS: methylPREDNISolone Sodium Succinate 40 MG/1 ML SDV IVPUSH SCH ×3 (08:18→20:20)
[2019-08-11] MEDS: DORZOLAMIDE 2% EYERT SCH ×2 (08:18→17:43)
[2019-08-11] MEDS: Brimonidine 0.2% Ophth Soln 15 ML Bottle EYERT SCH ×2 (08:18→17:43)
[2019-08-11] MEDS: Nystatin Susp 100,000 Unit/ML 5 ML Oral Syringe PO SCH ×3 (09:21→20:21)
[2019-08-11] MEDS: Sennosides 8.6 MG Tab PO SCH ×2 (12:19→20:19)
--- NOTE | 2019-08-11 13:24 | PCM.PN ---
- General Info Date of Service: 08/11/19 Subjective Update: BM 08/08 Eating 80-100% 2L NC Slept OK - Patient Data Vitals - Most Recent: Last Vital Signs Temp 97.9 F 08/11/19 08:14 Pulse 90 08/11/19 08:14 Resp 24 H 08/11/19 08:14 BP 143/88 H 08/11/19 08:17 Pulse Ox 88 L 08/11/19 10:36 Weight - Most Recent: 58.695 kg - Exam Quality Assessment: Supplemental Oxygen, Urine Catheter, DVT Prophylaxis, Skin Breakdown. No: Central Line/PICC General: Alert, Oriented, Cooperative, No Acute Distress HEENT: Pupils Equal, Pupils Reactive, EOMI, Mucous Membr. Moist/[place] (missing teeth, white plaques) Neck: Supple, Trachea Midline, No JVD, No Thyromegaly, +2 Carotid Pulse wo Bruit. No: Lymphadenopathy Lungs: Decreased Breath Sounds, Crackles, Wheezing. No: Rales, Rhonchi, Rub, Stridor Cardiovascular: Regular Rate, Regular Rhythm. No: Murmurs, Gallops, Rubs GI/Abdominal Exam: Normal Bowel Sounds, Soft, Non-Tender, No Organomegaly. No: Distended, Guarding, Rigid, Rebound Back Exam: Normal Inspection, Full Range of Motion. No: CVA Tenderness (L), CVA Tenderness (R), Paraspinal Tenderness, Vertebral Tenderness Extremities: Normal Inspection, Non-Tender, No Pedal Edema, Slow Capillary Refill. No: Normal Range of Motion Skin: Dry, Cool Wound/Incisions: Healing Well Neurological: No New Focal Deficit Psy/Mental Status: Alert Sepsis Event Note - Evaluation Sepsis Screening Result: No Definite Risk - Problem List & Annotations (1) COPD exacerbation SNOMED Code(s): 842141654 Code(s): J44.1 - CHRONIC OBSTRUCTIVE PULMONARY DISEASE W (ACUTE) EXACERBATION Status: Acute Current Visit: Yes (2) Pulmonary cachexia due to chronic obstructive pulmonary disease SNOMED Code(s): 915822296 Code(s): J44.9 - CHRONIC OBSTRUCTIVE PULMONARY DISEASE, UNSPECIFIED; R64 - [place] Status: Acute Current Visit: Yes (3) Daily consumption of alcohol SNOMED Code(s): 288516421 Code(s): Z78.9 - OTHER SPECIFIED HEALTH STATUS Status: Acute Current Visit: Yes (4) Volume depletion SNOMED Code(s): 99645128 Code(s): E86.9 - VOLUME DEPLETION, UNSPECIFIED Status: Acute Current Visit: Yes (5) Hyperkalemia SNOMED Code(s): 82974006 Code(s): E87.5 - HYPERKALEMIA Status: Acute Current Visit: Yes (6) Ex-smoker SNOMED Code(s): 1294863 Code(s): Z87.891 - PERSONAL HISTORY OF NICOTINE DEPENDENCE Status: Acute Current Visit: No (7) Leukocytosis SNOMED Code(s): 312604252, 114956829 Code(s): D72.829 - ELEVATED WHITE BLOOD CELL COUNT, UNSPECIFIED Status: Acute Current Visit: No (8) Severe malnutrition SNOMED Code(s): 19990909 Code(s): E43 - UNSPECIFIED SEVERE PROTEIN-CALORIE MALNUTRITION Status: Acute Current Visit: No (9) Advanced COPD SNOMED Code(s): 71689372 Code(s): J44.9 - CHRONIC OBSTRUCTIVE PULMONARY DISEASE, UNSPECIFIED Status : Acute Current Visit: Yes (10) Acute on chronic respiratory failure with hypoxemia SNOMED Code(s): 27246967905453452 Code(s): J96.21 - ACUTE AND CHRONIC RESPIRATORY FAILURE WITH HYPOXIA Status : Acute Current Visit: Yes (11) Cachectic SNOMED Code(s): 665218426 Code(s): R64 - [place] Status: Acute Current Visit: No (12) Glaucoma SNOMED Code(s): 45397023 Code(s): H40.9 - UNSPECIFIED GLAUCOMA Status: Acute Current Visit: Yes (13) Hypercapnic respiratory failure SNOMED Code(s): 934643647 Code(s): J96.92 - RESPIRATORY FAILURE, UNSPECIFIED WITH HYPERCAPNIA Status : Acute Current Visit: Yes (14) Hyperchloremia SNOMED Code(s): 54314617 Code(s): E87.8 - OTH DISORDERS OF ELECTROLYTE AND FLUID BALANCE, NEC Status : Acute Current Visit: Yes (15) Hypernatremia SNOMED Code(s): 380497408 Code(s): E87.0 - HYPEROSMOLALITY AND HYPERNATREMIA Status: Acute Current Visit: Yes (16) Hyperphosphatemia SNOMED Code(s): 73729107 Code(s): E83.39 - OTHER DISORDERS OF PHOSPHORUS METABOLISM Status: Acute Current Visit: Yes (17) Hypokalemia SNOMED Code(s): 04943077 Code(s): E87.6 - HYPOKALEMIA Status: Acute Current Visit: Yes (18) Hypoxemia SNOMED Code(s): 649770986 Code(s): R09.02 - HYPOXEMIA Status: Acute Current Visit: Yes (19) Metabolic alkalosis with respiratory acidosis SNOMED Code(s): 575322579 Code(s): E87.4 - MIXED DISORDER OF ACID-BASE BALANCE Status: Acute Current Visit: Yes (20) Oral candidiasis SNOMED Code(s): 37290217 Code(s): B37.0 - CANDIDAL STOMATITIS Status: Acute Current Visit: Yes (21) Pneumonia SNOMED Code(s): 291358812 Code(s): J18.9 - PNEUMONIA, UNSPECIFIED ORGANISM Status: Acute Current Visit: Yes (22) Tachycardia SNOMED Code(s): 9522889 Code(s): R00.0 - TACHYCARDIA, UNSPECIFIED Status: Acute Current Visit: No (23) Poor tolerance for activity SNOMED Code(s): 661348799 Code(s): Z78.9 - OTHER SPECIFIED HEALTH STATUS Status: Acute Current Visit: Yes - Problem List Review Problem List Initiated/Reviewed/Updated: Yes - Plan Plan:: ASSESSMENT DOA - Worsening SOB x 2 days - Attempted increasing NC rate and nebulization frequency - Unable to ambulate - Admitted on Solumedrol 60mg IV BID, DuoNebs q2h, Budesonide BID, guaifenesin and codeine and Azithromycin - Lactic acid trended up for approximately 10 hours and responded to fluid boluses - Code sepsis code, started on Zosyn, Vancomycin and Levaquin - Hyperkalemia, 5.5, with peak T waves - Insulin, D50 and DuoNeb Day 1 - PaO2 up from 75 to 90 - Peak T waves resolved and K down to 4.2 - Flu swab negative - MRSA negative --> Vancomycin discontinued - Placed on BiPAP in AM - Changed to inpatient - Increased Solumedrol to 60 TID - BP trend 106-140/69-95 - HR trend 108-129 - Tmax 98.2 Day 2 - Rapid response called last night - Patient fell in restroom and hit his head - Immediately after patient was visibly cyanotic, placed on BiPAP - CT head negative - Significantly tachycardic - PE ruled out with CTA chest - Transferred to ICU - Day 3 Zosyn and Levaquin - Increased Solumedrol to 125 TID - Air entry heard only in apex of both lungs - PCO2 >80, BiPAP settings changed - Cherry catheter placed due to patients poor tolerance to movement without decompensating respiratory bender Day 3 - Refusing BiPAP - Leukocytosis resolved, 16.25 to 10.34 - Hypernatremia and hyperchloremia improved with volume repletion - Hyperphosphatemia resolved - Sat > 89% on NC at 2.5L - Tmax 99.1 - Continues to be tachycardic, trend 105-122 Day 4 - Transition antibiotics to PO, Levaquin and Augmentin, day 5 - Decrease Solumedrol to 80mg TID - Accepted at [facility] for placement - UO 2275, 94ml/hr - Tmax 99.1 - BP trend 127-140/71-87 - HR trend 103-114 - Leukocytosis resolved form 10.34 to 9.03 - K down from 4.1 to 3.3 Day 5 - Patient has been refusing more and more services each day - Discussed options of level and goals of care and he still wishes to remain DNR /DNI status - States he is not ready to focus on comfort care yet - BP trend 104-126/65-88 - HR controlled, rate trend 98-101 - Tmax 99.1 - Sat > 92% on 3L NC Day 6 - Still having tachycardia on and off, sinus, trend 94-116 - Labetalol PRN - Amlodipine daily - Started on Nystatin TID - Hypokalemia resolved - GFR stable - Continue antibiotics Day 7 - Significantly improved oxygenation - Clinically audible breath sounds on R lung apex - BP trend 110-137/65-93 - FR trend 95-102 - SatO2 > 92% on 28% FiO2 - Repeat procalcitonin negative - Completed antibiotic regimen Day 8 - Eating 80-100% of diet - Advancing PT from passive range of motion - Decreased Solumedrol dose - Afebrile - Started Senna BID - Peripheral IV , ok to leave in - BP trend 109-123/64-85 - HR trend 93-101 - Tmax 97.1 Pneumonia COPD exacerbation in the setting of advanced COPD Acute on chronic respiratory failure with hypoxemia Pulmonary cachexia due to chronic obstructive pulmonary disease Leukocytosis, neutrophilia Ex-smoker PLAN - Solumedrol 80 mg IV TID - Decrease frequency of Xopenex - Budesonide BID - Scheduled guaifenesin and codeine syrup and Tessalon Perles - Nasal cannula to keep O2sat >88% Oral candidiasis - Continue Nystatin Glaucoma - Continue home medications Hypertension - Continue amlodipine Tachycardia - PRN labetalol Daily consumption of alcohol Drinks at least 1 beer/day, but sometimes up to 5 Last drink was 2 days ago PLAN - Alcohol cessation counseling - Monitor closely for withdrawal Severe malnutrition PLAN - Follow up dietary recommendations - High protein ensure - Prealbumin level - B12 level - Vitamin D level - Folic acid level Volume depletion, resolved Hyperkalemia, resolved PROPHYLAXIS DVT- Lovenox GI- not indicated CODE STATUS: DNR/DNI DISPOSITION: Patient will remain admitted to medical floor to continue antibiotics and O2 supplementation. Length of stay greater than 96 hours due to suboptimal response to treatment. PT/OT recommending SNF, [facility] has accepted patient. SOCIAL ISSUES: Is a Lives alone in a house in [place] Has 2 friends come in and help him out at home with some ADLs at least 4/week Has a nebulizer at home as well as O2
[2019-08-11] MEDS: Simvastatin 20 MG Tab PO SCH (20:20)
[2019-08-11] MEDS: LATANOPROST 0.005% EYERT SCH (20:26)
[2019-08-12] MEDS: Lactated Ringers 1,000 ML IV SCH (03:38)
[2019-08-12] MEDS: Codeine/guaiFENesin 10-100 MG/5 ML Syrup 5 ML Cup PO SCH ×4 (03:39→20:54)
[2019-08-12] MEDS: Budesonide 0.5 MG/2 ML Neb Susp NEB SCH ×2 (05:35→21:11)
[2019-08-12] MEDS: Levalbuterol HCl 1.25 MG/3 ML Neb NEB SCH ×4 (05:35→21:11)
[2019-08-12] MEDS: Nystatin Susp 100,000 Unit/ML 5 ML Oral Syringe PO SCH ×3 (08:29→20:53)
[2019-08-12] MEDS: methylPREDNISolone Sodium Succinate 40 MG/1 ML SDV IVPUSH SCH (08:29)
[2019-08-12] MEDS: Sennosides 8.6 MG Tab PO SCH ×2 (08:29→20:53)
[2019-08-12] MEDS: amLODIPine 5 MG Tab PO SCH (08:30)
[2019-08-12] MEDS: guaiFENesin 600 MG Tab.ER PO SCH ×2 (08:30→20:53)
[2019-08-12] MEDS: Thiamine 100 MG Tab PO SCH (08:30)
[2019-08-12] MEDS: Benzonatate 100 MG Cap PO SCH ×3 (08:30→20:53)
[2019-08-12] MEDS: Brimonidine 0.2% Ophth Soln 15 ML Bottle EYERT SCH ×2 (08:30→17:32)
[2019-08-12] MEDS: Aspirin 81 MG Tab.EC PO SCH (08:30)
[2019-08-12] MEDS: Enoxaparin 40 MG/0.4 ML Syringe SUBCUT SCH (08:30)
[2019-08-12] MEDS: DORZOLAMIDE 2% EYERT SCH ×2 (08:52→17:32)
--- NOTE | 2019-08-12 14:39 | PCM.PN ---
- General Info Date of Service: 08/12/19 Subjective Update: BM today Drinking 50% of Ensure Refused therapies yesterday - Patient Data Vitals - Most Recent: Last Vital Signs Temp 97.3 F 08/12/19 03:45 Pulse 115 H 08/12/19 08:56 Resp 20 08/12/19 08:26 BP 147/96 H 08/12/19 08:30 Pulse Ox 93 L 08/12/19 08:59 Weight - Most Recent: 59.511 kg - Exam Quality Assessment: Supplemental Oxygen, DVT Prophylaxis, Skin Breakdown. No: Central Line/PICC, Urine Catheter General: Alert, Oriented, Cooperative, No Acute Distress HEENT: Pupils Equal, Pupils Reactive, EOMI, Mucous Membr. Moist/[place], Other ( eyes sunken in, ecchymosis improving) Neck: Supple, Trachea Midline, No JVD, No Thyromegaly, +2 Carotid Pulse wo Bruit. No: Lymphadenopathy Lungs: Decreased Breath Sounds, Crackles, Wheezing, Other. No: Rales, Rhonchi, Rub, Stridor Cardiovascular: Regular Rate, Regular Rhythm. No: Murmurs, Gallops, Rubs GI/Abdominal Exam: Normal Bowel Sounds, Soft, Non-Tender. No: Distended, Guarding, Rigid, Rebound Back Exam: Normal Inspection, Other (severe muscle wasting). No: CVA Tenderness (L), CVA Tenderness (R), Paraspinal Tenderness, Vertebral Tenderness Extremities: Non-Tender, No Pedal Edema, Slow Capillary Refill Neurological: No New Focal Deficit Psy/Mental Status: Alert, Normal Affect Sepsis Event Note - Evaluation Sepsis Screening Result: No Definite Risk - Problem List & Annotations (1) COPD exacerbation SNOMED Code(s): 508870306 Code(s): J44.1 - CHRONIC OBSTRUCTIVE PULMONARY DISEASE W (ACUTE) EXACERBATION Status: Acute Current Visit: Yes (2) Pulmonary cachexia due to chronic obstructive pulmonary disease SNOMED Code(s): 952945272 Code(s): J44.9 - CHRONIC OBSTRUCTIVE PULMONARY DISEASE, UNSPECIFIED; R64 - CACHEXIA Status: Acute Current Visit: Yes (3) Daily consumption of alcohol SNOMED Code(s): 489360073 Code(s): Z78.9 - OTHER SPECIFIED HEALTH STATUS Status: Acute Current Visit: Yes (4) Volume depletion SNOMED Code(s): 82253125 Code(s): E86.9 - VOLUME DEPLETION, UNSPECIFIED Status: Acute Current Visit: Yes (5) Hyperkalemia SNOMED Code(s): 55578854 Code(s): E87.5 - HYPERKALEMIA Status: Acute Current Visit: Yes (6) Ex-smoker SNOMED Code(s): 4304349 Code(s): Z87.891 - PERSONAL HISTORY OF NICOTINE DEPENDENCE Status: Acute Current Visit: No (7) Leukocytosis SNOMED Code(s): 441043157, 214731921 Code(s): D72.829 - ELEVATED WHITE BLOOD CELL COUNT, UNSPECIFIED Status: Acute Current Visit: No (8) Severe malnutrition SNOMED Code(s): 63511914 Code(s): E43 - UNSPECIFIED SEVERE PROTEIN-CALORIE MALNUTRITION Status: Acute Current Visit: No (9) Advanced COPD SNOMED Code(s): 64922130 Code(s): J44.9 - CHRONIC OBSTRUCTIVE PULMONARY DISEASE, UNSPECIFIED Status : Acute Current Visit: Yes (10) Acute on chronic respiratory failure with hypoxemia SNOMED Code(s): 59509296443222687 Code(s): J96.21 - ACUTE AND CHRONIC RESPIRATORY FAILURE WITH HYPOXIA Status : Acute Current Visit: Yes (11) Cachectic SNOMED Code(s): 023876184 Code(s): R64 - [place]XIA Status: Acute Current Visit: No (12) Glaucoma SNOMED Code(s): 35954827 Code(s): H40.9 - UNSPECIFIED GLAUCOMA Status: Acute Current Visit: Yes (13) Hypercapnic respiratory failure SNOMED Code(s): 176156230 Code(s): J96.92 - RESPIRATORY FAILURE, UNSPECIFIED WITH HYPERCAPNIA Status : Acute Current Visit: Yes (14) Hyperchloremia SNOMED Code(s): 39884005 Code(s): E87.8 - OTH DISORDERS OF ELECTROLYTE AND FLUID BALANCE, NEC Status : Acute Current Visit: Yes (15) Hypernatremia SNOMED Code(s): 580781058 Code(s): E87.0 - HYPEROSMOLALITY AND HYPERNATREMIA Status: Acute Current Visit: Yes (16) Hyperphosphatemia SNOMED Code(s): 02721852 Code(s): E83.39 - OTHER DISORDERS OF PHOSPHORUS METABOLISM Status: Acute Current Visit: Yes (17) Hypokalemia SNOMED Code(s): 89127343 Code(s): E87.6 - HYPOKALEMIA Status: Acute Current Visit: Yes (18) Hypoxemia SNOMED Code(s): 753555090 Code(s): R09.02 - HYPOXEMIA Status: Acute Current Visit: Yes (19) Metabolic alkalosis with respiratory acidosis SNOMED Code(s): 867803845 Code(s): E87.4 - MIXED DISORDER OF ACID-BASE BALANCE Status: Acute Current Visit: Yes (20) Oral candidiasis SNOMED Code(s): 41484662 Code(s): B37.0 - CANDIDAL STOMATITIS Status: Acute Current Visit: Yes (21) Pneumonia SNOMED Code(s): 136949579 Code(s): J18.9 - PNEUMONIA, UNSPECIFIED ORGANISM Status: Acute Current Visit: Yes (22) Tachycardia SNOMED Code(s): 9518800 Code(s): R00.0 - TACHYCARDIA, UNSPECIFIED Status: Acute Current Visit: No (23) Poor tolerance for activity SNOMED Code(s): 099856548 Code(s): Z78.9 - OTHER SPECIFIED HEALTH STATUS Status: Acute Current Visit: Yes - Problem List Review Problem List Initiated/Reviewed/Updated: Yes - Plan Plan:: ASSESSMENT DOA - Worsening SOB x 2 days - Attempted increasing NC rate and nebulization frequency - Unable to ambulate - Admitted on Solumedrol 60mg IV BID, DuoNebs q2h, Budesonide BID, guaifenesin and codeine and Azithromycin - Lactic acid trended up for approximately 10 hours and responded to fluid boluses - Code sepsis code, started on Zosyn, Vancomycin and Levaquin - Hyperkalemia, 5.5, with peak T waves - Insulin, D50 and DuoNeb Day 1 - PaO2 up from 75 to 90 - Peak T waves resolved and K down to 4.2 - Flu swab negative - MRSA negative --> Vancomycin discontinued - Placed on BiPAP in AM - Changed to inpatient - Increased Solumedrol to 60 TID - BP trend 106-140/69-95 - HR trend 108-129 - Tmax 98.2 Day 2 - Rapid response called last night - Patient fell in restroom and hit his head - Immediately after patient was visibly cyanotic, placed on BiPAP - CT head negative - Significantly tachycardic - PE ruled out with CTA chest - Transferred to ICU - Day 3 Zosyn and Levaquin - Increased Solumedrol to 125 TID - Air entry heard only in apex of both lungs - PCO2 >80, BiPAP settings changed - Cherry catheter placed due to patients poor tolerance to movement without decompensating respiratory bender Day 3 - Refusing BiPAP - Leukocytosis resolved, 16.25 to 10.34 - Hypernatremia and hyperchloremia improved with volume repletion - Hyperphosphatemia resolved - Sat > 89% on NC at 2.5L - Tmax 99.1 - Continues to be tachycardic, trend 105-122 Day 4 - Transition antibiotics to PO, Levaquin and Augmentin, day 5 - Decrease Solumedrol to 80mg TID - Accepted at [facility] for placement - UO 2275, 94ml/hr - Tmax 99.1 - BP trend 127-140/71-87 - HR trend 103-114 - Leukocytosis resolved form 10.34 to 9.03 - K down from 4.1 to 3.3 Day 5 - Patient has been refusing more and more services each day - Discussed options of level and goals of care and he still wishes to remain DNR /DNI status - States he is not ready to focus on comfort care yet - BP trend 104-126/65-88 - HR controlled, rate trend 98-101 - Tmax 99.1 - Sat > 92% on 3L NC Day 6 - Still having tachycardia on and off, sinus, trend 94-116 - Labetalol PRN - Amlodipine daily - Started on Nystatin TID - Hypokalemia resolved - GFR stable - Continue antibiotics Day 7 - Significantly improved oxygenation - Clinically audible breath sounds on R lung apex - BP trend 110-137/65-93 - FR trend 95-102 - SatO2 > 92% on 28% FiO2 - Repeat procalcitonin negative - Completed antibiotic regimen Day 8 - Physical exam significantly improved, there is audible air entry on BL posterior lung ho - Patient appears less short of breath - Refused therapies yesterday, discussed importance of compliance to reduce length of stay - PT/OT still recommending SNF - Transitioned Solumedrol to Prednisone at 75% of dose, 80mg BID - DC IV fluids - Discontinued Chrery catheter and patient voided without any difficulties - 4L on activity and 2L at rest - BP trend 101-148/70-88, controlled Pneumonia, improved COPD exacerbation in the setting of advanced COPD, improved Acute on chronic respiratory failure with hypoxemia, back at baseline Pulmonary cachexia due to chronic obstructive pulmonary disease Leukocytosis, neutrophilia, improved Ex-smoker PLAN - Prednisone 80mg BID - Continue Xopenex and Budesonide as well as guaifenesin and Tessalon Perles - Nasal cannula to keep O2sat >88% Oral candidiasis - Continue Nystatin Glaucoma - Continue home medications Hypertension - Continue amlodipine Tachycardia - PRN labetalol Daily consumption of alcohol Drinks at least 1 beer/day, but sometimes up to 5 Last drink was 2 days ago PLAN - Alcohol cessation counseling - Monitor closely for withdrawal Severe malnutrition PLAN - Follow up with dietary recommendations - Discuss importance of drinking all supplements ordered - Advance PT as tolerated Volume depletion, resolved Hyperkalemia, resolved PROPHYLAXIS DVT- Lovenox GI- not indicated CODE STATUS: DNR/DNI DISPOSITION: Patient will remain admitted to medical floor to continue antibiotics and O2 supplementation. Significantly improved, PT recommending SNF, [facility] has accepted his care. SOCIAL ISSUES: Is a Lives alone in a house in [place] Has 2 friends come in and help him out at home with some ADLs at least 4/week Has a nebulizer at home as well as O2
[2019-08-12] MEDS: predniSONE 20 MG Tab PO SCH (20:53)
[2019-08-12] MEDS: Simvastatin 20 MG Tab PO SCH (20:53)
[2019-08-12] MEDS: LATANOPROST 0.005% EYERT SCH (21:15)
[2019-08-13] MEDS: Codeine/guaiFENesin 10-100 MG/5 ML Syrup 5 ML Cup PO SCH ×2 (03:16→09:43)
[2019-08-13] MEDS: Budesonide 0.5 MG/2 ML Neb Susp NEB SCH ×2 (05:40→22:08)
[2019-08-13] MEDS: Levalbuterol HCl 1.25 MG/3 ML Neb NEB SCH ×4 (05:40→22:09)
[2019-08-13] MEDS: amLODIPine 5 MG Tab PO SCH (09:41)
[2019-08-13] MEDS: Sennosides 8.6 MG Tab PO SCH ×2 (09:41→20:35)
[2019-08-13] MEDS: Aspirin 81 MG Tab.EC PO SCH (09:41)
[2019-08-13] MEDS: Benzonatate 100 MG Cap PO SCH ×3 (09:41→20:34)
[2019-08-13] MEDS: Enoxaparin 40 MG/0.4 ML Syringe SUBCUT SCH (09:42)
[2019-08-13] MEDS: predniSONE 20 MG Tab PO SCH ×2 (09:42→20:34)
[2019-08-13] MEDS: Nystatin Susp 100,000 Unit/ML 5 ML Oral Syringe PO SCH ×3 (09:42→20:34)
[2019-08-13] MEDS: Thiamine 100 MG Tab PO SCH (09:42)
[2019-08-13] MEDS: guaiFENesin 600 MG Tab.ER PO SCH ×2 (09:42→20:34)
[2019-08-13] MEDS: Brimonidine 0.2% Ophth Soln 15 ML Bottle EYERT SCH ×2 (09:42→17:03)
[2019-08-13] MEDS: DORZOLAMIDE 2% EYERT SCH ×2 (09:44→17:03)
[2019-08-13] MEDS ORDERED: predniSONE 20 MG Tab PO SCH (11:20)
--- NOTE | 2019-08-13 17:00 | PCM.PN ---
- General Info Date of Service: 08/13/19 Subjective Update: BM today Eating about 760 calories Slept OK Refusing PT - Patient Data Vitals - Most Recent: Last Vital Signs Temp 97.7 F 08/13/19 15:25 Pulse 98 08/13/19 15:25 Resp 16 08/13/19 15:25 BP 104/79 08/13/19 15:25 Pulse Ox 94 L 08/13/19 16:29 Weight - Most Recent: 61.552 kg - Exam Quality Assessment: Supplemental Oxygen, Skin Breakdown. No: Central Line/PICC , Urine Catheter General: Alert, Oriented, Cooperative, Mild Distress HEENT: Pupils Equal, Pupils Reactive, Mucous Membr. Moist/[place], Other (eyes sunken in, bilateral temporal wasting) Neck: Supple, Trachea Midline, No JVD, No Thyromegaly, +2 Carotid Pulse wo Bruit. No: Lymphadenopathy Lungs: Decreased Breath Sounds, Wheezing (end expiratory). No: Crackles, Rales , Rhonchi, Rub, Stridor Cardiovascular: Regular Rate, Regular Rhythm. No: Murmurs, Gallops, Rubs GI/Abdominal Exam: Normal Bowel Sounds, Soft, Non-Tender. No: Distended, Guarding, Rigid, Rebound Back Exam: Other (muscle wasting, obvious intercostal retractions with inspiration) Extremities: Non-Tender, No Pedal Edema, Slow Capillary Refill Skin: Dry, Cool Neurological: No New Focal Deficit Sepsis Event Note - Evaluation Sepsis Screening Result: No Definite Risk - Problem List & Annotations (1) COPD exacerbation SNOMED Code(s): 458515125 Code(s): J44.1 - CHRONIC OBSTRUCTIVE PULMONARY DISEASE W (ACUTE) EXACERBATION Status: Acute Current Visit: Yes (2) Pulmonary cachexia due to chronic obstructive pulmonary disease SNOMED Code(s): 709071911 Code(s): J44.9 - CHRONIC OBSTRUCTIVE PULMONARY DISEASE, UNSPECIFIED; R64 - [place] Status: Acute Current Visit: Yes (3) Daily consumption of alcohol SNOMED Code(s): 151178253 Code(s): Z78.9 - OTHER SPECIFIED HEALTH STATUS Status: Acute Current Visit: Yes (4) Volume depletion SNOMED Code(s): 08878123 Code(s): E86.9 - VOLUME DEPLETION, UNSPECIFIED Status: Acute Current Visit: Yes (5) Hyperkalemia SNOMED Code(s): 88691901 Code(s): E87.5 - HYPERKALEMIA Status: Acute Current Visit: Yes (6) Ex-smoker SNOMED Code(s): 9251890 Code(s): Z87.891 - PERSONAL HISTORY OF NICOTINE DEPENDENCE Status: Acute Current Visit: No (7) Leukocytosis SNOMED Code(s): 888346650, 336580914 Code(s): D72.829 - ELEVATED WHITE BLOOD CELL COUNT, UNSPECIFIED Status: Acute Current Visit: No (8) Severe malnutrition SNOMED Code(s): 31059885 Code(s): E43 - UNSPECIFIED SEVERE PROTEIN-CALORIE MALNUTRITION Status: Acute Current Visit: No (9) Advanced COPD SNOMED Code(s): 50839068 Code(s): J44.9 - CHRONIC OBSTRUCTIVE PULMONARY DISEASE, UNSPECIFIED Status : Acute Current Visit: Yes (10) Acute on chronic respiratory failure with hypoxemia SNOMED Code(s): 81335144966210516 Code(s): J96.21 - ACUTE AND CHRONIC RESPIRATORY FAILURE WITH HYPOXIA Status : Acute Current Visit: Yes (11) Cachectic SNOMED Code(s): 792390940 Code(s): R64 - [place] Status: Acute Current Visit: No (12) Glaucoma SNOMED Code(s): 33048769 Code(s): H40.9 - UNSPECIFIED GLAUCOMA Status: Acute Current Visit: Yes (13) Hypercapnic respiratory failure SNOMED Code(s): 846096437 Code(s): J96.92 - RESPIRATORY FAILURE, UNSPECIFIED WITH HYPERCAPNIA Status : Acute Current Visit: Yes (14) Hyperchloremia SNOMED Code(s): 98316108 Code(s): E87.8 - OTH DISORDERS OF ELECTROLYTE AND FLUID BALANCE, NEC Status : Acute Current Visit: Yes (15) Hypernatremia SNOMED Code(s): 972070950 Code(s): E87.0 - HYPEROSMOLALITY AND HYPERNATREMIA Status: Acute Current Visit: Yes (16) Hyperphosphatemia SNOMED Code(s): 26132188 Code(s): E83.39 - OTHER DISORDERS OF PHOSPHORUS METABOLISM Status: Acute Current Visit: Yes (17) Hypokalemia SNOMED Code(s): 47845387 Code(s): E87.6 - HYPOKALEMIA Status: Acute Current Visit: Yes (18) Hypoxemia SNOMED Code(s): 832966907 Code(s): R09.02 - HYPOXEMIA Status: Acute Current Visit: Yes (19) Metabolic alkalosis with respiratory acidosis SNOMED Code(s): 330121615 Code(s): E87.4 - MIXED DISORDER OF ACID-BASE BALANCE Status: Acute Current Visit: Yes (20) Oral candidiasis SNOMED Code(s): 56208739 Code(s): B37.0 - CANDIDAL STOMATITIS Status: Acute Current Visit: Yes (21) Pneumonia SNOMED Code(s): 803078823 Code(s): J18.9 - PNEUMONIA, UNSPECIFIED ORGANISM Status: Acute Current Visit: Yes (22) Tachycardia SNOMED Code(s): 1012205 Code(s): R00.0 - TACHYCARDIA, UNSPECIFIED Status: Acute Current Visit: No (23) Poor tolerance for activity SNOMED Code(s): 233742513 Code(s): Z78.9 - OTHER SPECIFIED HEALTH STATUS Status: Acute Current Visit: Yes - Problem List Review Problem List Initiated/Reviewed/Updated: Yes - Plan Plan:: ASSESSMENT DOA - Worsening SOB x 2 days - Attempted increasing NC rate and nebulization frequency - Unable to ambulate - Admitted on Solumedrol 60mg IV BID, DuoNebs q2h, Budesonide BID, guaifenesin and codeine and Azithromycin - Lactic acid trended up for approximately 10 hours and responded to fluid boluses - Code sepsis code, started on Zosyn, Vancomycin and Levaquin - Hyperkalemia, 5.5, with peak T waves - Insulin, D50 and DuoNeb Day 1 - PaO2 up from 75 to 90 - Peak T waves resolved and K down to 4.2 - Flu swab negative - MRSA negative --> Vancomycin discontinued - Placed on BiPAP in AM - Changed to inpatient - Increased Solumedrol to 60 TID - BP trend 106-140/69-95 - HR trend 108-129 - Tmax 98.2 Day 2 - Rapid response called last night - Patient fell in restroom and hit his head - Immediately after patient was visibly cyanotic, placed on BiPAP - CT head negative - Significantly tachycardic - PE ruled out with CTA chest - Transferred to ICU - Day 3 Zosyn and Levaquin - Increased Solumedrol to 125 TID - Air entry heard only in apex of both lungs - PCO2 >80, BiPAP settings changed - Cherry catheter placed due to patients poor tolerance to movement without decompensating respiratory bender Day 3 - Refusing BiPAP - Leukocytosis resolved, 16.25 to 10.34 - Hypernatremia and hyperchloremia improved with volume repletion - Hyperphosphatemia resolved - Sat > 89% on NC at 2.5L - Tmax 99.1 - Continues to be tachycardic, trend 105-122 Day 4 - Transition antibiotics to PO, Levaquin and Augmentin, day 5 - Decrease Solumedrol to 80mg TID - Accepted at [facility] for [facility] - UO 2275, 94ml/hr - Tmax 99.1 - BP trend 127-140/71-87 - HR trend 103-114 - Leukocytosis resolved form 10.34 to 9.03 - K down from 4.1 to 3.3 Day 5 - Patient has been refusing more and more services each day - Discussed options of level and goals of care and he still wishes to remain DNR /DNI status - States he is not ready to focus on comfort care yet - BP trend 104-126/65-88 - HR controlled, rate trend 98-101 - Tmax 99.1 - Sat > 92% on 3L NC Day 6 - Still having tachycardia on and off, sinus, trend 94-116 - Labetalol PRN - Amlodipine daily - Started on Nystatin TID - Hypokalemia resolved - GFR stable - Continue antibiotics Day 7 - Significantly improved oxygenation - Clinically audible breath sounds on R lung apex - BP trend 110-137/65-93 - FR trend 95-102 - SatO2 > 92% on 28% FiO2 - Repeat procalcitonin negative - Completed antibiotic regimen Day 8 - Physical exam significantly improved, there is audible air entry on BL posterior lung ho - Patient appears less short of breath - Refused therapies yesterday, discussed importance of compliance to reduce length of stay - PT/OT still recommending SNF - Transitioned Solumedrol to Prednisone at 75% of dose, 80mg BID - DC IV fluids - Discontinued Cherry catheter and patient voided without any difficulties - 4L on activity and 2L at rest - BP trend 101-148/70-88, controlled Day 9 - Refusing to drink supplements and is ingesting very small amount of calories, dietary will evaluate how to increase caloric intake - Cough is improved and physical exam with significant improvement - He is however refusing to work with PT so sitting on side of bed to eat breakfast drops his sats and requires increase in O2 rate - He has been accepted in [place] but they do not have a bes - 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 if there are other places he is willing to go to - Tolerating steroid taper - BP trend 123-147/74-96 - HR trend 78-117 - Sat > 92% on 2L at rest and $ on activity - Tmax 97.9 Pneumonia, improved COPD exacerbation in the setting of advanced COPD, improved Acute on chronic respiratory failure with hypoxemia, back at baseline Pulmonary cachexia due to chronic obstructive pulmonary disease Leukocytosis, neutrophilia, improved Ex-smoker - Tessalon TID - Xopenex and Budesonide scheduled - Discontinue Robitussin AC - Taper down prednisone to 60BID - Nasal cannula to keep O2sat >88% Oral candidiasis - Continue Nystatin, day 4 (started 08/08) Glaucoma - Continue home medications Hypertension - Continue amlodipine Tachycardia - PRN labetalol Severe malnutrition - Ensure TID - Follow up with dietary recommendations - Discuss importance of drinking all supplements ordered - Advance PT as tolerated Volume depletion, resolved Hyperkalemia, resolved PROPHYLAXIS DVT- Lovenox GI- not indicated CODE STATUS: DNR/DNI DISPOSITION: Patient will remain admitted to medical floor to continue breathing treatments and prednisone taper, getting better daily, should be able to be discharged in 24-72h Significantly improved, PT recommending SNF. SOCIAL ISSUES: Is a Lives alone in a house in [place] Has 2 friends come in and help him out at home with some ADLs at least 4/week Has a nebulizer at home as well as O2
[2019-08-13] MEDS: Simvastatin 20 MG Tab PO SCH (20:34)
[2019-08-13] MEDS: LATANOPROST 0.005% EYERT SCH (20:35)
[2019-08-14] MEDS: Budesonide 0.5 MG/2 ML Neb Susp NEB SCH (06:02)
[2019-08-14] MEDS: Levalbuterol HCl 1.25 MG/3 ML Neb NEB SCH ×2 (06:02→09:08)
[2019-08-14] MEDS: predniSONE 20 MG Tab PO SCH (08:28)
[2019-08-14] MEDS: amLODIPine 5 MG Tab PO SCH (08:28)
[2019-08-14] MEDS: Thiamine 100 MG Tab PO SCH (08:28)
[2019-08-14] MEDS: Benzonatate 100 MG Cap PO SCH (08:28)
[2019-08-14] MEDS: guaiFENesin 600 MG Tab.ER PO SCH (08:28)
[2019-08-14] MEDS: Aspirin 81 MG Tab.EC PO SCH (08:28)
[2019-08-14] MEDS: Sennosides 8.6 MG Tab PO SCH (08:29)
[2019-08-14] MEDS: Brimonidine 0.2% Ophth Soln 15 ML Bottle EYERT SCH (08:29)
[2019-08-14] MEDS: Enoxaparin 40 MG/0.4 ML Syringe SUBCUT SCH (08:29)
[2019-08-14] MEDS: Nystatin Susp 100,000 Unit/ML 5 ML Oral Syringe PO SCH (08:29)
[2019-08-14] MEDS: DORZOLAMIDE 2% EYERT SCH (08:29)
--- NOTE | 2019-08-14 08:30 | PCM.DCSUM1 ---
Discharge Summary - Hospital Course HPI Initial Comments: This is a 74 year old male with past medical history of severe COPD who comes to the ED complaining of worsening shortness of breath for 4 days but significantly worsened in the past 2 days. As per patient he gauges his disease activity with how long it takes him to get dressed, normally its 20 minutes and recently has needed up to 1-1:30 hours He states he has needed to increase his home O2 from 2L at rest to 4L Denies any worsening cough, sputum , fever, chills, chest pain, pleuritic chest pain, palpitations, near syncope Endorses 4lb weight loss in the past couple of days due to decreased appetite Once he noticed he wasn't getting better and yesterday was unable to even get out of bed he decided to come in for further evaluation Of note patient states that he checks his O2 sats frequently at home which normally ranges 95-96% however during the night he drops to 82-84% Diagnosis: Stroke: No - Discharge Data Discharge Date: 08/14/19 Discharge Disposition: DC/Tfer to SNF 03 Condition: Good - Referral to Home Health Primary Care Physician: Sarahy Grey MD - Discharge Diagnosis/Problem(s) (1) COPD exacerbation SNOMED Code(s): 083735558 ICD Code: J44.1 - CHRONIC OBSTRUCTIVE PULMONARY DISEASE W (ACUTE) EXACERBATION Status: Acute Current Visit: Yes (2) Pulmonary cachexia due to chronic obstructive pulmonary disease SNOMED Code(s): 464449820 ICD Code: J44.9 - CHRONIC OBSTRUCTIVE PULMONARY DISEASE, UNSPECIFIED; R64 - CACHEXIA Status: Acute Current Visit: Yes (3) Daily consumption of alcohol SNOMED Code(s): 636067748 ICD Code: Z78.9 - OTHER SPECIFIED HEALTH STATUS Status: Acute Current Visit: Yes (4) Volume depletion SNOMED Code(s): 39284934 ICD Code: E86.9 - VOLUME DEPLETION, UNSPECIFIED Status: Acute Current Visit: Yes (5) Hyperkalemia SNOMED Code(s): 49469215 ICD Code: E87.5 - HYPERKALEMIA Status: Acute Current Visit: Yes (6) Ex-smoker SNOMED Code(s): 4724287 ICD Code: Z87.891 - PERSONAL HISTORY OF NICOTINE DEPENDENCE Status: Acute Current Visit: No (7) Leukocytosis SNOMED Code(s): 815618885, 575496703 ICD Code: D72.829 - ELEVATED WHITE BLOOD CELL COUNT, UNSPECIFIED Status: Acute Current Visit: No (8) Severe malnutrition SNOMED Code(s): 83780811 ICD Code: E43 - UNSPECIFIED SEVERE PROTEIN-CALORIE MALNUTRITION Status: Acute Current Visit: No (9) Advanced COPD SNOMED Code(s): 87601900 ICD Code: J44.9 - CHRONIC OBSTRUCTIVE PULMONARY DISEASE, UNSPECIFIED Status : Acute Current Visit: Yes (10) Acute on chronic respiratory failure with hypoxemia SNOMED Code(s): 72835964552362222 ICD Code: J96.21 - ACUTE AND CHRONIC RESPIRATORY FAILURE WITH HYPOXIA Status: Acute Current Visit: Yes (11) Cachectic SNOMED Code(s): 308438491 ICD Code: R64 - [place] Status: Acute Current Visit: No (12) Glaucoma SNOMED Code(s): 03325729 ICD Code: H40.9 - UNSPECIFIED GLAUCOMA Status: Acute Current Visit: Yes (13) Hypercapnic respiratory failure SNOMED Code(s): 584909316 ICD Code: J96.92 - RESPIRATORY FAILURE, UNSPECIFIED WITH HYPERCAPNIA Status : Acute Current Visit: Yes (14) Hyperchloremia SNOMED Code(s): 19352143 ICD Code: E87.8 - OTH DISORDERS OF ELECTROLYTE AND FLUID BALANCE, NEC Status: Acute Current Visit: Yes (15) Hypernatremia SNOMED Code(s): 281453677 ICD Code: E87.0 - HYPEROSMOLALITY AND HYPERNATREMIA Status: Acute Current Visit: Yes (16) Hyperphosphatemia SNOMED Code(s): 10733670 ICD Code: E83.39 - OTHER DISORDERS OF PHOSPHORUS METABOLISM Status: Acute Current Visit: Yes (17) Hypokalemia SNOMED Code(s): 27710143 ICD Code: E87.6 - HYPOKALEMIA Status: Acute Current Visit: Yes (18) Hypoxemia SNOMED Code(s): 902450059 ICD Code: R09.02 - HYPOXEMIA Status: Acute Current Visit: Yes (19) Metabolic alkalosis with respiratory acidosis SNOMED Code(s): 717043684 ICD Code: E87.4 - MIXED DISORDER OF ACID-BASE BALANCE Status: Acute Current Visit: Yes (20) Oral candidiasis SNOMED Code(s): 52588095 ICD Code: B37.0 - CANDIDAL STOMATITIS Status: Acute Current Visit: Yes (21) Pneumonia SNOMED Code(s): 287734312 ICD Code: J18.9 - PNEUMONIA, UNSPECIFIED ORGANISM Status: Acute Current Visit: Yes (22) Tachycardia SNOMED Code(s): 2046179 ICD Code: R00.0 - TACHYCARDIA, UNSPECIFIED Status: Acute Current Visit: No (23) Poor tolerance for activity SNOMED Code(s): 878048687 ICD Code: Z78.9 - OTHER SPECIFIED HEALTH STATUS Status: Acute Current Visit: Yes - Patient Summary/Data Consults: Consultations 08/11/19 10:27 PT Evaluation and Treatment [CONS] Routine 08/11/19 10:28 OT Evaluation and Treatment [CONS] Routine Hospital Course: DOA - Worsening SOB x 2 days - Attempted increasing NC rate and nebulization frequency - Unable to ambulate - Admitted on Solumedrol 60mg IV BID, DuoNebs q2h, Budesonide BID, guaifenesin and codeine and Azithromycin - Lactic acid trended up for approximately 10 hours and responded to fluid boluses - Code sepsis code, started on Zosyn, Vancomycin and Levaquin - Hyperkalemia, 5.5, with peak T waves - Insulin, D50 and DuoNeb Day 1 - PaO2 up from 75 to 90 - Peak T waves resolved and K down to 4.2 - Flu swab negative - MRSA negative --> Vancomycin discontinued - Placed on BiPAP in AM - Changed to inpatient - Increased Solumedrol to 60 TID - BP trend 106-140/69-95 - HR trend 108-129 - Tmax 98.2 Day 2 - Rapid response called last night - Patient fell in restroom and hit his head - Immediately after patient was visibly cyanotic, placed on BiPAP - CT head negative - Significantly tachycardic - PE ruled out with CTA chest - Transferred to ICU - Day 3 Zosyn and Levaquin - Increased Solumedrol to 125 TID - Air entry heard only in apex of both lungs - PCO2 >80, BiPAP settings changed - Cherry catheter placed due to patients poor tolerance to movement without decompensating respiratory bender Day 3 - Refusing BiPAP - Leukocytosis resolved, 16.25 to 10.34 - Hypernatremia and hyperchloremia improved with volume repletion - Hyperphosphatemia resolved - Sat > 89% on NC at 2.5L - Tmax 99.1 - Continues to be tachycardic, trend 105-122 Day 4 - Transition antibiotics to PO, Levaquin and Augmentin, day 5 - Decrease Solumedrol to 80mg TID - Accepted at [facility] for placement - UO 2275, 94ml/hr - Tmax 99.1 - BP trend 127-140/71-87 - HR trend 103-114 - Leukocytosis resolved form 10.34 to 9.03 - K down from 4.1 to 3.3 Day 5 - Patient has been refusing more and more services each day - Discussed options of level and goals of care and he still wishes to remain DNR /DNI status - States he is not ready to focus on comfort care yet - BP trend 104-126/65-88 - HR controlled, rate trend 98-101 - Tmax 99.1 - Sat > 92% on 3L NC Day 6 - Still having tachycardia on and off, sinus, trend 94-116 - Labetalol PRN - Amlodipine daily - Started on Nystatin TID - Hypokalemia resolved - GFR stable - Continue antibiotics Day 7 - Significantly improved oxygenation - Clinically audible breath sounds on R lung apex - BP trend 110-137/65-93 - FR trend 95-102 - SatO2 > 92% on 28% FiO2 - Repeat procalcitonin negative - Completed antibiotic regimen Day 8 - Physical exam significantly improved, there is audible air entry on BL posterior lung ho - Patient appears less short of breath - Refused therapies yesterday, discussed importance of compliance to reduce length of stay - PT/OT still recommending SNF - Transitioned Solumedrol to Prednisone at 75% of dose, 80mg BID - DC IV fluids - Discontinued Cherry catheter and patient voided without any difficulties - 4L on activity and 2L at rest - BP trend 101-148/70-88, controlled Day 9 - Refusing to drink supplements and is ingesting very small amount of calories, dietary will evaluate how to increase caloric intake - Cough is improved and physical exam with significant improvement - He is however refusing to work with PT so sitting on side of bed to eat breakfast drops his sats and requires increase in O2 rate - He has been accepted in [facility] but they do not have a bes - compensator worker will discuss with patient if there are other places he is willing to go to - Tolerating steroid taper - BP trend 123-147/74-96 - HR trend 78-117 - Sat > 92% on 2L at rest and $ on activity - Tmax 97.9 - Patient Instructions Diet, Other: nutritional supplements - Discharge Plan *PRESCRIPTION DRUG MONITORING PROGRAM REVIEWED*: Not Applicable *COPY OF PRESCRIPTION DRUG MONITORING REPORT IN PATIENT DARCIE: Not Applicable Prescriptions/Med Rec: amLODIPine [Norvasc] 10 mg PO DAILY #60 tablet Budesonide [Pulmicort] 0.5 mg NEB BIDRT #10 neb levalbuterol HCL [Xopenex] 1.25 mg NEB QIDRT #20 neb Nystatin [Nystatin Oral Syringe] 500,000 unit PO TID 14 Days #210 ml predniSONE 40 mg PO WITHBREAKFAST #5 tab Sennosides [Senna] 8.6 mg PO BID #60 tablet Tiotropium Br/Olodaterol HCl [Stiolto Respimat Inhal [place]] 2 spray INH BID #4 mist.inhal Home Medications: Home Meds Albuterol [Proventil HFA] 1 puff INH Q4H PRN 01/11/15 [History] Brimonidine Tartrate [Brimonidine Tartrate 0.2% Ophth Soln] 1 drop EYERT BID 11/10 [History] Budesonide/Formoterol [Symbicort 160-4.5 MCG] 2 puff INH BID 06/29/18 [History] Aspirin [Adult Low Dose Aspirin EC] 1 tab PO BEDTIME 08/03/19 [History] Cholecalciferol (Vitamin D3) [Vitamin D3] 1 cap PO DAILY 08/03/19 [History] Dorzolamide HCl/Pf [Dorzolamide 2% Eye Drop] 1 drop EYERT BID 08/03/19 [History] Latanoprost/Pf [Latanoprost 0.005% Eye Drop] 1 drop EYERT BEDTIME 08/03/19 [ History] Thiamine HCl [Vitamin B-1] 1 tab PO DAILY 08/03/19 [History] atorvaSTATin Calcium [Atorvastatin Calcium] 20 mg PO BEDTIME 08/03/19 [History] predniSONE 40 mg PO WITHBREAKFAST #5 tab 08/03/19 [Rx] Budesonide [Pulmicort] 0.5 mg NEB BIDRT #10 neb 08/14/19 [Rx] Nystatin [Nystatin Oral Syringe] 500,000 unit PO TID 14 Days #210 ml 08/14/19 [ Rx] Sennosides [Senna] 8.6 mg PO BID #60 tablet 08/14/19 [Rx] Tiotropium Br/Olodaterol HCl [Stiolto Respimat Inhal [place]] 2 spray INH BID #4 mist.inhal 08/14/19 [Rx] amLODIPine [Norvasc] 10 mg PO DAILY #60 tablet 08/14/19 [Rx] levalbuterol HCL [Xopenex] 1.25 mg NEB QIDRT #20 neb 08/14/19 [Rx] Patient Handouts: Chronic Obstructive Pulmonary Disease Exacerbation, Easy-to- Read, Sepsis, Diagnosis, Adult Forms: ED Department Discharge Referrals: Sarahy Grey MD [Primary Care Provider] - - Discharge Summary/Plan Comment DC Time >30 min.: Yes - General Info Date of Service: 08/14/19 Subjective Update: Feeling ok Slept ok - Patient Data Vitals - Most Recent: Last Vital Signs Temp 97.9 F 08/14/19 04:46 Pulse 78 08/14/19 04:46 Resp 22 H 08/14/19 04:46 BP 121/70 08/14/19 04:46 Pulse Ox 99 08/14/19 06:04 Weight - Most Recent: 61.689 kg - Exam Physical Findings Comments:: Quality Assessment: Supplemental Oxygen, Skin Breakdown. No: Central Line/PICC , Urine Catheter General: Alert, Oriented, Cooperative, Mild Distress HEENT: Pupils Equal, Pupils Reactive, Mucous Membr. Moist/[place], Other (eyes sunken in, bilateral temporal wasting) Neck: Supple, Trachea Midline, No JVD, No Thyromegaly, +2 Carotid Pulse wo Bruit. No: Lymphadenopathy Lungs: Decreased Breath Sounds, Wheezing (end expiratory). No: Crackles, Rales , Rhonchi, Rub, Stridor Cardiovascular: Regular Rate, Regular Rhythm. No: Murmurs, Gallops, Rubs GI/Abdominal Exam: Normal Bowel Sounds, Soft, Non-Tender. No: Distended, Guarding, Rigid, Rebound Back Exam: Other (muscle wasting, obvious intercostal retractions with inspiration) Extremities: Non-Tender, No Pedal Edema, Slow Capillary Refill Skin: Dry, Cool Neurological: No New Focal Deficit
[2019-08-14 08:33] VITALS: BP 121/65
[2019-08-14 08:35] VITALS: PULSE 93
== END 2019-08-14 10:50 | DRG 871 ==
LOC: JD.ED 00:58 → UNDOADMOB 07:32 → JD.MS 07:32 → OBSVTOIN 11:06 → INTOOBSV 11:06 → JD.MS 08-04 11:07 → JD.ICU 08-04 20:03 → OBSVTOIN 08-04 20:03 → JD.ICU 08-04 20:03 → JD.MS 08-04 20:03
PROVIDERS: ADMIT Internal Medicine; ATTEND Internal Medicine
DX: J43.9 Emphysema, unspecified (principal); A41.9 Sepsis, unspecified organism; J18.9 Pneumonia, unspecified organism; E43 Unspecified severe protein-calorie malnutrition; J96.21 Acute and chronic respiratory failure with hypoxia; J44.1 Chronic obstructive pulmonary disease with (acute) exacerbation; R64 Cachexia; Z68.1 Body mass index [BMI] 19.9 or less, adult; E87.0 Hyperosmolality and hypernatremia; E87.4 Mixed disorder of acid-base balance; B37.0 Candidal stomatitis; Z98.42 Cataract extraction status, left eye; Z98.41 Cataract extraction status, right eye; E87.2 Acidosis; J44.0 Chronic obstructive pulmonary disease with (acute) lower respiratory infection; Z79.52 Long term (current) use of systemic steroids; Z66 Do not resuscitate; S41.112A Laceration without foreign body of left upper arm, initial encounter; I10 Essential (primary) hypertension; W18.30XA Fall on same level, unspecified, initial encounter; Y92.231 Patient bathroom in hospital as the place of occurrence of the external cause; F10.10 Alcohol abuse, uncomplicated; H54.7 Unspecified visual loss; H40.9 Unspecified glaucoma; E78.00 Pure hypercholesterolemia, unspecified; E87.5 Hyperkalemia; D72.0 Genetic anomalies of leukocytes; I48.91 Unspecified atrial fibrillation; E86.0 Dehydration; E87.8 Other disorders of electrolyte and fluid balance, not elsewhere classified; E87.6 Hypokalemia; E83.39 Other disorders of phosphorus metabolism; Z79.51 Long term (current) use of inhaled steroids; Z79.82 Long term (current) use of aspirin; Z71.41 Alcohol abuse counseling and surveillance of alcoholic; Z98.49 Cataract extraction status, unspecified eye; Z87.891 Personal history of nicotine dependence; Z99.81 Dependence on supplemental oxygen; Z79.899 Other long term (current) drug therapy
CPT/HCPCS: 36415 ×2; 36600 ×4; 70450; 71045; 80048 ×2; 80053; 82803 ×4; 83605; 83735 ×2; 84100 ×2; 84145; 84484; 85025 ×2; 85610; 86738; 87040 ×2; 87641; 87899; 93005 ×2; 94640 ×8; 94660; 94761; 96361 ×3; 96365; 96366 ×2; 96367; 96368; 96372 ×2; 96375 ×2; 96376 ×2; 97167; 97535 ×2; 99285; A9270 ×10; G0378 ×2; J0456; J1650 ×2; J1956; J2543 ×2; J2920 ×3; J2930; J7030 ×2; J7050 ×3; J7120 ×3; 51702; 71275; 71275-26; 87486; 87581; 87632; 87798; 87804; 96374; 97110-GO; 97110-GP; 97162-GP; 97530-GO; 97530-GP; 99220; 99232; 99233; 99239; J0610; J1815-GY; J3370; J3480; J3490; J7612-GY; J7620-GY; Q9967